=== PATIENT | male | born 1940 | race Caucasian/White ===

== ENCOUNTER → 2017-06-25 11:13 | Outpatient (CLI) | payer MEDICARE, SELFPAY ==
[2017-06-25 11:40] LABS: Absolute Lymphocyte Count 0.95 X10^3/ul (0.83-4.51); Absolute Neutrophil Count 2.7 X10^3/uL (2.0-7.7); Basophil# 0.05 X10^3/uL; Basophil% 1.1 % (0-1); Eosinophil# 0.24 X10^3/uL; Eosinophils% 5.3 % (0-5); Hematocrit 40.5 % (40-54); Hemoglobin 13.2 g/dl (13.0-16.5); Lymphocyte # 0.95 X10^3/ul (4.0); Lymphocyte % 20.9 % (19-41); Mean Corp Hgb Conc 32.6 g/gl (32-36); Mean Corpuscular Hgb 28.7 pg (27.0-32.0); Mean Platelet Vol. 9.3 fl (6.2-12.0); Monocyte# 0.62 X10^3/uL; Monocyte% 13.7 % (0-10); Neutrophil # 2.67 X10^3/uL (2.7-7.7); Neutrophil % 58.8 % (47-70); Platelet Count 211 K/mm3 (150-450); RBC Distribution Width CV 14.1 % (11.6-14.6); RBC Distribution Width SD 45.3 fl (35.1-43.9); White Blood Count 4.5 K/mm3 (4.4-11.0)
[2017-06-25 11:41] LABS: POSITIVE COUNT NO; POSITIVE DIFFERENTIAL NO; POSITIVE MORPHOLOGY NO
== END ==
PROVIDERS: Family Provider Family Medicine; PCP Family Medicine
DX: D64.9 Anemia, unspecified (principal)
CPT/HCPCS: 36415; 85025

== ENCOUNTER → 2018-01-01 09:24 | Outpatient (CLI) | payer MEDICARE, SELFPAY ==
[2018-01-01 12:28] LABS: PSA,Total- Diagnostic < 0.01 ng/mL (0.0-4.0)
== END ==
PROVIDERS: Family Provider Family Medicine; PCP Family Medicine; Visit Provider Urology
DX: C61 Malignant neoplasm of prostate (principal)
CPT/HCPCS: 36415; 84153

== ENCOUNTER → 2018-03-04 10:39 | Outpatient (CLI) | payer MEDICARE, SELFPAY ==
[2017-08-29 08:55] VITALS: BMI 26.4
--- NOTE | 2018-03-04 | CYSPIN_PTH ---
PATIENT: MARICEL DANIEL LOC: [facility] U#:[id number] AGE/SX: 84/M ROOM: RE03/04/[address]: Dr. Garett Castaneda MD : 1940 BED: DIS: SPEC #: [id number] RECD: 03/04/18 14:43 STATUS: HILARY MONALISA #: [id number] CRISTIANA: 03/04/18 00:[address]: Garett Castaneda DEPT: CYTOLOGY RECD BY: Melvin Severino Tissues: Urine Procedures: Pap Stain (control) Special Stain Group II Cytospin Fluid HEADER OPERATION: Not noted PRE-OP DIAGNOSIS: Hematuria TISSUE SUBMITTED: Urine for cytology DIAGNOSIS CYTOLOGY Urine for cytology (cytospin): Negative for malignant cells. AM:iram 03/05/18 COMMENT The specimen primarily contains blood and scattered degenerating epithelioid cells. Clinical correlation is suggested. CYTOLOGY STUDY Slides are reviewed. CYTOLOGY GROSS Received is 5 ml of brown cloudy fluid labeled with the patient's name and and designated per the requisition as urine. Submitted for cytology preparation. 03/04/18 TC:5 CPT: 06511
[2018-03-04 12:47] LABS: Absolute Lymphocyte Count 0.77 X10^3/ul (0.83-4.51); Absolute Neutrophil Count 3.8 X10^3/uL (2.0-7.7); Basophil# 0.04 X10^3/uL; Basophil% 0.7 % (0-1); Eosinophil# 0.15 X10^3/uL; Eosinophils% 2.8 % (0-5); Hematocrit 41.8 % (40-54); Hemoglobin 13.6 g/dl (13.0-16.5); Lymphocyte # 0.77 X10^3/ul (4.0); Lymphocyte % 14.1 % (19-41); Mean Corp Hgb Conc 32.5 g/gl (32-36); Mean Corpuscular Hgb 29.5 pg (27.0-32.0); Mean Corpuscular Volume 90.7 fL (80-94); Mean Platelet Vol. 10.1 fl (6.2-12.0); Monocyte# 0.67 X10^3/uL; Monocyte% 12.3 % (0-10); Neutrophil # 3.81 X10^3/uL (2.7-7.7); Neutrophil % 69.9 % (47-70); Platelet Count 220 K/mm3 (150-450); RBC Distribution Width SD 46.1 fl (35.1-43.9); Red Blood Count 4.61 M/mm3 (4.6-6.2); White Blood Count 5.5 K/mm3 (4.4-11.0)
[2018-03-04 12:57] LABS: POSITIVE COUNT NO; POSITIVE DIFFERENTIAL NO; POSITIVE MORPHOLOGY NO
[2018-03-04 13:08] LABS: ALB/GLOB Ratio 1.3 RATIO (0.9-2.4); AST(SGOT) 15 U/L (15-37); Alanine Aminotransfer ALT/SGPT 17 U/L (16-61); Albumin, Serum 3.6 g/dL (3.2-5.0); Alkaline Phosphatase 90 U/L (45-117); Anion Gap 8 (5-15); BUN 11 mg/dL (7-18); BUN/Creat Ratio 15.8 RATIO (10-20); Calcium,Total 8.8 mg/dL (8.5-10.1); Chloride 109 mmol/L (98-107); EST Glomerular Filtration Rate 116 mL/min (>60); Est Glom Filt Rate - Afr Amer 140 mL/min (>60); Globulin 2.8 g/dL (2.2-4.2); Glucose 102 mg/dL (74-106); Potassium 4.2 mmol/L (3.5-5.1); Protein, Total 6.4 g/dL (6.4-8.2); Sodium Level 142 mmol/L (136-145)
[2018-03-04 13:29] LABS: Cytology, Body Fluid / CSF SEE PATHOLOGY REPORT; Mucous, Urine 0 SEEN /hpf (<or=2+); Squamous Epithelial Cells - UA 0 SEEN /hpf (0-5)
[2018-03-04 13:41] LABS: Color, Urine Amber (Yellow); Glucose, Dipstick Normal (Normal); Ketone-Dipstick 5 mg/dl (Negative); Leukocyte Esterase-Dipstick 100 /ul (Negative); Nitrite-Dipstick Positive (Negative); Occult Blood-Urine 250 /ul (Negative); Protein-Dipstick 100 mg/dl (Negative); Urine Bilirubin Dipstick Negative (Negative); Urine Clarity Sl. Cloudy (Clear); Urine Urobilinogen 1 mg/dl (Normal)
[2018-03-04 13:48] LABS: Bacteria 1+ /hpf (None Seen); Red Blood Cells-Urine 25-50 SEEN /hpf (0-5); White Blood Cells 10-25 SEEN /hpf (0-5)
[2018-03-04 14:09] LABS: Microalbumin:Creatinine Ratio 51.5 mg/g CRE (<30 mg/g CRE)
== END ==
PROVIDERS: Family Provider Family Medicine; PCP Family Medicine; Referring Provider Family Medicine; Visit Provider Family Medicine
DX: R31.0 Gross hematuria (principal)
CPT/HCPCS: 36415; 80053; 81001; 82043; 82570; 85025; 87086; 87088; 88108; 88313

== ENCOUNTER → 2018-03-08 13:48 | Outpatient (CLI) | payer MEDICARE, SELFPAY ==
--- NOTE | 2018-03-08 13:53 | US_ITS ---
STUDY: RENAL ULTRASOUND - COMPLETE REASON FOR EXAM: Male, 77 years old. Gross hematuria and flank pain TECHNIQUE: Ultrasound evaluation of the kidneys was performed with real-time and static durant-scale imaging. COMPARISON: CT abdomen and pelvis 10/25/2013. FINDINGS: RIGHT KIDNEY: Normal location of the right kidney, which is normal in size. The right kidney measures 11 x 6.5 x 5 cm. There is a normal cortex of the right kidney. The renal cortex measures 1 cm. There is a cortical upper pole 1.4 x 1.3 x 1.2 cm, inferior pole 1.4 x 1.4 x 1.7 cm, and exophytic upper pole 0.5 cm cyst right renal mass or cyst. There are no right renal calculi. There is no right hydronephrosis. DISTAL RIGHT URETER: There is non-visualization of the distal right ureter. There is no demonstrated right ureterovesical junction calculus. There is no demonstrated right ureteral jet. LEFT KIDNEY: Normal location of the left kidney, which is normal in size. The left kidney measures 12.5 x 6 x 5 cm. There is a normal cortex of the left kidney. The renal cortex measures 1.4 cm. There is a mid renal 1.4 x 1.2 x 1.2 and a 1.1 x 1.0 x 1.3 cm cyst. There are no left renal calculi. There is no left hydronephrosis. DISTAL LEFT URETER: There is non-visualization of the distal left ureter. There is no demonstrated left ureterovesical junction calculus. There is no demonstrated left ureteral jet. Multiple calcified granulomata. BLADDER: The distended urinary bladder has a volume of 5.5 ml. US/Kidney and Bladder IMPRESSION: Bilateral renal cysts without hydronephrosis. Insufficient distention of the urinary bladder. Electronically Signed: Liz Griffith MD at 7:03 EST , Service support ,
== END ==
PROVIDERS: Family Provider Family Medicine; PCP Family Medicine; Referring Provider Family Medicine; Visit Provider Family Medicine
DX: R31.0 Gross hematuria (principal)
CPT/HCPCS: 76770

== ENCOUNTER → 2018-05-01 14:45 | Outpatient (CLI) | payer MEDICARE, SELFPAY ==
[2018-04-02 13:29] VITALS: BMI 25.6
--- NOTE | 2018-05-01 14:49 | CT_ITS ---
STUDY: CT ABDOMEN AND PELVIS WITH AND WITHOUT CONTRAST REASON FOR EXAM: Male, 77 years old. Gross hematuria RADIATION DOSAGE (If Supplied By Facility): CTDIvol = ( 27.64 ) mGy, DLP = ( 2843.62 ) mGycm TECHNIQUE: Transaxial images were obtained from the dome of the diaphragm to the symphysis pubis without oral contrast. 100 ml of Isovue 300 contrast was administered. Sagittal and coronal images were reconstructed. Individualized dose optimization techniques were used for this CT. COMPARISON: January 01, 2014 FINDINGS: The lung bases are clear. Occasional small cystic areas in the liver. No dilated intrahepatic biliary radicles. The gallbladder is normal with no calcifications within it. There is no pericholecystic fluid collection or streakiness The spleen is normal. The pancreas is normal. Both adrenals are normal. Small benign cysts bilaterally in the kidneys The stomach is normal. There is no bowel distention, acute appendicitis or diverticulitis. No constricting lesions are seen in large bowel. The abdominal wall is intact with no hernias. There is no ascites or any free intraperitoneal air. No indication of epiploic appendagitis The vascular structures in the retroperitoneum are normal. There is no retrocrural, retroperitoneal or mesenteric adenopathy. Severe osteoarthritis of the hips especially the left with a 3.4 cm left sided iliopsoas bursal fluid collection. 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 Gross hematuria The urinary bladder is normal.--Metallic seeds within the prostate. There is no inguinal or pelvic adenopathy. There is no inguinal hernia. . CT/CT Abd/Pelvis W/WO Contrast IMPRESSION: No acute appendicitis or diverticulitis. Benign renal cysts bilaterally. No calyceal calculi. 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 A large 3.7 cm left iliopsoas bursal fluid collection (bursitis). The fluid collection has increased from 1.8 cm in the last study of January 01, 2014 Electronically Signed: Otto Sandoval MD at 4:02 EST Tel , Service support ,
[2018-05-01 15:00] LABS: CREATININE FINGERSTICK 0.8 mg/dL (0.70-1.30); EGFR FINGERSTICK > 60.0000 mL/min (>60)
--- OUTSIDE RECORDS SUMMARY | 2018-07-06 13:47 | XMS RPT_ITS ---
:1940 Author Organization OHIP Care Team Providers Name Role Phone Marcos Ruffin Attending Unavailable Castaneda, Lindsey Referring Unavailable Deny Mcnamara Attending Unavailable Deny Mcnamara Referring Unavailable Castaneda, Lindsey Primary Care Unavailable CLAYTON JACKSON Referring Unavailable Castaneda, Lindsey Primary Care Unavailable Aftab Ortega Consulting Unavailable CLAYTON JACKSON Attending Unavailable Tg Jean Attending Unavailable Natalie Perry Attending Unavailable Ángel Garza Attending Unavailable Castaneda, Lindsey Referring Unavailable Castaneda, Lindsey Primary Care Unavailable Aftab Ortega Attending Unavailable Aftab Ortega Referring Unavailable Castaneda, Lindsey Primary Care Unavailable Castaneda Lindsey Attending Unavailable Castaneda, Lindsey Primary Care Unavailable Castaneda, Lindsey Referring Unavailable Castaneda, Lindsey Attending Unavailable Castaneda, Lindsey Referring Unavailable Lindsey Castaneda Primary Care Unavailable DENY MCNAMARA Attending Unavailable LINDSEY CASTANEDA Referring Unavailable Sintia MCNAMARA DENY Shepard Attending Unavailable LINDSEY CASTANEDA Referring Unavailable LINDSEY CASTANEDA A Primary Care Unavailable PROBLEMS PROBLEMS DATE TYPE CONDITION / CODE ATTENDING STATUS SOURCE 04/19/2018 Active Gross hematuria / NAIMAALEXDENY Active [place] R31.0(ICD-10) [facility] Other [place] Repository 04/19/2018 Active Malignant neoplasm NAIMA DENY Active [place] of prostate / [facility] Other C61(ICD-10) [place] Repository 04/19/2018 Active Urgency of NAIMA DENY Active [place] urination / [facility] Other R39.15(ICD-10) [place] Repository 04/19/2018 Admitting Unknown / Sintia MCNAMARA Active [facility] diagnosis UNK(Unknown) DENY [facility] Repository 03/04/2018 Unknown R31.0 - Gross CastanedaLindsey Active [place] hematuria / [facility] R31.0(ICD-10) Hospital Repository 01/01/2018 Unknown C61 - Malignant Jordan, Aftab Active [place] neoplasm of [facility] prostate / Hospital C61(ICD-10) Repository 08/29/2017 Unknown I48.91 - Roof, Ángel Ca Active [place] Unspecified atrial Community fibrillation / Hospital I48.91(ICD-10) Repository 06/25/2017 Unknown D64.9 - Anemia, CLAYTON JACKSON Active [place] unspecified / Community D64.9(ICD-10) Hospital Repository PROCEDURES PROCEDURES No Procedure Records FoundRESULTS RESULTS CREATININE FINGERSTICK Collected: 05/01/2018 Status: F Source: [place] 2:[address] [facility] REPOSITORY TYPE CODE TESTS RESULT OUT OF RANGE REFERENCE UNITS LAB L9100.0210 0.70-1.30 mg/dL Normal CREATININE WB 0.8 LAB L9100.0220 >60 mL/min EGFR WB Normal > 60.0000 Performed By: #### L9100.0200 #### [facility] Point of Care [address] [place] [address] CT ABD/PELVIS W/WO Observed: 05/01/2018 Status: F Source: [place] CONTRAST 2:[address] [facility] REPOSITORY [facility] Imaging Services [address] [place] [address] CT Abd/Pelvis W/WO Contrast MR#: [id number] Acct: [id number] Name: RONAL DANIEL Rep #: [id number] : 1940 M 77 From: Otto Sandoval MD PCP: Lindsey Castaneda MD Status: REG CLI Study: CT Abd/Pelvis W/WO Contrast Date of Exam: 05/01/18 Exam# [id number] Ordering Dr: Deny Mcnamara MD STUDY: CT ABDOMEN AND PELVIS WITH AND WITHOUT CONTRAST REASON FOR EXAM: Male, 77 years old. Gross hematuria RADIATION DOSAGE (If Supplied By Facility): CTDIvol = ( 27.64 ) mGy, DLP = ( 2843.62 ) mGycm TECHNIQUE: Transaxial images were obtained from the dome of the diaphragm to the symphysis pubis without oral contrast. 100 ml of Isovue 300 contrast was administered. Sagittal and coronal images were reconstructed. Individualized dose optimization techniques were used for this CT. COMPARISON: January 01, 2014 FINDINGS: The lung bases are clear. Occasional small cystic areas in the liver. No dilated intrahepatic biliary radicles. The gallbladder is normal with no calcifications within it. There is no pericholecystic fluid collection or streakiness The spleen is normal. The pancreas is normal. Both adrenals are normal. Small benign cysts bilaterally in the kidneys The stomach is normal. There is no bowel distention, acute appendicitis or diverticulitis. No constricting lesions are seen in large bowel. The abdominal wall is intact with no hernias. There is no ascites or any free intraperitoneal air. No indication of epiploic appendagitis The vascular structures in the retroperitoneum are normal. There is no retrocrural, retroperitoneal or mesenteric adenopathy. Severe osteoarthritis of the hips especially the left with a 3.4 cm left sided iliopsoas bursal fluid collection. 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 Gross hematuria The urinary bladder is normal.--Metallic seeds within the prostate. There is no inguinal or pelvic adenopathy. There is no inguinal hernia. . CT/CT Abd/Pelvis W/WO Contrast IMPRESSION: No acute appendicitis or diverticulitis. Benign renal cysts bilaterally. No calyceal calculi. 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 A large 3.7 cm left iliopsoas bursal fluid collection (bursitis). The fluid collection has increased from 1.8 cm in the last study of January 01, 2014 Electronically Signed: Otto Sandoval MD at 4:02 EST Tel , Service support , CC: Deny Mcnamara MD; Lindsey Castaneda MD; Aftab Ortega MD Salad Maker: Signed CNPN Observed: 04/24/2018 Status: COMPLETED Source: [facility] 12:00 AM CLINIC OTHER CAMPUS REPOSITORY Telephone (UROLAE) RONAL DANIEL ([id number]) 1940 M [facility] Date Time Provider Department 04/24/18 DENY MCNAMARA During your visit today, we recorded the following information about you: Macie Ramirez 04/24/2018 10:55 AM Addendum Amisha from [facility] called asking to speak with you regarding this patient's insurance. She said that it is OON for their facility. If he wants to keep the appointment, he will have to sign a form stating that he is financially responsible. She also said that she spoke with their precert department and they informed her that he may have OON benefits. If he does, our office is responsible for following the protocol to get it covered. She also mentioned that the order needed faxed, which I went ahead and did. This is FYI. Call back # . Allergies As of Date: 04/24/2018 Noted Allergy Reaction ROFECOXIB 09/22/2010 16 - Unknown TETANUS AND DIPHTHERIA TOXOIDS, A*05/24/2007 Comments: Sweating and blood presure drops Date Reviewed: 04/19/2018 Reviewed by: Deny Mcnamara - Fully Assessed Reason for Visit: CT Scan [Other] Prescriptions as of 04/24/2018 Sig: AMLODIPINE 5 MG TABLET Take 5 mg by mouth. LEFLUNOMIDE 10 MG TABLET LEFLUNOMIDE 10 MG TABS PREDNISONE 5 MG TABLET PREDNISONE 5 MG TABS XARELTO 20 MG TABLET Take 20 mg by mouth daily wit* ACETAMINOPHEN 500 MG TABLET TYLENOL ARTHRITIS PAIN 650 MG* MIRABEGRON ER 50 MG TABLET,EX* Take 1 tablet by mouth once d* CITALOPRAM 10 MG TABLET Take 10 mg by mouth once guero* * HYDROXYCHLOROQUINE 200 MG TAB* Take 1 tablet by mouth twice * * CELEBREX 200 MG CAPSULE Take one(1) capsule daily. Problem List As Of Date 04/24/2018 Noted Resolved JOINT PAIN-SHLDER [M25.519] INVALID FOR* TRAUM ARTHROPATHY-SHLDER [M12.519] INVALID FOR* Generalized pain [R52] INVALID FOR* Other physical therapy [CNK1853] INVALID FOR* Acute gastritis without mention of hemorrhage [*INVALID FOR* Hemorrhage of gastrointestinal tract, unspecifi*INVALID FOR* Diverticulosis of colon (without mention of hem*INVALID FOR* Nonspecific abnormal finding in stool contents *INVALID FOR* Internal hemorrhoids without mention of complic*INVALID FOR* Piriformis syndrome [G57.00] INVALID FOR* Achilles bursitis or tendinitis [M76.60] INVALID FOR* Lumbar spondylosis [M47.816] INVALID FOR* Trochanteric bursitis [M70.60] INVALID FOR* Lumbar radiculopathy [M54.16] INVALID FOR* Lumbar spondylosis [M47.816] INVALID FOR* Lumbar stenosis [M48.061] INVALID FOR* Muscle weakness (generalized) [M62.81] INVALID FOR* Tibialis tendinitis [M76.829] INVALID FOR* Pain in joint, lower leg [M25.569] INVALID FOR* Encounter Status:Closed by MACIE MOREIRA on 04/24/18 GLORIA Observed: 04/19/2018 Status: COMPLETED Source: [place] 11:00 AM CLINIC OTHER CAMPUS REPOSITORY Office Visit (AKURFL) ERMARONAL JULIAN ([id number]) 1940 M [facility] Date Time Provider Department 04/19/18 11:00 AM DENY MCNAMARA During your visit today, we recorded the following information about you: Blood pressure Weight Height 148/92 86.2 kg 1.829 m Deny Mcnamara MD 04/19/2018 12:53 PM Signed NEW PATIENT HISTORY AND PHYSICAL EXAM HPI Ronal Daniel is a 77 year old male who presents with hematuria; 3 - 4 day gross hematuria ; In Feb 2018 ; Was given 1 week abx ; ; resolved ; No recurrence ; H/o IMRT , 40 tx in 2013 ; Dr Car Developed urgency and frequency ; soft stools ; Reports recent PSA approx 2 - 3 m ago ; states was very low ; 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 5 TIMES IN PAST MONTH NEED TO URINATE AGAIN WITHIN 2 HRS OF LAST EMPTY? 5 TIMES IN PAST MONTH YOU HAVE STOPPED AND STARTED URINE FLOW? 0 TIMES IN THE PAST MONTH YOU FOUND IT DIFFICULT TO POSTPONE URINATING? 4 TIMES IN THE PAST MONTH YOU HAVE HAD A WEAK URINARY STREAM? 5 TIMES IN PAST MONTH YOU HAVE HAD TO PUSH OR STRAIN TO URINATE? 0 TIMES IN PAST MONTH YOU GET UP TO URINATE FROM SLEEP UNTIL AWAKE? 4 HOW WOULD YOU FEEL IF YOU HAD TO LIVE WITH YOUR URINARY CONDITION IT IS NOW? 6 - Terrible WHAT IT THE TOTAL AUA SCORE? 23 Renal US : report [place] 03/08/18: B renal cysts , no hydro ; Cytology negative 03/04/18 UA nov nitrite + ; culture negative Pr CA : 10/14/13: R apex Dilliner 7 = 3 + 4 , R base Gl 6 = 3 + 3 Creatinine Date Value Ref Range Status 07/30/2000 0.8 0.7 - 1.4 mg/dL Final No results found for: PSA No results found for: COLOR, CLARITY, UGLUC, UBILI, UKET, SPGR, UHB, UPH, UPROT, UROBILINOGEN, NITRITES, LEUKEST REVIEW OF SYSTEMS Review of Systems Constitutional: Positive for chills. Negative for fatigue, fever and unexpected weight change. HENT: Negative for sore throat and trouble swallowing. Eyes: Positive for visual disturbance. Respiratory: Negative for shortness of breath and wheezing. Cardiovascular: Negative for chest pain and leg swelling. Gastrointestinal: Positive for abdominal pain, blood in stool, constipation and diarrhea. Negative for nausea. Endocrine: Positive for cold intolerance, heat intolerance and polyuria. Genitourinary: Positive for decreased urine volume, dysuria, frequency, hematuria and urgency. Negative for difficulty urinating, enuresis and flank pain. Nocturia ED Dribbling Musculoskeletal: Positive for arthralgias and back pain. Skin: Negative for rash. Neurological: Positive for dizziness. Negative for headaches. Hematological: Does not bruise/bleed easily. Psychiatric/Behavioral: Negative for behavioral problems and confusion. Anxiety MEDICATIONS: amLODIPine (NORVASC) 5 mg tablet, Take 5 mg by mouth. leflunomide (ARAVA) 10 mg tablet, LEFLUNOMIDE 10 MG TABS predniSONE (DELTASONE) 5 mg tablet, PREDNISONE 5 MG TABS XARELTO 20 mg tablet, Take 20 mg by mouth daily with dinner. acetaminophen (TYLENOL) 500 mg tablet, TYLENOL ARTHRITIS PAIN 650 MG CR-TABS citalopram hydrobromide 10 mg tablet, Take 10 mg by mouth once daily. hydroxychloroquine (PLAQUENIL) 200 mg ORAL tablet, Take 1 tablet by mouth twice daily. celecoxib(CELEBREX 200 MG CAP), Take one(1) capsule daily. iv contrast (will be provided with radiology test), CT Urogram WO/W Inject, intravenously, once for 1 dose.No IV access, insert saline lock prior to the beginning of sedation, infusion, injection of imaging exam. Discontinue saline lock post exam. If Pt. has a central line or IVAD, may access for administration according to line specific nursing protocol. Once exam is complete flush line and de-access according to line specific nursing protocol in the CT contrast administration guidelines link. 0.9 % sodium chloride (NACL 0.9%) solution, Inject 172.4 mL intravenously one time only for 1 dose. Administer at rate defined per CT contrast administration specifications. To be provided with radiology test. mirabegron (MYRBETRIQ) 50 mg Tb24, Take 1 tablet by mouth once daily. HISTORIES PAST MEDICAL HISTORY Diagnosis Date - Arthritis - Bladder infection - Diverticulosis of colon (without mention of hemorrhage) - Hemorrhage of gastrointestinal tract, unspecified - Impotence - PMH - PAST MEDICAL HISTORY OF chronic inflammation left shoulder PAST SURGICAL HISTORY Procedure Laterality Date - COLONOSCOP W/ OR W/O [facility] SPEC 09/19/2010 Colonoscopy - EGD W/O OR W/BRUSH/WASH 09/19/2010 EGD - KNEE SCOPE,DIAGNOSTIC Arthroscopy, knee both - REPAIR ACHILLES TENDON 05/22/12 [facility] - REPAIR ING HERNIA,5+Y/O,REDUCIBL Hernia repair, inguinal - REPAIR ROTATOR CUFF,ACUTE Rotator cuff repair X 2 - left - Right shoulder injection aprox 1 year ago. - TOTAL KNEE REPLACEMENT Knee replacement, total left SOCIAL HISTORY Social History Substance Use Topics - Smoking status: Former Smoker - Smokeless tobacco: Never Used Comment: quit at age 19 after smoking for 5 years - Alcohol use Yes Comment: wine- none for 3 months Review of system, history including past medical history, surgical history, family history and social history reviewed and confirmed by me. PHYSICAL EXAMINATION General appearance: Well appearing, alert, in no acute distress and well-hydrated, well nourished Skin: Respiratory: normal resp effort ; ASSESSMENT/PLAN: 1. Gross hematuria - ICD9: 599.71, ICD10: R31.0 (primary diagnosis) - CT UROGRAM WO/W IVCON - IV CONTRAST (RADIOLOGY PROCEDURE) - SODIUM CHLORIDE 0.9 % INTRAVENOUS SOLUTION 2. Malignant neoplasm of prostate (HCC) - ICD9: 185, ICD10: C61 3. Urgency of urination - ICD9: 788.63, ICD10: R39.15 Deny Mcnamara MD Check CT urogram, Trial myrbetriq Call with result ; He will still f/u with urologist in [place] I spent 35 minutes in the visit, with more than 50% of the total [id number] time of the visit in counseling / coordination of care. Referring Provider: LINDSEY CASTANEDA [[id number]] Allergies As of Date: 04/19/2018 Noted Allergy Reaction ROFECOXIB 09/22/2010 16 - Unknown TETANUS AND DIPHTHERIA TOXOIDS, A*05/24/2007 Comments: Sweating and blood presure drops Date Reviewed: 04/19/2018 Reviewed by: Deny Mcnamara - Fully Assessed Reason for Visit: Hematuria [335] Primary Visit Diagnosis:Gross hematuria [R31.0] Other Visit Diagnoses:Malignant neoplasm of prostate (HCC) [C61] Urgency of urination [R39.15] Order(s):UA DIP, URINE (POC) [[id number]] Order #: [id number]. #:[id number] CT UROGRAM WO/W IVCON [[id number]] Order #: [id number] FUTURE iv contrast (will be provided with radiology test)CT Urogram WO/W Inject, intravenously, once for 1 dose.No IV access, insert saline lock prior to the beginning of sedation, infusion, injection of imaging exam. Discontinue saline lock post exam. If Pt. has a central line or IVAD, may access for administration according to line specific nursing protocol. Once exam is complete flush line and de-access according to line specific nursing protocol in the CT contrast administration guidelines link.Disp: 1 EachRfl: 0 0.9 % sodium chloride (NACL 0.9%) solutionInject 172.4 mL intravenously one time only for 1 dose. Administer at rate defined per CT contrast administration specifications. To be provided with radiology test.Disp: 1 EachRfl: 0 mirabegron (MYRBETRIQ) 50 mg [id number] 1 tablet by mouth once daily.Disp: 30 tabletRfl: 11 Prescriptions as of 04/19/2018 Sig: AMLODIPINE 5 MG TABLET Take 5 mg by mouth. LEFLUNOMIDE 10 MG TABLET LEFLUNOMIDE 10 MG TABS PREDNISONE 5 MG TABLET PREDNISONE 5 MG TABS XARELTO 20 MG TABLET Take 20 mg by mouth daily wit* ACETAMINOPHEN 500 MG TABLET TYLENOL ARTHRITIS PAIN 650 MG* CITALOPRAM 10 MG TABLET Take 10 mg by mouth once guero* * HYDROXYCHLOROQUINE 200 MG TAB* Take 1 tablet by mouth twice * * CELEBREX 200 MG CAPSULE Take one(1) capsule daily. IV CONTRAST (RADIOLOGY PROCED* CT Urogram WO/W Inject, intra* SODIUM CHLORIDE 0.9 % INTRAVE* Inject 172.4 mL intravenously* MIRABEGRON ER 50 MG TABLET,EX* Take 1 tablet by mouth once d* Problem List As Of Date 04/19/2018 Noted Resolved JOINT PAIN-SHLDER [M25.519] INVALID FOR* TRAUM ARTHROPATHY-SHLDER [M12.519] INVALID FOR* Generalized pain [R52] INVALID FOR* Other physical therapy [QPH1380] INVALID FOR* Acute gastritis without mention of hemorrhage [*INVALID FOR* Hemorrhage of gastrointestinal tract, unspecifi*INVALID FOR* Diverticulosis of colon (without mention of hem*INVALID FOR* Nonspecific abnormal finding in stool contents *INVALID FOR* Internal hemorrhoids without mention of complic*INVALID FOR* Piriformis syndrome [G57.00] INVALID FOR* Achilles bursitis or tendinitis [M76.60] INVALID FOR* Lumbar spondylosis [M47.816] INVALID FOR* Trochanteric bursitis [M70.60] INVALID FOR* Lumbar radiculopathy [M54.16] INVALID FOR* Lumbar spondylosis [M47.816] INVALID FOR* Lumbar stenosis [M48.061] INVALID FOR* Muscle weakness (generalized) [M62.81] INVALID FOR* Tibialis tendinitis [M76.829] INVALID FOR* Pain in joint, lower leg [M25.569] INVALID FOR* Prescriptions ordered this encounter Disp Refills Start End IV CONTRAST (RADIOLOGY PROCEDURE) 1 Ea* 0 04/19/2018 04/20/2018 Class: In Office Sig: CT Urogram WO/W Inject, intravenously, once for 1 dose.No IV access, insert saline lock prior to the beginning of sedation, infusion, injection of imaging exam. Discontinue saline lock post exam. If Pt. has a central line or IVAD, may access for administration according to line specific nursing protocol. Once exam is complete flush line and de-access according to line specific nursing protocol in the CT contrast administration guidelines link. SODIUM CHLORIDE 0.9 % INTRAVENOUS SO* 1 Ea* 0 04/19/2018 04/19/2018 Class: In Office Route: INTRAVENOUS Sig: Inject 172.4 mL intravenously one time only for 1 dose. Administer at rate defined per CT contrast administration specifications. To be provided with radiology test. MIRABEGRON ER 50 MG TABLET,EXTENDED * 30 t* 11 04/19/2018 Class: Print RX Route: ORAL Sig: Take 1 tablet by mouth once daily. Questionnaire: AUA QUESTIONNAIRE TIMES IN THE PAST MONTH YOU HAD A FEELING OF NOT EMPTYING BLADDER? -> 5 TIMES IN PAST MONTH NEED TO URINATE AGAIN WITHIN 2 HRS OF LAST EMPTY? -> 5 TIMES IN PAST MONTH YOU HAVE STOPPED AND STARTED URINE FLOW? -> 0 TIMES IN THE PAST MONTH YOU FOUND IT DIFFICULT TO POSTPONE URINATING? -> 4 TIMES IN THE PAST MONTH YOU HAVE HAD A WEAK URINARY STREAM? -> 5 TIMES IN PAST MONTH YOU HAVE HAD TO PUSH OR STRAIN TO URINATE? -> 0 TIMES IN PAST MONTH YOU GET UP TO URINATE FROM SLEEP UNTIL AWAKE? -> 4 HOW WOULD YOU FEEL IF YOU HAD TO LIVE WITH YOUR URINARY CONDITION IT IS NOW? * WHAT IT THE TOTAL AUA SCORE? -> 23 Letter Text Encounter Status:Closed by DENY MCNAMARA MD on 04/19/18 PROGRESS Observed: 04/19/2018 Status: COMPLETED [place]: [place] 10:26 AM [facility] OTHER CAMPUS REPOSITORY O ID: [id number] Author: Deny Mcnamara Service: (none) Author Type: Physician Type: Progress Notes Filed: 04/19/2018 12:53 PM Note Text: NEW PATIENT HISTORY AND PHYSICAL EXAM HPI Ronal Daniel is a 77 year old male who presents with hematuria; 3 - 4 day gross hematuria ; In Feb 2018 ; Was given 1 week abx ; ; resolved ; No recurrence ; H/o IMRT , 40 tx in 2013 ; Dr Car Developed urgency and frequency ; soft stools ; Reports recent PSA approx 2 - 3 m ago ; states was very low ; 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 5 TIMES IN PAST MONTH NEED TO URINATE AGAIN WITHIN 2 HRS OF LAST EMPTY? 5 TIMES IN PAST MONTH YOU HAVE STOPPED AND STARTED URINE FLOW? 0 TIMES IN THE PAST MONTH YOU FOUND IT DIFFICULT TO POSTPONE URINATING? 4 TIMES IN THE PAST MONTH YOU HAVE HAD A WEAK URINARY STREAM? 5 TIMES IN PAST MONTH YOU HAVE HAD TO PUSH OR STRAIN TO URINATE? 0 TIMES IN PAST MONTH YOU GET UP TO URINATE FROM SLEEP UNTIL AWAKE? 4 HOW WOULD YOU FEEL IF YOU HAD TO LIVE WITH YOUR URINARY CONDITION IT IS NOW? 6 - Terrible WHAT IT THE TOTAL AUA SCORE? 23 Renal US : report [place] 03/08/18: B renal cysts , no hydro ; Cytology negative 03/04/18 UA nov nitrite + ; culture negative Pr CA : 10/14/13: R apex Dilliner 7 = 3 + 4 , R base Gl 6 = 3 + 3 Creatinine Date Value Ref Range Status 07/30/2000 0.8 0.7 - 1.4 mg/dL Final No results found for: PSA No results found for: COLOR, CLARITY, UGLUC, UBILI, UKET, SPGR, UHB, UPH, UPROT, UROBILINOGEN, NITRITES, LEUKEST REVIEW OF SYSTEMS Review of Systems Constitutional: Positive for chills. Negative for fatigue, fever and unexpected weight change. HENT: Negative for sore throat and trouble swallowing. Eyes: Positive for visual disturbance. Respiratory: Negative for shortness of breath and wheezing. Cardiovascular: Negative for chest pain and leg swelling. Gastrointestinal: Positive for abdominal pain, blood in stool, constipation and diarrhea. Negative for nausea. Endocrine: Positive for cold intolerance, heat intolerance and polyuria. Genitourinary: Positive for decreased urine volume, dysuria, frequency, hematuria and urgency. Negative for difficulty urinating, enuresis and flank pain. Nocturia ED Dribbling Musculoskeletal: Positive for arthralgias and back pain. Skin: Negative for rash. Neurological: Positive for dizziness. Negative for headaches. Hematological: Does not bruise/bleed easily. Psychiatric/Behavioral: Negative for behavioral problems and confusion. Anxiety MEDICATIONS: amLODIPine (NORVASC) 5 mg tablet, Take 5 mg by mouth. leflunomide (ARAVA) 10 mg tablet, LEFLUNOMIDE 10 MG TABS predniSONE (DELTASONE) 5 mg tablet, PREDNISONE 5 MG TABS XARELTO 20 mg tablet, Take 20 mg by mouth daily with dinner. acetaminophen (TYLENOL) 500 mg tablet, TYLENOL ARTHRITIS PAIN 650 MG CR-TABS citalopram hydrobromide 10 mg tablet, Take 10 mg by mouth once daily. hydroxychloroquine (PLAQUENIL) 200 mg ORAL tablet, Take 1 tablet by mouth twice daily. celecoxib(CELEBREX 200 MG CAP), Take one(1) capsule daily. iv contrast (will be provided with radiology test), CT Urogram WO/W Inject, intravenously, once for 1 dose.No IV access, insert saline lock prior to the beginning of sedation, infusion, injection of imaging exam. Discontinue saline lock post exam. If Pt. has a central line or IVAD, may access for administration according to line specific nursing protocol. Once exam is complete flush line and de-access according to line specific nursing protocol in the CT contrast administration guidelines link. 0.9 % sodium chloride (NACL 0.9%) solution, Inject 172.4 mL intravenously one time only for 1 dose. Administer at rate defined per CT contrast administration specifications. To be provided with radiology test. mirabegron (MYRBETRIQ) 50 mg Tb24, Take 1 tablet by mouth once daily. HISTORIES PAST MEDICAL HISTORY Diagnosis Date - Arthritis - Bladder infection - Diverticulosis of colon (without mention of hemorrhage) - Hemorrhage of gastrointestinal tract, unspecified - Impotence - PMH - PAST MEDICAL HISTORY OF chronic inflammation left shoulder PAST SURGICAL HISTORY Procedure Laterality Date - [facility] - EGD W/O OR W/BRUSH/WASH 09/19/2010 EGD - KNEE SCOPE,DIAGNOSTIC Arthroscopy, knee both - REPAIR ACHILLES TENDON 05/22/12 [facility] - REPAIR ING HERNIA,5+Y/O,REDUCIBL Hernia repair, inguinal - REPAIR ROTATOR CUFF,ACUTE Rotator cuff repair X 2 - left - Right shoulder injection aprox 1 year ago. - TOTAL KNEE REPLACEMENT Knee replacement, total left SOCIAL HISTORY Social History Substance Use Topics - Smoking status: Former Smoker - Smokeless tobacco: Never Used Comment: quit at age 19 after smoking for 5 years - Alcohol use Yes Comment: wine- none for 3 months Review of system, history including past medical history, surgical history, family history and social history reviewed and confirmed by me. PHYSICAL EXAMINATION General appearance: Well appearing, alert, in no acute distress and well-hydrated, well nourished Skin: Respiratory: normal resp effort ; ASSESSMENT/PLAN: 1. Gross hematuria - ICD9: 599.71, ICD10: R31.0 (primary diagnosis) - CT UROGRAM WO/W IVCON - IV CONTRAST (RADIOLOGY PROCEDURE) - SODIUM CHLORIDE 0.9 % INTRAVENOUS SOLUTION 2. Malignant neoplasm of prostate (HCC) - ICD9: 185, ICD10: C61 3. Urgency of urination - ICD9: 788.63, ICD10: R39.15 Deny Mcnamara MD Check CT urogram, Trial myrbetriq Call with result ; He will still f/u with urologist in [place] I spent 35 minutes in the visit, with more than 50% of the total [id number] time of the visit in counseling / coordination of care. CARDIOLOGY VISIT Observed: 04/02/2018 Status: F Source: [place] REPORT 2:[address] [facility] REPOSITORY [facility] [address] [place] [address]. [address] [place] [address] OFFICE VISIT Date of Service: 04/02/18 MR#: [id number] Acct: [id number] Name: RONAL DANIEL Rep #: [id number] : 1940 Provider: Marcos Ruffin MD Age/Sex: 77/M Location: [facility] [place] Status: Signed [facility] Chief Complaint: Follow-up visit Details: RONAL DANIEL, is a 77 M who presents to the office today for a follow-up visit. He is a gentleman with a history of mild cardiomyopathy chronic persistent atrial fibrillation who returns for routine follow-up visit he denies any chest pain, shortness of breath, paroxysmal nocturnal dyspnea or pedal edema he has had no neck arm or jaw discomfort suggest angina no dizziness or diaphoresis no near syncope or syncope. He has been compliant with all his medications. His physical exam here today demonstrates clear lung vital irregular regular heart rate and no pedal edema. Intake Vital Signs04/02/18 Height 6 ft 1 in 04/02/18 Weight: 194 lb 04/02/18 Body Mass Index (BMI) 25.6 04/02/18 Blood Pressure 128/74 H H 04/02/18 Blood Pressure Location Lt brachial Intake Visit Reasons: 6 M FU Head Of Art Required: No Accompanied by: none Is patient in pain?: No Allergies rofecoxib [From Vioxx] Adverse Reaction (Severe, Verified 04/02/18 13:31) Mouth sores tetanus immune globulin Adverse Reaction (Severe, Verified 04/02/18 13:31) Hypotension, diaphresis Medications Acetaminophen [Tylenol Arthritis] 650 mg PO PRN PRN 05/24/16 [History Confirmed 04/02/18] Leflunomide [Arava] 20 mg PO DAILY 05/24/16 [History Confirmed 04/02/18] Rivaroxaban [Xarelto] 20 mg PO DAILY 05/24/16 [History Confirmed 04/02/18] [facility] Medical History Cardiomyopathy in other diseases classified elsewhere (Chronic) Hyperlipidemia (Chronic) Nonrheumatic aortic valve insufficiency (Chronic) Healed ulcer of left foot on examination (Acute) Peripheral vascular disease (Chronic) Skin ulcer of left foot with fat layer exposed (Chronic) Foot ulcer, left (Acute) Raynauds syndrome (Chronic) Atrial fibrillation (Chronic) Embolic disease of toe (Suspected) Malnutrition (Chronic) Rheumatoid arthritis (Chronic) Surgical History History of knee replacement (Resolved) Hx of hernia repair (Resolved) H/O repair of rotator cuff (Resolved) Family History Sister Hypertension Father Cancer Mother No problems noted. Social History Smoking Status: Never smoker alcohol intake: never substance use type: does not use caffeine: Yes Type: coffee Number of servings: 3 what type of physical activity do you participate in: none ROS Const Const: Negative for fatigue, weakness, night sweats, excessive sweating, frequent falls, headache(s) or daytime sleepiness Eyes Eyes: Negative for loss of peripheral vision, transient loss of vision, blind spots, double vision or blurry vision ENT ENT: Negative for headache(s), dizziness, balance problems, Nosebleed/epistaxis, tongue swelling or lip swelling Cardio Chest Pain: No Palpitations: No Edema: None Muscle aches with walking: None Resp Respiratory: Negative for SOB at rest, SOB orthopnea\SOB lying down, Cough, paroxysmal nocturnal dyspnea or SOB with activity GI GI: Negative nausea, vomiting, heartburn, black,tarry stools or bright, red blood in stools : Negative for hematuria Musc Musc: Negative for balance problems, muscle aches/ myalgia, muscle weakness or joint pain Skin Skin: Negative non-healing lesions, unusual bruising or rash Neuro Neuro: Negative for weakness, frequent falls, headache(s), double vision, dizziness, lightheadedness, orthostatic symptoms, blurry vision or lack of coordination Ramses Hematologic/Lymphatic: Negative for easy bruising or easy bleeding Endo Endo: Negative for fatigue, excessive sweating, cold intolerance, heat intolerance, increased thirst/drinking or hair loss Psych Psych: Negative for anxiety or depression Allergy Allergy/Immunology: Negative for throat swelling, Negative for tongue swelling, Negative for hives, Negative for rash, Negative for lip swelling Cardiology Exam Const Appearance: cooperative, healthy appearing, well developed, well groomed and no acute distress Nutritional Appearance: well nourished and average body habitus Orientation: alert, awake and oriented x3 Head Head: normal to inspection, normocephalic and atraumatic Ears: hearing grossly normal bilaterally and external ears normal Nose: external nose normal, nasal mucous membranes and turbinates normal, nares normal, septum normal, no nasal discharge Face and Sinus: face symmetric Mouth: oral mucosae normal, tongue normal, oropharynx normal and moist mucous membranes Teeth and gingiva: dentition normal Throat: posterior oropharynx normal, tonsils normal and uvula midline Eyes General: appearance normal, both eyes and all related structures Eyelids: eyelids normal Conjunctivae: conjunctivae normal Pupils: PERRL, normal by confrontation and accommodation normal EOM: EOM intact bilaterally Neck Neck: normal visual inspection, trachea midline and no JVD JVD: +5 Carotids: normal carotid upstroke and bounding pulses Chest Chest inspection: normal inspection of the chest, symmetric chest movement and normal respiratory effort Auscultation: Bilateral: Clear to Auscultation Cardio Palpation: normal PMI Rhythm: irregular rhythm Heart sounds: S1 normal and S2 normal GI GI: normal to inspection, soft, no hepatosplenomegaly and bowel sounds present Neuro General: alert, awake, oriented x3, no focal sensory deficit, gait normal and moves all extremities Skin Skin: no rashes or lesions noted Extremities Pulses: Normal: Right Femoral Pulse, Left Femoral Pulse, Right Dorsalis Pedis Pulse, Left Dorsalis Pedis Pulse, Right Posterior Tibial Pulse, Left Posterior Tibial Pulse, Right Radial Pulse, Left Radial Pulse Lower Extremity Edema: None: Bilateral Musculoskel Musculoskeletal: No joint tenderness Psych Psychological: normal affect Assessment AND Plan 1. Essential hypertension I10 Plan He does have a history of hypertension and his blood pressure appears to be very well controlled on the current medical therapy my recommendation is to continue the same without making any changes. His last echocardiogram demonstrated an ejection fraction of 45% with mild 1+ mitral regurgitation, tricuspid regurgitation, and aortic regurgitation. 2. Chronic atrial fibrillation I48.2 Plan He does have chronic persistent atrial for ablation with a controlled ventricular response rate. The plan will be for us to continue the same without making any changes. 3. Cardiomyopathy in other diseases classified elsewhere I43 Plan He does have mild cardiomyopathy with no evidence of heart failure. He is on the rivaroxaban at this particular time with no other medications. He has mild mitral tricuspid and aortic regurgitation but this does not appear to have caused any heart failure symptoms.Thank you for allowing me to participate in the care of your patient. Please don't hesitate to call if any issues arise Plan Detail Follow Up 6 Months (r) Coding Level of Care Code Off vis,est,level 3 Diagnoses Essential hypertension I10 Hypertension type: essential hypertension Chronic atrial fibrillation I48.2 Atrial fibrillation type: chronic Cardiomyopathy in other diseases classified elsewhere I43 Coding Level of Care Code Off vis,est,level 3 Diagnoses Essential hypertension I10 Hypertension type: essential hypertension Chronic atrial fibrillation I48.2 Atrial fibrillation type: chronic Cardiomyopathy in other diseases classified elsewhere I43 04/02/18 1402 <Electronically signed by Marcos Ruffin MD> Date Marcos Ruffin MD [facility] Signature: Date (if applicable) CC: Lindsey Castaneda MD KIDNEY AND BLADDER Observed: 03/08/2018 Status: F Source: [place] 1:[address] [facility] REPOSITORY [facility] Imaging Services [address] [place] [address] Kidney and Bladder MR#: [id number] Acct: [id number] Name: RONAL DANIEL Rep #: [id number] : 1940 M 77 From: Liz Griffith MD PCP: Lindsey Castaneda MD Status: REG CLI Study: Kidney and Bladder Date of Exam: 03/08/18 Exam# [id number] Ordering Dr: Lindsey Castaneda MD STUDY: RENAL ULTRASOUND - COMPLETE REASON FOR EXAM: Male, 77 years old. Gross hematuria and flank pain TECHNIQUE: Ultrasound evaluation of the kidneys was performed with real-time and static durant-scale imaging. COMPARISON: CT abdomen and pelvis 10/25/2013. FINDINGS: RIGHT KIDNEY: Normal location of the right kidney, which is normal in size. The right kidney measures 11 x 6.5 x 5 cm. There is a normal cortex of the right kidney. The renal cortex measures 1 cm. There is a cortical upper pole 1.4 x 1.3 x 1.2 cm, inferior pole 1.4 x 1.4 x 1.7 cm, and exophytic upper pole 0.5 cm cyst right renal mass or cyst. There are no right renal calculi. There is no right hydronephrosis. DISTAL RIGHT URETER: There is non-visualization of the distal right ureter. There is no demonstrated right ureterovesical junction calculus. There is no demonstrated right ureteral jet. LEFT KIDNEY: Normal location of the left kidney, which is normal in size. The left kidney measures 12.5 x 6 x 5 cm. There is a normal cortex of the left kidney. The renal cortex measures 1.4 cm. There is a mid renal 1.4 x 1.2 x 1.2 and a 1.1 x 1.0 x 1.3 cm cyst. There are no left renal calculi. There is no left hydronephrosis. DISTAL LEFT URETER: There is non-visualization of the distal left ureter. There is no demonstrated left ureterovesical junction calculus. There is no demonstrated left ureteral jet. Multiple calcified granulomata. BLADDER: The distended urinary bladder has a volume of 5.5 ml. US/Kidney and Bladder IMPRESSION: Bilateral renal cysts without hydronephrosis. Insufficient distention of the urinary bladder. Electronically Signed: Liz Griffith MD at 7:03 EST , Service support , CC: Lindsey Castaneda MD Salad Maker: Signed URINALYSIS, COMPLETE Collected: 03/04/2018 Status: F Source: [place] 1:[address] [facility] REPOSITORY Order Comment: COLOR OF URINE MAY AFFECT DIPSTICK RESULTS. How was Urine Obtained? CLEAN CATCH TYPE CODE TESTS RESULT OUT OF RANGE REFERENCE UNITS LAB L400.3000 Yellow COLOR Normal Dawn LAB L400.3050 Clear Normal CLARITY Sl. Cloudy LAB L400.3200 Normal mg/dl Normal GLUCOSE, UR Normal LAB L400.3300 Negative mg/dL Normal BILIRUBIN URINE Negative LAB L400.3400 Negative mg/dl High 5 KETONE UR LAB L400.3465 1.002-1.030 Normal SP.GR. DIPSTX 1.020 LAB L400.3550 5.0 - 8.0 pH UR Normal 5.0 LAB L400.3600 Negative mg/dl High PROT DIPSTX 100 LAB L400.3700 Normal mg/dl High 1 UROBILI LAB L400.3750 Negative High NITRITE UR Positive LAB L400.3780 Negative /ul High OCCULT BLOOD-UR 250 LAB L400.3800 Negative /ul High LEUK ESTERASE 100 LAB L400.4050 0-5 /hpf WBC Normal 10-25 SEEN LAB L400.4100 0-5 /hpf Normal RBC-UA 25-50 SEEN LAB L400.4150 0-5 /hpf SQUAM 0 Normal EPI SEEN LAB L400.4300 None Seen /hpf 1+ Normal BACTERIA LAB L400.4350 <or=2+ /hpf 0 Normal MUCUS, URINE SEEN Performed By: #### L400.0001 #### [facility] [address] [place], [address] MICROALB:CREAT Collected: 03/04/2018 Status: F Source: [place] RATIO,RANDOM UR 1:[address] [facility] REPOSITORY TYPE CODE TESTS RESULT OUT OF RANGE REFERENCE UNITS LAB L501.1200 NO RANGE EST. mg/dL Normal UR CREAT 237.00 LAB L502.0500 NO RANGE EST. mg/L Normal 122.0 MICROALBUMIN ,UR LAB L502.0600 <30 mg/g CRE mg/g CRE High 51.5 MALB:CREAT Performed By: #### L502.0250 #### [facility] [address] [place], [address] Observed: 03/04/2018 Status: F Source: [place] CULTURE, URINE 1:[address] [facility] REPOSITORY Urine Culture ORGANISM 1: Mixed Gram Pos AND Gram Neg Org Blackburn Count <1000 MIX CULTURE Mixed contaminants. Submit a new specimen if indicated. Performed By: #### M100.0650 #### [facility] [address] [place], [place], [address] CYTOLOGY, BODY FLUID / Collected: 03/04/2018 Status: F Source: [place] CSF 1:[address] [facility] REPOSITORY Order Comment: Specimen Source: URINE TYPE CODE TESTS RESULT OUT OF RANGE REFERENCE UNITS LAB L350.1000 SEE Normal PATHOLOGY CYTOLOGY,BF REPORT /CSF Result Comment: Specimen submitted to Anatomical Pathology Department for testing. Performed By: #### L350.1000 #### [facility] [address] [place], [address] CBC W/DIFF, AUTOMATED Collected: 03/04/2018 Status: F Source: [place] 10:[address] [facility] REPOSITORY TYPE CODE TESTS RESULT OUT OF RANGE REFERENCE UNITS LAB L100.1000 4.4-11.0 K/mm3 Normal WBC 5.5 LAB L100.1200 4.6-6.2 M/mm3 Normal RBC 4.61 LAB L100.1300 13.0-16.5 g/dl Normal HGB 13.6 LAB L100.1400 40-54 % Normal HCT 41.8 LAB L100.1500 80-94 fL Normal MCV 90.7 LAB L100.1600 27.0-32.0 pg Normal MCH 29.5 LAB L100.1700 32-36 g/gl Normal MCHC 32.5 LAB L100.1810 11.6-14.6 % Normal RDW CV 14.0 LAB L100.1820 35.1-43.9 fl High RDW SD 46.1 LAB L100.1900 150-450 K/mm3 Normal PLT 220 LAB L100.2000 6.2-12.0 fl Normal MPV 10.1 LAB L100.2100 47-70 % Normal NEUT% 69.9 LAB L100.2200 19-41 % Low LY% 14.1 LAB L100.2300 0-10 % High MONO% 12.3 LAB L100.2400 0-5 % Normal EO% 2.8 LAB L100.2500 0-1 % Normal BASO% 0.7 LAB L100.2550 0.0-0.9 % Normal IM GRAN % 0.200 Result Comment: IG% - Immature Granulocytes (promyelocytes, myelocytes and metamyelocytes) > 1% indicates that a LEFT SHIFT is Present. LAB L100.2620 2.0-7.7 X10 3/uL Normal Absolute Neut 3.8 LAB L100.2720 0.83-4.51 X10 3/ul Low Absolute Lymph 0.77 Performed By: #### L100.0100 #### [facility] [place], [address] COMPREHENSIVE METABOLIC Collected: 03/04/2018 Status: F Source: [place] CAPONE 10:[address] [facility] REPOSITORY TYPE CODE TESTS RESULT OUT OF RANGE REFERENCE UNITS LAB L501.0100 74-106 mg/dL Normal GLU 102 Result Comment: Fasting Glucose result from 100 to 125 mg/dL suggests IMPAIRED HOMEOSTASIS per A.D.A. criteria. Please note revised GLUCOSE reference range effective 2017. LAB L501.1000 7-18 mg/dL Normal BUN 11 LAB L501.1100 0.70-1.30 mg/dL Normal CREAT,SERUM 0.70 Result Comment: The validity of the calculated GFR AND GFRAA in patients over 70 years has not been determined. Clinical correlation is essential. LAB L501.1110 >60 mL/min Normal EST GFR 116 Result Comment: Non- GFR Calc LAB L501.1115 >60 mL/min Normal EST GFR - AA 140 Result Comment: GFR Calc LAB L501.1300 10-20 RATIO Normal BUN/CRE 15.8 LAB L501.1500 6.4-8.2 g/dL T Normal PROT 6.4 LAB L501.1800 3.2-5.0 g/dL Normal ALB 3.6 LAB L501.1950 2.2-4.2 g/dL Normal GLOB 2.8 LAB L501.2000 0.9-2.4 RATIO Normal A/G 1.3 LAB L501.2200 8.5-10.1 mg/dL CA Normal 8.8 LAB L501.4100 15-37 U/L Normal AST 15 LAB L501.4305 45-117 U/L Normal ALK P 90 LAB L501.4405 16-61 U/L Normal ALT 17 LAB L501.4600 0.20-1.00 mg/dL T Normal BILI 0.80 LAB L501.5300 136-145 mmol/L NA Normal 142 LAB L501.5600 3.5-5.1 mmol/L K Normal 4.2 LAB L501.5900 98-107 mmol/L High CL 109 LAB L501.6100 21.0-32.0 mmol/L Normal CO2 25.0 LAB L501.6200 5-15 Normal GAP 8 Performed By: #### L500.4050 #### [facility] [address] [place], [place], [address] CYTOSPIN ON FLUID Observed: 03/04/2018 Status: F Source: [place] 12:[address] [facility] REPOSITORY Patient: RONAL DANIEL : 1940 (77/M) Acct Num: [id number] Phys: Leonel COBIAN,Lindsey Unit Num: [id number] Loc: [facility] Specimen: [id number] Received: 03/04/18 - 1443 Spec Type: CYSPIN FL TISSUES 1 TISSUES: Urine COMMENT The specimen primarily contains blood and scattered degenerating epithelioid cells. Clinical correlation is suggested. CYTOLOGY GROSS Received is 5 ml of brown cloudy fluid labeled with the patient's name and and designated per the requisition as urine. Submitted for cytology preparation. / 03/04/18 TC:5 CPT: 02294 CYTOLOGY STUDY Slides are reviewed. DIAGNOSIS CYTOLOGY Urine for cytology (cytospin): Negative for malignant cells. AM:iram 03/05/18 HEADER OPERATION: Not noted PRE-OP DIAGNOSIS: Hematuria TISSUE SUBMITTED: Urine for cytology Signed Mehdi Fernando 03/05/18 <signature on file> Performed By: #### PCYSPIN #### [facility] [address] [place], [address] PSA,TOTAL- DIAGNOSTIC Collected: 01/01/2018 Status: F Source: [place] 9:[address] [facility] REPOSITORY TYPE CODE TESTS RESULT OUT OF RANGE REFERENCE UNITS LAB L501.9940 0.0-4.0 ng/mL PSA, Normal DIAGNOSTIC < 0.01 Result Comment: This test was performed using the TPSA assay method for the [employer] chemistry system. Values obtained with different assay methods cannot be used interchangably. When changing PSA assays in the course of monitoring a patient, additional sequential testing should be carried out to confirm baseline values. Performed By: #### L501.9940 #### [facility] [address] [place], [address] CARDIOLOGY VISIT Observed: 08/30/2017 Status: F Source: [place] REPORT 8:[address] [facility] REPOSITORY [facility] [address] [place] [address] OFFICE VISIT Date of Service: 08/29/17 MR#: [id number] Acct: [id number] Name: RONAL DANIEL Rep #: [id number] : 1940 Provider: DARNELL Garza Age/Sex: 77/M Location: [facility] Status: Signed HPI HPI Details: RONAL DANIEL, is a 77 M who presents to the office today for a cardiovascular outpatient follow-up. He has history of mild cardiomyopathy and persistent atrial fibrillation. Pt. denies chest, arm, jaw, or neck discomfort. His exercise tolerance is stable but minimal. Pt. denies symptoms of palpitations, lightheadedness, near syncope, or syncopal episodes. Pt. denies edema or claudication issues. Pt. denies orthopnea, PND, fever, chills, blood in urine, blood in stool, or myalgia. He states random episodes of SOB that is quickly relieved with deep breaths and is not limiting. He states random episode of dizziness that occurs in the morning and resolves on its own. He states his energy level fluctuates. Intake Vital Signs08/29/17 Height 6 ft 1 in 08/29/17 Weight: 200 lb 08/29/17 Body Mass Index (BMI) 26.4 08/29/17 Blood Pressure 142/80 Intake Visit Reasons: 6 M FU Head Of Art Required: No Accompanied by: none Is patient in pain?: No Allergies rofecoxib [From Vioxx] Adverse Reaction (Severe, Verified 08/29/17 08:56) Mouth sores tetanus immune globulin Adverse Reaction (Severe, Verified 08/29/17 08:56) Hypotension, diaphresis Medications Acetaminophen [Tylenol Arthritis] 650 mg PO PRN PRN 05/24/16 [History Confirmed 08/29/17] Leflunomide [Arava] 20 mg PO DAILY 05/24/16 [History Confirmed 08/29/17] Rivaroxaban [Xarelto] 20 mg PO DAILY 05/24/16 [History Confirmed 08/29/17] Ejection fraction %: 40 to 44 PFSH Medical History Cardiomyopathy in other diseases classified elsewhere (Chronic) Hyperlipidemia (Chronic) Nonrheumatic aortic valve insufficiency (Chronic) Healed ulcer of left foot on examination (Acute) Peripheral vascular disease (Chronic) Skin ulcer of left foot with fat layer exposed (Chronic) Foot ulcer, left (Acute) Raynauds syndrome (Chronic) Atrial fibrillation (Chronic) Embolic disease of toe (Suspected) Malnutrition (Chronic) Rheumatoid arthritis (Chronic) Surgical History History of knee replacement (Resolved) Hx of hernia repair (Resolved) H/O repair of rotator cuff (Resolved) Family History Sister Hypertension Father Cancer Mother No problems noted. Social History Smoking Status: Never smoker alcohol intake: never substance use type: does not use caffeine: Yes Type: coffee Number of servings: 3 what type of physical activity do you participate in: none ROS Const Const: Negative for weakness, body ache, fever(s), chills or fatigue ENT ENT: Positive for dizziness Cardio Chest Pain: No Palpitations: No Edema: None Muscle aches with walking: None Resp Respiratory: Positive for SOB with activity; negative for SOB at rest, SOB orthopnea\SOB lying down or paroxysmal nocturnal dyspnea GI GI: Negative nausea, black,tarry stools, bright, red blood in stools or vomiting blood/hematemesis : Negative for hematuria or frequent nighttime urination/ nocturia Musc Musc: Negative for muscle aches/ myalgia Skin Skin: Negative non-healing lesions or rash Neuro Neuro: Positive for dizziness; negative for lightheadedness, near syncope, syncope, orthostatic symptoms or weakness Endo Endo: Negative for fatigue Allergy Allergy/Immunology: Negative for rash Cardiology Exam Const Appearance: cooperative, healthy appearing, comfortable and no acute distress Orientation: alert, awake and oriented x3 Head Head: normal to inspection Ears: hearing grossly normal bilaterally Nose: external nose normal Face and Sinus: face symmetric Mouth: oral mucosae normal Eyes General: appearance normal, both eyes and all related structures Eyelids: eyelids normal Neck Neck: no JVD and normal visual inspection Carotids: normal carotid upstroke Chest Chest inspection: normal inspection of the chest and normal respiratory effort; negative cough Auscultation: Bilateral: Clear to Auscultation Cardio Rate: regular rate Rhythm: irregular rhythm Heart sounds: S1 normal and S2 normal; negative rub or gallop GI GI: normal to inspection Neuro General: alert, awake, oriented x3 and CN's II-XI intact bilaterally Skin Skin: no rashes or lesions noted Extremities Pulses: Normal: Right Posterior Tibial Pulse, Left Posterior Tibial Pulse, Right Radial Pulse, Left Radial Pulse Lower Extremity Edema: None: Bilateral Psych Psychological: normal affect Supplemental Info Echocardiogram from March 2017 showed an estimated ejection fraction 45%, mild global left ventricular systolic dysfunction, mild mitral valve insufficiency, mild tricuspid valve insufficiency, mild to moderate aortic valve insufficiency, mild pulmonic valve insufficiency, RSVP of 26 mmHg, and mild to moderately dilated aortic root of 4.8 cm. Heart catheterization from August 2010 showed ejection fraction of 40 45%, left main coronary artery with no obstructing lesions, LAD with no obstructing lesions, LCx with no obstructing lesions, and RCA with no obstructing lesions. Cardiovascular stress test from August 2010 was a normal exercise myocardial perfusion scan with no evidence of ischemia, previous inferior infarct cannot be excluded, and mild cardiomyopathy was noted. Ankle-brachial index from June 2014 showed no evidence of significant arterial occlusive disease with an REGGIE of 1.28 on the right and 1.19 on the left. Abdominal aorta ultrasound from June 2014 showed no aneurysm or stenosis seen through the aortoiliac segment. Assessment AND Plan 1. Chronic atrial fibrillation I48.2 VANESSA Costa Patient's EKG in office showed atrial fibrillation at a rate of 67 bpm. Patient does describe infrequent, random episodes of dizziness that may be result of his atrial fibrillation. Because this is occurs rarely, we will continue to monitor. He is not on any rate limiting medications. He will continue factor Xa inhibitor. 2. Cardiomyopathy in other diseases classified elsewhere I43 VANESSA Costa Patient's most recent echocardiogram from March 2017 showed estimated ejection fraction 45%. Patient denies any shortness of breath with activity, lower extremity edema, or weight gain. He is not on any diuretics, JEISON inhibitor, or beta-george. We will continue to monitor this. 3. Nonrheumatic aortic (valve) insufficiency I35.1 VANESSA Costa Echocardiogram from March 2017 showed mild to moderate aortic valve insufficiency. We will continue to monitor this through history, exam, and repeat echocardiogram. 4. Nonrheumatic mitral valve insufficiency I34.0 VANESSA Costa Echocardiogram from March 2017 showed mild mitral valve insufficiency. We will continue to monitor this. 5. Non-rheumatic tricuspid valve insufficiency I36.1 VANESSA Costa Echocardiogram from March 2017 showed mild tricuspid valve insufficiency and an RVSP of 26 mmHg. We will continue to monitor this. 6. 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 We will continue to monitor this. 7. Essential hypertension I10 Plan - VANESSA Duke Patient's blood pressure is slightly elevated today in office. He states it is better controlled previously and at other doctor offices. He was asked to continue to monitor this. He is not on any blood pressure medications. He was instructed to contact our office if he notices that it increases or remains elevated. Plan Detail Other Orders Orders: Additional Comments - VANESSA Duke Discussed the above patient with Dr. Ruffin, he agrees with the plan of care. Thank you for allowing us to participate in the patients plan of care, if you have any questions please do not hesitate to call. This note was generated using a voice recognition system and there may be incorrect words, spelling or punctuation that were not noted when reviewing the office note prior to saving. 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 Essential hypertension I10 Hypertension type: essential hypertension Coding Level of Care Code Off vis,est,level 3 Diagnoses Chronic atrial fibrillation I48.2 Atrial fibrillation type: chronic Cardiomyopathy in other diseases classified elsewhere I43 Nonrheumatic aortic (valve) 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 REPOSITORY [facility] [address] [place] [address] 12 Lead EKG performed by [facility] 08/29/17 0850 MR#: [id number] Acct: [id number] Name: RONAL DANIEL Rep #: [id number] : 1940 77 From: Ángel Garza SECTION LABORER-C Attending Dr: Ángel Garza NP Status: DEP AMB Ordering Dr: Ángel Garza SECTION LABORERMusaC Date: 08/29/17 Location: [facility] Sex: M C Admitted: BMS/12 Lead EKG performed by [facility] ECG Report Interpretation Atrial fibrillation - frequent multiform ectopic ventricular beats # VECs = 2, # types 2Low voltage in limb leads. ABNORMAL Electronically signed on 08/29/2017 at 16:56 by Marcos Ruffin 08/29/17 1658 Date Ángel Garza SECTION LABORER-C CC: Lindsey Castaneda MD Date Dictated: 08/29/17 0850 Date Transcribed: 08/29/1750 Salad Maker: EDWIN Signed CBC W/DIFF, AUTOMATED Collected: 06/25/2017 Status: F Source: [place] 11:[address] [facility] REPOSITORY TYPE CODE TESTS RESULT OUT OF RANGE REFERENCE UNITS LAB L100.1000 4.4-11.0 K/mm3 Normal WBC 4.5 LAB L100.1200 4.6-6.2 M/mm3 Normal RBC 4.60 LAB L100.1300 13.0-16.5 g/dl Normal HGB 13.2 LAB L100.1400 40-54 % Normal HCT 40.5 LAB L100.1500 80-94 fL Normal MCV 88.0 LAB L100.1600 27.0-32.0 pg Normal MCH 28.7 LAB L100.1700 32-36 g/gl Normal MCHC 32.6 LAB L100.1810 11.6-14.6 % Normal RDW CV 14.1 LAB L100.1820 35.1-43.9 fl High RDW SD 45.3 LAB L100.1900 150-450 K/mm3 Normal PLT 211 LAB L100.2000 6.2-12.0 fl Normal MPV 9.3 LAB L100.2100 47-70 % Normal NEUT% 58.8 LAB L100.2200 19-41 % Normal LY% 20.9 LAB L100.2300 0-10 % High MONO% 13.7 LAB L100.2400 0-5 % High EO% 5.3 LAB L100.2500 0-1 % High BASO% 1.1 LAB L100.2550 0.0-0.9 % Normal IM GRAN % 0.200 Result Comment: IG% - Immature Granulocytes (promyelocytes, myelocytes and metamyelocytes) > 1% indicates that a LEFT SHIFT is Present. LAB L100.2620 2.0-7.7 X10 3/uL Normal Absolute Neut 2.7 LAB L100.2720 0.83-4.51 X10 3/ul Normal Absolute Lymph 0.95 Performed By: #### L100.0100 #### [facility] [address] [place] [address]. [place], [place], [id number] ALLERGIES ALLERGIES DATE TYPE / CODE NAME / CODE REACTION SEVERITY SOURCE 04/02/2018 Drug tetanus immune Hypotension, [place] Allergy/416 globulin/[id number] diaphresis Community 676230([facility] 04/02/2018 Drug rofecoxib/[id number] mouth sores SV [place] Allergy/416 787(RXNORM) Community 757005([facility] ED CT) Repository 05/24/2016 Drug No Known Unknown [place] Allergy/416 Allergies/U765555 Community 750214([facility] 388[facility] Repository 09/22/2010 DRUG ROFECOXIB UNKNOWN High [facility] INGREDI/419 Other [place] 628083(SNOM Repository ED CT) 05/24/2007 DRUG TETANUS AND [facility] INGREDI/419 DIPHTHERIA Other [place] 075036(SNOM TOXOIDS, Repository ED CT) ADSORBED, ADULT NG/[id number] ROFECOXIB [facility] 6(SNOMED [facility]) Repository NG/80837427 TETANUS AND [facility] 6(SNOMED DIPHTHERIA [facility]) TOXOIDS, Repository ADSORBED, ADULT ENCOUNTERS ENCOUNTERS ADMIT/DISCHARGE ACCOUNT NUMBER ADMITTING ENCOUNTER LOCATION SOURCE CLASS 05/01/2018 [id number] Ambulatory [facility] ding:CT Repository 04/19/2018/04/19/19 [id number] Ambulatory [address] Repository 04/19/2018/04/19/19 [id number] Ambulatory [address] MEDICAL Repository CENTERBuildi ng:AKUF 04/02/2018/04/02/20 [id number] Ambulatory BMSBuilding: [place] 18 BMS.[facility] Repository 03/08/2018 [id number] Ambulatory [facility] ding:US Repository 03/04/2018 [id number] Ambulatory [facility] ding:MFPLAB Repository 01/01/2018 [id number] [facility] ding:LAB Repository 08/29/2017/08/30/19 [id number] Ambulatory BMSBuilding: [place] 18 [facility] Repository 08/22/2017 [id number] Ambulatory [facility] Repository 08/16/2017 [id number] Ambulatory BMSBuilding: [place] BMS.[facility] Repository 06/25/2017 [id number] Ambulatory [facility] ding:LAB Repository PAYERS PAYERS ENCOUNTER GUARANTOR PAYER SUBSCRIBER SOURCE 05/01/2018 RONAL Phan Primary Insurance:[facility] RONAL [id number] [facility] Alex RODRIGUEZ: [facility] Number: [id number], [place] [id number] Repository [address]Sps: ([phone]) Date:5705-52-65LL [phone] () [address], [place] [address]JK: 05/01/2018 Secondary NOT GIVENUNK [place] Insurance:SELF PAY [facility] Number: Effective Repository Date:2018-04-23 04/19/2018 RONAL Phan Primary RONAL Phan [facility] BUTTERBAUGHDOB: Insurance:[facility]: Health System HEALTHCARE MEDICARE [id number] [facility] ADARSH [facility] Number: [place], [place] [id number] [address]Gjk: ([phone]) Date: [address] () 04/02/2018 RONAL Emilie Primary Insurance:[facility] RONAL Phan [place] [id number] [facility] SOLUTIONSPolicy BUTTERBAUGHDOB: Community ADARSH Number: [id number], [place] [id number] Repository [address]Kxd: ([phone]) Date:8888-17-83FB [phone] () [address] [place] [address]XZ: 04/02/2018 Secondary NOT GIVENUNK [place] Insurance:SELF PAY [facility] Number: Effective Repository Date:2018-04-02 03/08/2018 RONAL Emilie Primary Insurance:[facility] RONAL Phan [place] [id number] [facility] SOLUTIONSPolicy BUTTERBAUGHDOB: Community ADARSH Number: [id number], [place] [id number] Repository [address]Lfq: ([phone]) Date:9982-21-54NS [phone] () [address]659DMKDHOUSTON, [place] [address]RH: 03/08/2018 Secondary NOT GIVENUNK [place] Insurance:SELF PAY [facility] Number: Effective Repository Date:2018-03-05 03/04/2018 RONAL Emilie Primary Insurance:[facility] RONAL Phan [place] [id number] [facility] SOLUTIONSPolicy BUTTERBAUGHDOB: Community ADARSH Number: [id number], [place] [id number] Repository [address]Wip: ([phone]) Date:6612-60-24SL [phone] (HP) [address] [place] [phone]: 03/04/2018 Secondary NOT GIVENUNK [place] Insurance:SELF PAY Community [facility] Number: Effective Repository Date:2018-03-04 01/01/2018 RONAL Phan Primary Insurance:[facility] RONAL Phan [place] [id number] [facility] SOLUTIONSPolicy BUTTERBAUGHDOB: Community ADARSH Number: [id number], [place] [id number] Repository [address]Imj: ([phone]) Date:1573-70-17EW [phone] (HP) [address] [place] [address]XX: 01/01/2018 Secondary NOT GIVENUNK [place] Insurance:SELF PAY [facility] Number: Effective Repository Date:2018-01-01 08/29/2017 RONAL Phan Primary Insurance:[facility] RONAL Phan [place] [id number] [facility] SOLUTIONSPolicy BUTTERBAUGHDOB: Community ADARSH Number: [id number] [id number] Repository [place] [address]Dxy: Date:7457-22-23KB [address] [place] [address] () [place] [address]AD: 08/29/2017 Secondary NOT GIVENUNK [place] Insurance:SELF PAY [facility] Number: Effective Repository Date:2017-08-29 08/22/2017 Ronal Phan Primary Insurance:[facility] Ronal Phan [place] [id number] [facility] SOLUTIONSPolicy ButterbaughDOB: Community Adarsh Number: [id number], [place] [id number] Repository [address]Xnw: ([phone]) Date:4950-90-25PR [phone] () [address] [place] [address]KT: 08/22/2017 Secondary NOT GIVENUNK [place] Insurance:SELF PAY [facility] Number: Effective Repository Date:2017-08-22 08/16/2017 Ronal Phan Primary Insurance:[facility] Ronal [id number] [facility] Alex RitchieZoraidaB: Community Adarsh Number: [id number], [place] [id number] Repository [address]Wkd: ([phone]) Date:5799-47-66ZT [phone] (HP) [address] [place] [phone]: 08/16/2017 Secondary NOT GIVENUNK [place] Insurance:SELF PAY Community [facility] Number: Effective Repository Date:2017-08-16 06/25/2017 Ronal Emilie Primary Insurance:[facility] Ronal Caceresbaugh1665 [facility] BRIPawanterrell CaceresNichol: Community Adarsh Number: [id number], [place] [id number] Repository [address]Bks: (330) Date:9641-21-43HG [phone] () [address] [place] [phone]: 06/25/2017 Secondary NOT GIVENUNK [place] Insurance:SELF PAY [facility] Number: Effective Repository Date:2017-06-25
== END ==
PROVIDERS: Family Provider Family Medicine; PCP Family Medicine; Referring Provider Urology; Visit Provider Urology
DX: R31.0 Gross hematuria (principal)
CPT/HCPCS: 74178; Q9967

== ENCOUNTER → 2018-07-11 12:17 | Outpatient (CLI) | payer MEDICARE, SELFPAY ==
[2018-04-02 13:29] VITALS: BMI 25.6
[2018-07-11 15:35] LABS: Absolute Lymphocyte Count 1.03 X10^3/ul (0.83-4.51); Absolute Neutrophil Count 4.5 X10^3/uL (2.0-7.7); Basophil# 0.03 X10^3/uL; Basophil% 0.5 % (0-1); Eosinophil# 0.18 X10^3/uL; Eosinophils% 2.8 % (0-5); Hematocrit 41.4 % (40-54); Hemoglobin 12.9 g/dl (13.0-16.5); Lymphocyte # 1.03 X10^3/ul (4.0); Lymphocyte % 16.1 % (19-41); Mean Corp Hgb Conc 31.2 g/gl (32-36); Mean Corpuscular Hgb 28.4 pg (27.0-32.0); Mean Platelet Vol. 9.8 fl (6.2-12.0); Monocyte# 0.62 X10^3/uL; Monocyte% 9.7 % (0-10); Neutrophil # 4.52 X10^3/uL (2.7-7.7); Neutrophil % 70.6 % (47-70); Platelet Count 347 K/mm3 (150-450); RBC Distribution Width CV 14.5 % (11.6-14.6); RBC Distribution Width SD 47.5 fl (35.1-43.9); Red Blood Count 4.55 M/mm3 (4.6-6.2); White Blood Count 6.4 K/mm3 (4.4-11.0)
[2018-07-11 15:38] LABS: POSITIVE COUNT NO; POSITIVE DIFFERENTIAL NO; POSITIVE MORPHOLOGY NO
[2018-07-11 15:57] LABS: Anion Gap 7 (5-15); BUN 13 mg/dL (7-18); BUN/Creat Ratio 17.3 RATIO (10-20); Chloride 108 mmol/L (98-107); Creatinine, Serum 0.75 mg/dL (0.70-1.30); EST Glomerular Filtration Rate 107 mL/min (>60); Est Glom Filt Rate - Afr Amer 129 mL/min (>60); Ferritin 385 ng/mL (26-388); Glucose 80 mg/dL (74-106); Magnesium 2.4 mg/dL (1.6-2.6); Potassium 4.4 mmol/L (3.5-5.1); Sodium Level 141 mmol/L (136-145)
== END ==
PROVIDERS: Family Provider Family Medicine; PCP Family Medicine; Referring Provider Family Medicine; Visit Provider Family Medicine
DX: R31.9 Hematuria, unspecified (principal); R26.89 Other abnormalities of gait and mobility
CPT/HCPCS: 36415; 80048; 82728; 83735; 85025

== ENCOUNTER → 2018-07-23 12:16 | Outpatient (CLI) | payer MEDICARE, SELFPAY ==
[2018-04-02 13:29] VITALS: BMI 25.6
--- NOTE | 2018-07-23 12:19 | CT_ITS ---
STUDY: CT BRAIN WITHOUT CONTRAST REASON FOR EXAM: Male, 78 years old. Imbalance RADIATION DOSAGE (If Supplied By Facility): CTDIvol = ( 60.81 ) mGy, DLP = ( 998.67 ) mGycm TECHNIQUE: Transaxial CT imaging of the brain was performed without administration of intravenous contrast material. Individualized dose optimization techniques were used for this CT. COMPARISON: No relevant priors. FINDINGS: Normal soft tissue structures. Normal calvarium. There is mild to moderate cerebral atrophy with widening of the extra-axial spaces and ventricular dilatation. There are areas of decreased attenuation within the white matter tracts of the supratentorial brain, consistent with microvascular disease changes. Normal basal ganglia and thalami. Normal brainstem. There is mild cerebellar atrophy. There is no intracranial hemorrhage. There are no findings of an acute ischemic infarction. Opacification of the left frontal sinus and right middle turbinate conchae bullosa. Left-sided nasal septum deviation with spur. The bilateral mastoid air cells are clear. Intracranial arteriosclerosis of the carotid and vertebral arteries. CT/Brain/Head without Contrast IMPRESSION: Chronic involutional changes of the brain. Chronic sinus inflammation. There is no acute intracranial pathology. Electronically Signed: Liz Griffith MD at 1:32 EDT , Service support ,
== END ==
PROVIDERS: Family Provider Family Medicine; PCP Family Medicine; Referring Provider Family Medicine; Visit Provider Family Medicine
DX: R26.89 Other abnormalities of gait and mobility (principal)
CPT/HCPCS: 70450

== ENCOUNTER → 2018-08-27 09:35 | Outpatient (CLI) | payer MEDICARE, SELFPAY ==
[2018-04-02 13:29] VITALS: BMI 25.6
[2018-08-27 11:17] LABS: PSA,Total- Diagnostic < 0.01 ng/mL (0.0-4.0)
== END ==
PROVIDERS: Family Provider Family Medicine; PCP Family Medicine; Referring Provider Urology; Visit Provider Urology
DX: C61 Malignant neoplasm of prostate (principal)
CPT/HCPCS: 36415; 84153

== ENCOUNTER → 2019-01-27 13:19 | Outpatient (CLI) | payer MEDICARE, SELFPAY ==
[2018-10-01 13:00] VITALS: BMI 25.4
--- NOTE | 2019-01-27 13:29 | CT_ITS ---
STUDY: CT MAXILLOFACIAL SINUSES REASON FOR EXAM: Male, 78 years old. Sinusitis RADIATION DOSAGE (If Supplied By Facility): CTDIvol = ( 33.45 ) mGy, DLP = ( 495.35 ) mGycm TECHNIQUE: The patient was scanned in a multi detector CT scanner. High resolution axial imaging was performed without the administration of intravenous contrast material. Sagittal and coronal images were reconstructed. Individualized dose optimization techniques were used for this CT. COMPARISON: July 23, 2018 CT head FINDINGS: FRONTAL SINUSES: There is improved aeration of the left frontal sinus when compared to prior study. It is nearly opacified. ETHMOIDAL SINUSES: There is trace ethmoid sinus mucosal thickening. MAXILLARY SINUSES: Normal aeration, without mucosal inflammatory disease. SPHENOIDAL SINUSES: Normal aeration, without mucosal inflammatory disease. There is patency of the bilateral maxillary infundibuli with normal uncinate processes, ethmoid bullae, and hiatus semilunaris. There is a right middle turbinate austin bullosa. Normal bilateral inferior turbinates. There is a left sided nasal septal deviation with a left sided nasal septal spur. There is mild narrowing of the left nasal canal. There is degenerative change in the visualized level of C1-C2. The visualized bilateral orbital contents are normal. There is atherosclerotic calcifications of the bilateral carotid arteries. CT/Sinus/Facial Bone IMPRESSION: Improved slight residual left frontal sinusitis. Minimal ethmoid sinusitis. Electronically Signed: Anahi Rosa MD at 14:04 EDT Tel , Service support ,
== END ==
PROVIDERS: Family Provider Family Medicine; PCP Family Medicine; Referring Provider Family Medicine; Visit Provider Family Medicine
DX: J32.9 Chronic sinusitis, unspecified (principal)
CPT/HCPCS: 70486

== ENCOUNTER → 2019-02-05 08:45 | Outpatient (CLI) | payer MEDICARE, SELFPAY ==
[2018-10-01 13:00] VITALS: BMI 25.4
[2019-02-05 10:14] LABS: Erythrocyte Sedimentation Rate 7 mm/hr (0-20)
[2019-02-05 10:22] LABS: CRP 3.67 mg/L (0.0-3.0)
[2019-02-06 16:08] LABS: Cytoplasmic Ab (C-ANCA) <1:20 titer (Neg:<1:20)
[2019-02-06 17:12] LABS: Perinuclear Ab (P-ANCA) <1:20 titer (Neg:<1:20)
[2019-02-06 17:13] LABS: ANTINUCLEAR ANTIBODIES DIRECT Negative (Negative)
== END ==
PROVIDERS: Family Provider Family Medicine; PCP Family Medicine; Referring Provider Family Medicine; Visit Provider Family Medicine
DX: J31.0 Chronic rhinitis (principal)
CPT/HCPCS: 36415; 85652; 86038; 86140; 86256

== ENCOUNTER → 2019-03-03 08:28 | Outpatient (CLI) | payer MEDICARE, SELFPAY ==
[2018-10-01 13:00] VITALS: BMI 25.4
[2019-03-03 09:24] LABS: PSA,Total- Diagnostic < 0.01 ng/mL (0.0-4.0)
== END ==
PROVIDERS: Family Provider Family Medicine; PCP Family Medicine; Referring Provider Urology; Visit Provider Urology
DX: C61 Malignant neoplasm of prostate (principal)
CPT/HCPCS: 36415; 84153

== ENCOUNTER 2019-03-17 13:44 | Inpatient (IN) | payer MEDICARE, SELFPAY ==
[2018-10-01 13:00] VITALS: BMI 25.4
[2019-03-17] VITALS (18 sets, daily range): BP systolic 114–141; BP diastolic 47–96; PULSE 69–129; RESP 15–26; TEMP 35.8–37; O2SAT 93–100; BMI 25.9; BMI 26.5; BMI 26.6
--- NOTE | 2019-03-17 14:14 | RAD_ITS ---
STUDY: X-RAY CHEST REASON FOR EXAM: Male, 78 years old. Weakness. TECHNIQUE: Single AP portable view of the chest. COMPARISON: None. FINDINGS: EKG electrodes are seen. The lungs are clear and expanded. There is no demonstrated pleural abnormality. There is mild cardiac enlargement. Normal mediastinum and pavithra. Normal visualized pulmonary arteries. There is atherosclerotic calcification of the aortic arch with tortuosity. Normal visualized thoracic spine. There is degenerative osteoarthritis of the bilateral shoulders. There is no demonstrated abnormality of the visualized soft tissue structures of the upper abdomen. RAD/Chest 1 View (Portable) IMPRESSION: Cardiomegaly. Electronically Signed: Lance Frazier, at 14:54 EST , Service support ,
--- NOTE | 2019-03-17 14:15 | EKG12_ITS ---
Test Reason : AM EKG Blood Pressure : / mmHG Vent. Rate : 087 BPM Atrial Rate : 208 BPM P-R Int : 000 ms QRS Dur : 096 ms QT Int : 402 ms P-R-T Axes : 000 026 162 degrees QTc Int : 483 ms Atrial fibrillation with premature ventricular or aberrantly conducted complexes Low voltage QRS ST & T wave abnormality, consider lateral ischemia Prolonged QT Abnormal ECG When compared with ECG of 17-MAR-2019 14:29, MANUAL COMPARISON REQUIRED, DATA IS UNCONFIRMED Confirmed by LUCY SILVA ([id number]), publishing editor KITTY FRIED ([id number]) on 03/23/2019 10:55:27 AM Referred By: Federico Holt Confirmed By:LUCY SILVA
--- NOTE | 2019-03-17 14:15 | CT_ITS ---
STUDY: CT ABDOMEN AND PELVIS WITH CONTRAST REASON FOR EXAM: Male, 78 years old. Abdominal pain and weakness. Black stool x1 month RADIATION DOSAGE (If Supplied By Facility): CTDIvol = ( 17.28 ) mGy, DLP = ( 1150.68 ) mGycm TECHNIQUE: Transaxial images were obtained from the dome of the diaphragm to the symphysis pubis with oral contrast. IV/Oral Isovue 370 100 was administered. Sagittal and coronal images were reconstructed. Individualized dose optimization techniques were used for this CT. COMPARISON: 05/01/2018 FINDINGS: The visualized lung bases are unremarkable. The visualized portions of the heart are within normal limits. Stable nonenhancing left liver lobe cyst. Several other smaller cysts. Otherwise, unremarkable liver Normal gallbladder and extrahepatic biliary system. Normal spleen. There is diffuse atrophy of the pancreas. Normal bilateral adrenal glands. Normal right kidney. Normal left kidney. Bilateral nonenhancing renal cysts, stable Normal visualized stomach. Normal small intestine. There are multiple colonic diverticula consistent with diverticulosis. The appendix is visualized and appears normal. There is diffuse atherosclerotic calcification of the abdominal aorta, without a demonstrated aneurysm. Normal inferior vena cava. Normal retroperitoneum. Normal urinary bladder. Numerous prostate seed Normal abdominal wall. There are diffuse degenerative changes of the visualized lumbar spine. CT/Abdomen/Pelvis WITH Contrast IMPRESSION: No acute findings. Chronic senescent changes as above. Multiple prostate seeds. Electronically Signed: Alex Chau DO at 16:50 EST Tel , Service support ,
[2019-03-17 14:38] LABS: Absolute Lymphocyte Count 0.67 X10^3/uL (0.83-4.51); Absolute Neutrophil Count 4.4 X10^3/uL (2.0-7.7); Basophil# 0.02 X10^3/uL; Basophil% 0.3 % (0-1); Eosinophil# 0.05 X10^3/uL; Eosinophils% 0.9 % (0-5); Hematocrit 15.9 % (40-54); Lymphocyte # 0.67 X10^3/ul (4.0); Lymphocyte % 11.6 % (19-41); Mean Corp Hgb Conc 28.3 g/dL (32-36); Mean Corpuscular Hgb 24.3 pg (27.0-32.0); Mean Corpuscular Volume 85.9 fL (80-94); Mean Platelet Vol. 10.5 fl (6.2-12.0); Monocyte# 0.59 X10^3/uL; Monocyte% 10.2 % (0-10); NRBC Flagged by Analyzer 0 % (0-5); Neutrophil # 4.42 X10^3/uL (2.7-7.7); Neutrophil % 76.5 % (47-70); POSITIVE COUNT YES; Platelet Count 205 K/mm3 (150-450); RBC Distribution Width CV 17.1 % (11.6-14.6); RBC Distribution Width SD 53.8 fl (35.1-43.9); Red Blood Count 1.85 M/mm3 (4.6-6.2); White Blood Count 5.8 K/mm3 (4.4-11.0)
[2019-03-17 14:41] LABS: International Normalized Ratio 1.3; Prothrombin Time (Protime)PT. 16.1 SECONDS (11.7-14.9)
--- NOTE | 2019-03-17 14:41 | ED.RN ---
hgb 4.[address] lab[address] dr mc aware
[2019-03-17 14:42] LABS: Hemoglobin 4.5 g/dL (13.0-16.5); Partial Thromboplast Time 28.1 Seconds (24.1-36.2)
[2019-03-17 14:52] LABS: ALB/GLOB Ratio 1.2 RATIO (0.9-2.4); AST(SGOT) 14 U/L (15-37); Alanine Aminotransfer ALT/SGPT 10 U/L (16-61); Albumin, Serum 3.2 g/dL (3.2-5.0); Alkaline Phosphatase 64 U/L (45-117); Anion Gap 9 (5-15); BUN 19 mg/dL (7-18); BUN/Creat Ratio 22.5 RATIO (10-20); Calcium,Total 8.3 mg/dL (8.5-10.1); Chloride 113 mmol/L (98-107); Creatinine, Serum 0.84 mg/dL (0.70-1.30); EST Glomerular Filtration Rate 93 mL/min (>60); Est Glom Filt Rate - Afr Amer 112 mL/min (>60); Estimated Creatinine Clearance 79.27 ml/min; Globulin 2.6 g/dL (2.2-4.2); Glucose 137 mg/dL (74-106); Lipase 420 U/L (73-393); Protein, Total 5.8 g/dL (6.4-8.2); Sodium Level 142 mmol/L (136-145)
[2019-03-17 15:05] LABS: Lactic Acid 2.8 mmol/L (0.4-2.0)
--- NOTE | 2019-03-17 15:08 | ED.DCSUM_ITS ---
- ER Visit Summary Date of Service: 03/17/19 Chief Complaint: Abdominal pain History of Present Illness: The patient is a 78 M presenting with abdominal pain for the past week. He has had intermittent pain that he states doubles him over. He has had dizziness with no syncope. He has had black stool which he states has been ongoing for several months. He denies diarrhea. He has shortness of breath with exertion. He denies chest pain. Denies fever or chills. He is on Xarelto. Physical Examination: Vitals are stable. Patient is afebrile. Alert no acute distress. HEENT exam pale conjunctiva Neck is supple. Lungs are clear and equal bilaterally. Heart is irregularly irregular Abdomen is soft left lower quadrant tenderness with no guarding or rebound Extremities are unremarkable. Skin is warm and dry. Pallor No focal neurologic deficit. Remainder of exam is unremarkable. Emergency Department Course and Treatment: EKG is A. fib rate of 102 with no acute ischemic changes. Chest x-ray shows cardiomegaly. CBC shows hemoglobin 4.5. Chemistries show BUN 19, glucose 137. INR 1.3. Lactic acid 2.8. Stool is guaiac positive. He was typed and crossed for 2 units packed red blood cells in the ED. CT abdomen pelvis shows no acute findings. Chronic senescent changes. Multiple prostate seeds. He was given Protonix IV. Discussed with Dr. Howard and hospitalist for admission. Disposition: Admission Impression: GI bleed, anemia This note was generated with [employer] dictation software. It may contain incorrect words, spelling, and punctuation that were not noted in review of the chart prior to signing ED Disposition - Plan for ED Patient: Referrals: Garett Castaneda MD [Primary Care Provider] -
[2019-03-17 16:56] LABS: Bacteria 0 SEEN /hpf (None Seen); Mucous, Urine 0 SEEN /hpf (<or=2+); Red Blood Cells-Urine 0 SEEN /hpf (0-5); Squamous Epithelial Cells - UA 0 SEEN /hpf (0-5); White Blood Cells 0 SEEN /hpf (0-5)
[2019-03-17 16:58] LABS: Color, Urine Yellow (Yellow); Glucose, Dipstick Normal (Normal); Ketone-Dipstick Negative (Negative); Leukocyte Esterase-Dipstick Negative /ul (Negative); Nitrite-Dipstick Negative (Negative); Occult Blood-Urine Negative /ul (Negative); Protein-Dipstick 15 mg/dl (Negative); Urine Bilirubin Dipstick Negative (Negative); Urine Clarity Clear (Clear); Urine Urobilinogen Normal (Normal)
--- NOTE | 2019-03-17 17:52 | CON.PCM_ITS ---
Reason for Consult Date of Consultation: 03/17/19 History of Present Illness: The patient is a 78 year old M states that he has had black stools for about 6 months. Patient has been on Xarelto for A. fib. He has not taken it for the past 2 days. About a week ago patient started to have epigastric pain that would go into his lower abdomen but once he would lay down it would resolve patient rated the pain at a 10+/10 he would also get some chills with this. Patient has had decreased appetite for about the past week. Labs in the ER did show a hemoglobin of 4.5. Patient states he had a colonoscopy and EGD 8 to [address] Mares states that he did not find anything. Patient denies taking NSAIDs or having burning up his esophagus but his does state he has had some epigastric pain prior to the week ago which was not as bad. Patient is getting Protonix IV bolus as well as transferred 4 units of packed red blood cells. 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9 Raynauds syndrome (Chronic) I73.00 Atrial fibrillation (Chronic) I48.91 Rheumatoid arthritis (Chronic) M06.9 Allergies rofecoxib [From Vioxx] Adverse Reaction (Severe, Verified 03/17/19 13:46) Mouth sores tetanus immune globulin Adverse Reaction (Severe, Verified 03/17/19 13:46) Hypotension, diaphresis Home Medications: Ambulatory Orders Medication Instructions Recorded Leflunomide [Arava] 20 mg PO DAILY 05/24/16 Rivaroxaban [Xarelto] 20 mg PO DAILY 05/24/16 Acetaminophen [Tylenol Arthritis] 650 mg PO DAILY PRN PRN 03/17/19 Amlodipine Besylate 5 mg PO DAILY 03/17/19 Prednisone 5 - 10 mg PO DAILY PRN PRN 03/17/19 Surgical History: Surgical History (Last Updated 03/17/19 @ 17:47 by Federico Holt MD) H/O repair of rotator cuff Z98.890 History of knee replacement (Inactive) Z96.659 Hx of hernia repair (Inactive) Z98.890, Z87.19 Surgical History: - - rheumatoid arthritis, atrial fibrillation Smoking Status: Never smoker - Physical Exam Vitals/I&O's: Vital Signs Temp Pulse Resp BP Pulse Ox 96.4 F L 98 18 119/59 L 100 03/17/19 13:48 03/17/19 17:00 03/17/19 17:00 03/17/19 17:00 03/17/19 17:00 Oxygen Flow Rate (L/min) 2 Oxygen Delivery Method Nasal Cannula Weight: 197 lb 1.492 oz Body Mass Index (BMI) 25.9 Intake and Output for Last 24 Hours 03/15/19 03/16/19 03/17/19 23:59 23:59 23:59 Intake Total 500 / 500 Balance 500 / 500 General: Alert, Oriented x3, Cooperative, - - Pale HEENT: Atraumatic Lungs: Normal air movement Abdomen: Soft, Non-Distended, Tender - No tenderness in the left lower quadrant, no rebound or guarding Extremities: No clubbing, No cyanosis, No edema Neurological: Cranial nerves II-XII grossly intact Psych/Mental Status: Normal Affect Microbiology Past 72 Hours 03/17/19 14:20 Stool Stool Occult Blood (SABINO) - Final Occult Blood Positive Laboratory Results 03/17/19 13:58: WBC 5.8, RBC 1.85 L, Hgb 4.5 L*, Hct 15.9 L, MCV 85.9, MCH 24.3 L, MCHC 28.3 L, RDW Std Deviation 53.8 H, RDW Coeff of [place] 17.1 H, Plt Count 205, MPV 10.5, Immature Gran % (Auto) 0.500, Neut % (Auto) 76.5 H, Lymph % (Auto) 11.6 L, [place] % (Auto) 10.2 H, Eos % (Auto) 0.9, Baso % (Auto) 0.3, Absolute Neuts (auto) 4.4, Absolute Lymphs (auto) 0.67 L, Nucleated RBC % 0, Diff Path Review August03/17/19 13:58: PT 16.1 H, INR 1.3, APTT 28.1 03/17/19 13:58: Sodium 142, Potassium 4.0, Chloride 113 H, Carbon Dioxide 20.0 L , Anion Gap 9, BUN 19 H, Creatinine 0.84, Estim Creat Clear Calc 79.27, Est GFR (MDRD) Af Amer 112, Est GFR (MDRD) Non-Af 93, BUN/Creatinine Ratio 22.5 H, Glucose 137 H, Calcium 8.3 L, Total Bilirubin 0.60, AST 14 L, ALT 10 L, Alkaline Phosphatase 64, Troponin I 0.022, Total Protein 5.8 L, Albumin 3.2, Globulin 2.6, Albumin/Globulin Ratio 1.2, Lipase 420 H 03/17/19 13:58: Blood Type A POSITIVE, Antibody Screen NEGATIVE, Crossmatch See Detail 03/17/19 14:33: Lactic Acid 2.8 H 03/17/19 16:50: Urine Color Yellow, Urine Clarity Clear, Urine pH 5.0, Ur Specific [place] 1.010, Urine Protein 15 H, Urine Glucose (UA) Normal, Urine Ketones Negative, Urine Occult Blood Negative, Urine Nitrite Negative, Urine Bilirubin Negative, Urine Urobilinogen Normal, Ur Leukocyte Esterase Negative, Urine RBC 0 SEEN, Urine WBC 0 SEEN, Ur Squamous Epith Cells 0 SEEN, Urine Bacteria 0 SEEN, Urine Mucus 0 SEEN Assessment/Plan 78 y/o M with anemia, melena, epigastric pain Pt will be getting 4 units PRBC, protonix IV bolus, he has held the xarelto for last 2 days will continue to hold. I have discussed the above with the patient. I have offered the patient EGD for evaluation--we will plan for an EGD about 130 tomorrow unless patient's signs change then will do sooner.. if no obvious cause found will plan for colonoscopy the following day I have explained the risks/benefits of the procedure and described the procedure. I have discussed the risks with the patient, including but not limited to: infection, bleeding, perforation of the GI tract requiring emergency surgery, inability to complete the procedure, injury to any internal organs, complications of anesthesia, etc. - the patient understands and agrees to proceed. I have answered all the patient's questions to the patient's satisfaction and the patient has no further questions. Sobeida Howard M.D. Pager: [phone] [facility] [address] [place] [address] [address] [place] [address] Office: [phone]
--- NOTE | 2019-03-17 18:08 | HP.PCM_ITS ---
Problem List (1) Hypertension Status: Chronic Qualifiers: Hypertension type: essential hypertension Qualified Code(s): I10 - Essential (primary) hypertension (2) Hyperlipidemia Status: Chronic (3) Peripheral vascular disease Status: Chronic (4) Atrial fibrillation Status: Chronic Qualifiers: Atrial fibrillation type: chronic (5) Rheumatoid arthritis Status: Chronic History of Present Illness Date of Admission: 03/17/19 Chief Complaint: Abdominal pain. The patient is a 78 year old M patient with past medical history as mentioned above presented to the emergency room because of abdominal pain. Her symptoms started around 1 week ago with abdominal pain, epigastric/mid abdominal in location, sharp pain, intermittent, 10 out of 10 severity, extends down to the lower abdominal region, associated with nausea without vomiting and without aggravating or relieving factors. He did reported significant amount of very dark black stool which has been going on for several weeks. Also, patient co mplained of being very weak, tired and significant dizziness upon standing or walking. He reported mild shortness of breath which was exertional as well for the last 3 to 4 days. Patient's mentioned that he has been having this abdominal pain for the last couple of months but he was trying to ignore it. In the last couple of weeks, the pain got worse and even more worse over the last week. Patient mentioned that he has been taking Tylenol for joint pain but denied taking Advil or Aleve on long-term basis. He does take prednisone as needed for couple of days for rheumatoid arthritis according to the patient and on average, he takes prednisone each 10 days and last time he took prednisone was a week ago. He denied hematochezia, hemoptysis, hematemesis or epistaxis. He does take Xarelto for history of chronic atrial fibrillation. In the emergency department, he was slightly tachycardic, heart rate has been around 90s, other vital signs were stable. Routine blood work was remarkable for hemoglobin of 4.5 g/dL, otherwise normal. Lactic acid was 2.8. LFT was unremarkable. Lipase was slightly elevated at 420. EKG revealed atrial fibrillation, PVCs, no acute ischemic changes. Chest x-ray showed mild cardiomegaly, no acute findings. CT scan abdomen and pelvis with contrast revealed no acute findings, revealed diffuse atrophy of the pancreas. Patient is being admitted for acute microcytic symptomatically anemia due to GI bleed probably upper GI bleed. 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9 Raynauds syndrome (Chronic) I73.00 Atrial fibrillation (Chronic) I48.91 Rheumatoid arthritis (Chronic) M06.9 Allergies rofecoxib [From Vioxx] Adverse Reaction (Severe, Verified 03/17/19 13:46) Mouth sores tetanus immune globulin Adverse Reaction (Severe, Verified 03/17/19 13:46) Hypotension, diaphresis Home Medications: Ambulatory Orders Medication Instructions Recorded Leflunomide [Arava] 20 mg PO DAILY 05/24/16 Rivaroxaban [Xarelto] 20 mg PO DAILY 05/24/16 Acetaminophen [Tylenol Arthritis] 650 mg PO DAILY PRN PRN 03/17/19 Amlodipine Besylate 5 mg PO DAILY 03/17/19 Prednisone 5 - 10 mg PO DAILY PRN PRN 03/17/19 Surgical History: Surgical History (Last Updated 03/17/19 @ 17:47 by Federico Holt MD) H/O repair of rotator cuff Z98.890 History of knee replacement (Inactive) Z96.659 Hx of hernia repair (Inactive) Z98.890, Z87.19 Surgical History: herniorrhaphy, total knee arthroplasty, - Psychiatric History: No pertinent psych hx Lives: Spouse/ Significant Other Smoking Status: Never smoker Alcohol: None Drugs: None - *Family History Maternal Family History: Family History (Last Reviewed 04/02/18 @ 13:56 by Marcos Ruffin MD) Sister Hypertension Father Cancer Mother No problems noted. History Items: No pertinent history Paternal Family History: Family History (Last Reviewed 04/02/18 @ 13:56 by Marcos Ruffin MD) Sister Hypertension Father Cancer Mother No problems noted. History Items: No pertinent history Review of Systems Constitutional: Reports: Anorexia, Weakness, Fatigue. Denies: Chills, Fever Eyes: Denies: Blurred vision, Double vision, Drainage, Redness HEENT: Denies: Difficulty Hearing, Ear Pain, Eye Pain, Nasal Congestion, Sore Throat Cardiovascular: Reports: Light Headedness. Denies: Chest Pain, Chest Pressure, Chest Tightness, Edema, Palpitations, Paroxysmal Noc. Dyspnea, Syncope Respiratory: Reports: Shortness of Breath. Denies: Cough, Pleuritic Pain, Sputum production, Wheezing Gastrointestinal: Reports: Abdominal Pain, Melena. Denies: Constipation, Diarrhea, Nausea, Vomiting Genitourinary: Denies: Dysuria, Frequency, Hematuria Musculoskeletal: Denies: Arm Pain, Back Pain, Foot Pain Skin: Denies: Dryness, Rash Neurological: Denies: Balance problems, Double vision, Change in Speech, Slurred speech, Confusion, Focal weakness, Headaches, Incoordination, Numbness Psychiatric: Denies: Anxiety, Depression Endocrine: Denies: Change in Body Habitus, Polydipsia, Polyuria VTE Information - Inpt Only VTE Present on Admission: No VTE Mechan Device Prophylaxis: SCD's VTE Pharm Prophylaxis ordered?: No - Physical Exam Vitals/I&O's: Vital Signs Temp Pulse Resp BP Pulse Ox 98.6 F 94 15 122/92 H 100 03/17/19 18:00 03/17/19 18:00 03/17/19 18:00 03/17/19 18:00 03/17/19 18:00 Oxygen Flow Rate (L/min) 2 Oxygen Delivery Method Nasal Cannula Weight: 197 lb 1.492 oz Body Mass Index (BMI) 25.9 Intake and Output for Last 24 Hours 03/15/19 03/16/19 03/17/19 23:59 23:59 23:59 Intake Total 535 / 535 Balance 535 / 535 General: Alert, Oriented x3, Cooperative, No apparent distress, - - pale. HEENT: Atraumatic, PERRLA, EOMI, Normocephalic Oral: Moist Mucosa, No Gingival or Mucosal Lesions/ Ulcerations Neck: Supple, No JVD, Negative Carotid Bruits, Trachea Midline, Thyroid Normal Size and Texture Lungs: Clear to auscultation, Normal air movement, No rhonchi, No wheeze, No rales, Diminished Cardiovascular: Normal S1, Normal S2, No murmurs, PMI Normal, Irregular Rate Abdomen: Bowel Sounds Present, Soft, Non Tender, Non-Distended, No Hepato- splenomegaly Extremities: No clubbing, No cyanosis, No edema Skin: No rashes, No breakdown Lymphatic: No Cervical, Supraclavicular, or Inguinal Adenopathy Neurological: Cranial nerves II-XII grossly intact, Motor Exam 5/5 strength throughout Psych/Mental Status: Normal Affect, Appropriate, Alert and oriented to time, place, person, mood and affect Microbiology Past 72 Hours 03/17/19 14:20 Stool Stool Occult Blood (SABINO) - Final Occult Blood Positive Laboratory Results 03/17/19 13:58: WBC 5.8, RBC 1.85 L, Hgb 4.5 L*, Hct 15.9 L, MCV 85.9, MCH 24.3 L, MCHC 28.3 L, RDW Std Deviation 53.8 H, RDW Coeff of [place] 17.1 H, Plt Count 205, MPV 10.5, Immature Gran % (Auto) 0.500, Neut % (Auto) 76.5 H, Lymph % (Auto) 11.6 L, [place] % (Auto) 10.2 H, Eos % (Auto) 0.9, Baso % (Auto) 0.3, Absolute Neuts (auto) 4.4, Absolute Lymphs (auto) 0.67 L, Nucleated RBC % 0, Diff Path Review August03/17/19 13:58: PT 16.1 H, INR 1.3, APTT 28.1 03/17/19 13:58: Sodium 142, Potassium 4.0, Chloride 113 H, Carbon Dioxide 20.0 L , Anion Gap 9, BUN 19 H, Creatinine 0.84, Estim Creat Clear Calc 79.27, Est GFR (MDRD) Af Amer 112, Est GFR (MDRD) Non-Af 93, BUN/Creatinine Ratio 22.5 H, Glucose 137 H, Calcium 8.3 L, Total Bilirubin 0.60, AST 14 L, ALT 10 L, Alkaline Phosphatase 64, Troponin I 0.022, Total Protein 5.8 L, Albumin 3.2, Globulin 2.6, Albumin/Globulin Ratio 1.2, Lipase 420 H 03/17/19 13:58: Blood Type A POSITIVE, Antibody Screen NEGATIVE, Crossmatch See Detail 03/17/19 14:33: Lactic Acid 2.8 H 03/17/19 16:50: Urine Color Yellow, Urine Clarity Clear, Urine pH 5.0, Ur Specific [place] 1.010, Urine Protein 15 H, Urine Glucose (UA) Normal, Urine Ketones Negative, Urine Occult Blood Negative, Urine Nitrite Negative, Urine Bilirubin Negative, Urine Urobilinogen Normal, Ur Leukocyte Esterase Negative, Urine RBC 0 SEEN, Urine WBC 0 SEEN, Ur Squamous Epith Cells 0 SEEN, Urine Bacteria 0 SEEN, Urine Mucus 0 SEEN Clinical Impression(s) from Imaging Studies Chest X-Ray 03/17/19 14:14 IMPRESSION: Cardiomegaly. Electronically Signed: Lance Frazier, at 14:54 EST , Service support , Abdomen/Pelvis CT 03/17/19 14:15 IMPRESSION: No acute findings. Chronic senescent changes as above. Multiple prostate seeds. Electronically Signed: Alex Chau DO at 16:50 EST Tel , Service support , Assessment/Plan This is an 78 years old male patient presented to the emergency room because of abdominal pain, melena, dizziness, weakness and shortness of breath and was found to have acute symptomatic anemia which is probably due to GI bleed and is being admitted for evaluation and treatment. #1 acute microcytic blood loss anemia: Probably due to upper GI bleed. Differential diagnoses gastritis versus peptic ulcer disease. Patient has been using prednisone as needed for couple of days every 10 days for rheumatoid arthritis and he has been doing this for many years. He denies use of NSAIDs. Plan: Admit to PCU, cardiac nurse practitioner, keep on n.p.o., IV fluids, start IV Protonix drip, transfuse 4 units of packed RBCs, H&H every 8 hours x3, repeat CBC and BMP tomorrow morning, general surgery consult for upper EGD and may be colonoscopy, hold Xarelto for now. #2 chronic atrial fibrillation: Heart rate has been around 90-100, blood pr essure stable. He is not on any medication for rate control. Plan to hold Xarelto for now. #3 rheumatoid arthritis: Stable, no joint pain, continue leflunomide and Tylenol PRN. #4 hypertension: Blood pressure stable, continue Norvasc. #5 peripheral vascular disease: Stable, patient has been on Xarelto which would be on hold at this time. #6 history of prostate cancer: Status post radiation implants, stable in remission. #7 DVT prophylaxis: SCDs. This note was generated with [employer] dictation software. It may contain incorrect words, spelling, and punctuation that were not noted in checking the note before signing. Code Visit Inpatient E&M: 29867 Init Hosp L3
[2019-03-17 18:36] LABS: Reflex Lactate? Y
[2019-03-17 20:00] LABS: Lactic Acid 1.3 mmol/L (0.4-2.0)
[2019-03-17 20:08] LABS: Ferritin 9 ng/mL (26-388); Iron 20 ug/dL (65-175); Iron Binding Capacity,Total 389 ug/dL (250-450); PERCENT IRON SATURATION 5.1 % (15.0-55.0)
--- NOTE | 2019-03-17 22:15 | NURSING ---
Blood was verified, when hung blood fell off hook and spilled onto floor. Transfusion never began.
[2019-03-18] VITALS (34 sets, daily range): BP systolic 94–151; BP diastolic 54–109; PULSE 67–122; RESP 16–31; TEMP 36.4–37.3; O2SAT 93–99; BMI 26.5
--- NOTE | 2019-03-18 05:55 | EKG12_ITS ---
Test Reason : ILLNESS Blood Pressure : / mmHG Vent. Rate : 102 BPM Atrial Rate : 107 BPM P-R Int : 000 ms QRS Dur : 096 ms QT Int : 368 ms P-R-T Axes : 000 008 075 degrees QTc Int : 479 ms Atrial fibrillation with rapid ventricular response with premature ventricular or aberrantly conducte d complexes Nonspecific ST and T wave abnormality Abnormal ECG Confirmed by DIEGO COBIAN, IGGY ([id number]), order editor CLOVER VALADEZ ([id number]) on 03/19/2019 12:55:43 PM Referred By: Federico Holt Confirmed By:IGGY CORTEZ MD
--- NOTE | 2019-03-18 06:56 | PN_ITS ---
Subjective: Patient with no acute events since admission with 4 unit PRBC administration and follow-up hemoglobin 8.2. Patient notes some generalized upper epigastric discomfort but not severe and not worsened with palpation. He notes feeling improved since initial presentation, less short of breath. He states over the last several months he has had a black stools as well as dyspnea and nearly inability to complete any task secondary to severity of dyspnea and fatigue. Reviewed plan for upper endoscopy this afternoon with understanding that if there is no obvious source plan would be for colonoscopy the following day following prep. Patient denies fevers, chills, nausea, emesis, chest pain. Objective: Physical Examination: General: awake, alert, oriented x 3 and cooperative, seated upright in the PCU bed, pale and fatigued appearance. Skin: Pale color, turgor, no icterus, cyanosis. HEENT: AT/NC, EOMI, PERRLA, mildly dry MM. Lungs: Diminished breath sounds bilaterally, greater bilateral bases, mild effort, no rales, ronchi or wheezing. Heart: Improved, regular rate, irregular rhythm; no gallop, rub audible. Abdomen: soft, overweight, notes ongoing epigastric mild discomfort but does not worsen with palpation cannot reproduce with palpation, ND, mildly hyperactive BS. Extremities: no cyanosis, clubbing, or edema. Neurological: patient awake, alert, oriented x 3; cognitive function intact; pupils equally reactive to light and accomodation; cranial nerves II-XII grossly normal, moving all 4 extremities, no focal deficits, strength severely global decrease secondary to acute presentation. Psychiatric: affect appears fatigued, flat, no acute evidence of depressive or anxiety feelings. Vitals/I&O's: Vital Signs Temp Pulse Resp BP Pulse Ox 97.5 F L 86 18 120/60 98 03/18/19 06:35 03/18/19 06:35 03/18/19 06:35 03/18/19 06:35 03/18/19 06:35 Oxygen Flow Rate (L/min) 2 Oxygen Delivery Method Room Air Weight: 195 lb 12.328 oz Body Mass Index (BMI) 26.5 Intake and Output for Last 24 Hours 03/16/19 03/17/19 03/18/19 23:59 23:59 23:59 Intake Total 935 / 935 900 / 900 Output Total 440 / 440 250 / 250 Balance 495 / 495 650 / 650 Microbiology Past 72 Hours 12/02/19 14:20 Stool Stool Occult Blood (SABINO) - Final Occult Blood Positive Laboratory Results 03/17/19 13:58: WBC 5.8, RBC 1.85 L, Hgb 4.5 L*, Hct 15.9 L, MCV 85.9, MCH 24.3 L, MCHC 28.3 L, RDW Std Deviation 53.8 H, RDW Coeff of Mariana 17.1 H, Plt Count 205, MPV 10.5, Immature Gran % (Auto) 0.500, Neut % (Auto) 76.5 H, Lymph % (Auto) 11.6 L, Roberts % (Auto) 10.2 H, Eos % (Auto) 0.9, Baso % (Auto) 0.3, Absolute Neuts (auto) 4.4, Absolute Lymphs (auto) 0.67 L, Nucleated RBC % 0, Diff Path Review August03/17/19 13:58: PT 16.1 H, INR 1.3, APTT 28.1 03/17/19 13:58: Sodium 142, Potassium 4.0, Chloride 113 H, Carbon Dioxide 20.0 L , Anion Gap 9, BUN 19 H, Creatinine 0.84, Estim Creat Clear Calc 79.27, Est GFR (MDRD) Af Amer 112, Est GFR (MDRD) Non-Af 93, BUN/Creatinine Ratio 22.5 H, Glucose 137 H, Calcium 8.3 L, Total Bilirubin 0.60, AST 14 L, ALT 10 L, Alkaline Phosphatase 64, Troponin I 0.022, Total Protein 5.8 L, Albumin 3.2, Globulin 2.6, Albumin/Globulin Ratio 1.2, Lipase 420 H 03/17/19 13:58: Blood Type A POSITIVE, Antibody Screen NEGATIVE, Crossmatch See Detail 03/17/19 13:58: Iron 20 L, TIBC 389, Iron Saturation 5.1 L, Ferritin 9 L 03/17/19 13:58: Crossmatch See Detail 03/17/19 13:58: Crossmatch See Detail 03/17/19 14:33: Lactic Acid 2.8 H 03/17/19 16:50: Urine Color Yellow, Urine Clarity Clear, Urine pH 5.0, Ur Specific [place] 1.010, Urine Protein 15 H, Urine Glucose (UA) Normal, Urine Ketones Negative, Urine Occult Blood Negative, Urine Nitrite Negative, Urine Bilirubin Negative, Urine Urobilinogen Normal, Ur Leukocyte Esterase Negative, Urine RBC 0 SEEN, Urine WBC 0 SEEN, Ur Squamous Epith Cells 0 SEEN, Urine Bacteria 0 SEEN, Urine Mucus 0 SEEN 03/17/19 19:11: Lactic Acid 1.3 Current Medications Acetaminophen (Tylenol) 650 mg PO Q6H PRN PRN PRN Reason: Pain Score 1-3/Temp > 100.7 F Amlodipine Besylate (Norvasc) 5 mg PO DAILY [facility] Sodium Chloride () 1,000 mls @ 100 mls/hr IV .Q10H SHIREEN Pantoprazole Sodium 80 mg/ (Sodium Chloride) 100 mls @ 10 mls/hr CONT INF Q10H [facility] Last Admin: 03/18/19 03:55 Dose: 10 mls/hr Documented by: Morphine Sulfate () 1 mg IV Q4H PRN PRN PRN Reason: Pain Score 6-10/10 Non-Formulary Medication (Leflunomide [Arava]) 20 mg PO DAILY [facility] Ondansetron HCl (Zofran) 4 mg IV Q8H PRN PRN PRN Reason: NAUSEA/VOMITING Sodium Chloride () 10 - 40 ml IV UD PRN PRN Reason: SALINE FLUSH STROKE Vital Signs/Narrative: Vital Signs Temp Pulse Resp BP Pulse Ox 03/18/19 06:35 97.5 F L 86 18 120/60 98 03/18/19 05:35 97.6 F L 70 16 133/70 H 98 03/18/19 05:20 97.8 F 85 18 125/60 H 97 03/18/19 04:50 97.7 F L 77 18 134/109 H 97 03/18/19 03:50 97.6 F L 78 18 116/67 96 03/18/19 02:59 96 Medical Necessity - Tobacco Use Smoking Status: Never smoker Assessment/Plan The patient is an 78 y/o M w/ PMHx: CAF on Xarelto, Cardiomyopathy unclear type, PVD, RA, Raynaud's Syndrome, HTN, HLD who presents to the [facility] ED on 03/18/19 with history of 1 week of ongoing sharp epigastric and midabdominal abdominal pain, intermittent, 10 out of 10 in severity with extension to the lower abdomen with associated nausea without emesis with dark black stools preceding this for several weeks. 1. Acute GI Bleed w/ resultant Acute Blood Loss Anemia: Patient w/ dark black stools and ongoing abdominal pain, CT A/P without acute findings, + guiac, admission Hgb 4.5, given stable VS admitted to PCU, maintained on IVFs, coags not marked but on xarelto for atrial fibrillation held x 2 days prior to presentation, administered 4 u PRBC, repeat Hgb this AM following PRBC 8.2, maintain on IV PPI, surgery evaluation with planned EGD this afternoon and possible c-scope if unremarkable. 2. Chronic atrial fibrillation: Holding xarelto given presentation, not on rate of rhythm agent. 3. Rheumatoid Arthritis: Continue leflunomide and PRN pain agents. Hold steroids given acute presentation. 4. Hypertension: Continue home regimen including amlodipine with hold parameters, PRN hydralazine. 5. Cardiomyopathy, unclear type: Holding Xarelto as noted, not on beta-george, JEISON inhibitor or ARB. 6. PVD: Holding Xarelto as noted, not on statin, continue hypertensive regimen. 7. History of prostate cancer: Status post radiation with seed implants, stable, remission. 8. Hyperlipidemia: Not on statin, defer. 9. DVT prophylaxis: SCDs, holding Xarelto as noted given acute presentation #1. Code Visit Inpatient E&M: 06015 [facility] Hosp L3
--- NOTE | 2019-03-18 08:32 | PCM.PN.SRG ---
Subjective: Patient has gotten previous packed red blood cells and will recheck hemoglobin an hour after, patient denies any abdominal pain currently - Physical Exam Vitals/I&O's: Vital Signs Temp Pulse Resp BP Pulse Ox 97.5 F L 67 16 123/68 H 97 03/18/19 07:49 03/18/19 07:49 03/18/19 07:49 03/18/19 07:49 03/18/19 07:49 Oxygen Flow Rate (L/min) 2 Oxygen Delivery Method Room Air Weight: 195 lb 12.328 oz Body Mass Index (BMI) 26.5 Intake and Output for Last 24 Hours 03/16/19 03/17/19 03/18/19 23:59 23:59 23:59 Intake Total 935 / 935 900 / 900 Output Total 440 / 440 250 / 250 Balance 495 / 495 650 / 650 General: Alert, Oriented x3, Cooperative, No apparent distress HEENT: Atraumatic Lungs: Normal air movement Abdomen: Soft, Non Tender, Non-Distended Extremities: No clubbing, No cyanosis, No edema Psych/Mental Status: Normal Affect Microbiology Past 72 Hours 03/17/19 14:20 Stool Stool Occult Blood (SABINO) - Final Occult Blood Positive Laboratory Results 03/17/19 13:58: WBC 5.8, RBC 1.85 L, Hgb 4.5 L*, Hct 15.9 L, MCV 85.9, MCH 24.3 L, MCHC 28.3 L, RDW Std Deviation 53.8 H, RDW Coeff of Mariana 17.1 H, Plt Count 205, MPV 10.5, Immature Gran % (Auto) 0.500, Neut % (Auto) 76.5 H, Lymph % (Auto) 11.6 L, Carroll % (Auto) 10.2 H, Eos % (Auto) 0.9, Baso % (Auto) 0.3, Absolute Neuts (auto) 4.4, Absolute Lymphs (auto) 0.67 L, Nucleated RBC % 0, Diff Path Review August03/17/19 13:58: PT 16.1 H, INR 1.3, APTT 28.1 03/17/19 13:58: Sodium 142, Potassium 4.0, Chloride 113 H, Carbon Dioxide 20.0 L, Anion Gap 9, BUN 19 H, Creatinine 0.84, Estim Creat Clear Calc 79.27, Est GFR (MDRD) Af Amer 112, Est GFR (MDRD) Non-Af 93, BUN/Creatinine Ratio 22.5 H, Glucose 137 H, Calcium 8.3 L, Total Bilirubin 0.60, AST 14 L, ALT 10 L, Alkaline Phosphatase 64, Troponin I 0.022, Total Protein 5.8 L, Albumin 3.2, Globulin 2.6, Albumin/Globulin Ratio 1.2, Lipase 420 H 03/17/19 13:58: Blood Type A POSITIVE, Antibody Screen NEGATIVE, Crossmatch See Detail 03/17/19 13:58: Iron 20 L, TIBC 389, Iron Saturation 5.1 L, Ferritin 9 L 03/17/19 13:58: Crossmatch See Detail 03/17/19 13:58: Crossmatch See Detail 03/17/19 14:33: Lactic Acid 2.8 H 03/17/19 16:50: Urine Color Yellow, Urine Clarity Clear, Urine pH 5.0, Ur Specific [place] 1.010, Urine Protein 15 H, Urine Glucose (UA) Normal, Urine Ketones Negative, Urine Occult Blood Negative, Urine Nitrite Negative, Urine Bilirubin Negative, Urine Urobilinogen Normal, Ur Leukocyte Esterase Negative, Urine RBC 0 SEEN, Urine WBC 0 SEEN, Ur Squamous Epith Cells 0 SEEN, Urine Bacteria 0 SEEN, Urine Mucus 0 SEEN 03/17/19 19:11: Lactic Acid 1.3 Current Medications Acetaminophen (Tylenol) 650 mg PO Q6H PRN PRN PRN Reason: Pain Score 1-3/Temp > 100.7 F Hydrocodone Bitart/Acetaminophen ([place] 5mg-325mg) 1 - 2 tablet PO Q4H PRN PRN PRN Reason: Pain Score 4-10/10 Amlodipine Besylate (Norvasc) 5 mg PO DAILY SHIREEN Hydralazine HCl (Apresoline Iv) 10 mg IV Q4H PRN PRN PRN Reason: SBP > 160 Sodium Chloride () 1,000 mls @ 100 mls/hr IV .Q10H SHIREEN Pantoprazole Sodium 80 mg/ (Sodium Chloride) 100 mls @ 10 mls/hr CONT INF Q10H SHIREEN Last Admin: 03/18/19 03:55 Dose: 10 mls/hr Documented by: Morphine Sulfate () 1 mg IV Q4H PRN PRN PRN Reason: Pain Score 6-10/10 Non-Formulary Medication (Leflunomide [Arava]) 20 mg PO DAILY SHIREEN Ondansetron HCl (Zofran) 4 mg IV Q8H PRN PRN PRN Reason: NAUSEA/VOMITING Sodium Chloride () 10 - 40 ml IV UD PRN PRN Reason: SALINE FLUSH Medical Necessity - Tobacco Use Smoking Status: Never smoker Assessment/Plan 78 y/o M with anemia, melena, epigastric pain Hemoglobin will be rechecked after the 4 units have finished. Continue IV the Protonix EGD planned for about 130. Sobeida Howard M.D. Pager: [phone] [facility] [address] [place] [address], [facility], [address] [place] [address] Office: [phone]
[2019-03-18] MEDS: 0.9% Normal Saline 1,000 ML 100 ML IV ×2 (09:03→15:48)
[2019-03-18 09:26] LABS: Absolute Lymphocyte Count 0.51 X10^3/uL (0.83-4.51); Absolute Neutrophil Count 5.7 X10^3/uL (2.0-7.7); Basophil# 0.07 X10^3/uL; Differential Indicated SCAN CRITERIA MET; Eosinophil# 0.09 X10^3/uL; Eosinophils% 1.3 % (0-5); Hematocrit 26.4 % (40-54); Hemoglobin 8.2 g/dL (13.0-16.5); Lymphocyte # 0.51 X10^3/ul (4.0); Lymphocyte % 7.2 % (19-41); Mean Corp Hgb Conc 31.1 g/dL (32-36); Mean Corpuscular Hgb 26.7 pg (27.0-32.0); Mean Platelet Vol. 10.8 fl (6.2-12.0); Monocyte# 0.66 X10^3/uL; Monocyte% 9.3 % (0-10); NRBC Flagged by Analyzer 0 % (0-5); Neutrophil # 5.73 X10^3/uL (2.7-7.7); Neutrophil % 80.5 % (47-70); POSITIVE DIFFERENTIAL YES; Platelet Count 157 K/mm3 (150-450); RBC Distribution Width SD 50.3 fl (35.1-43.9); Red Blood Count 3.07 M/mm3 (4.6-6.2); White Blood Count 7.1 K/mm3 (4.4-11.0)
[2019-03-18 09:32] LABS: International Normalized Ratio 1.4; Prothrombin Time (Protime)PT. 16.7 SECONDS (11.7-14.9)
[2019-03-18 09:33] LABS: Partial Thromboplast Time 26.9 Seconds (24.1-36.2)
[2019-03-18 09:35] LABS: Anion Gap 7 (5-15); BUN 15 mg/dL (7-18); BUN/Creat Ratio 19.9 RATIO (10-20); Calcium,Total 8.2 mg/dL (8.5-10.1); Chloride 115 mmol/L (98-107); Creatinine, Serum 0.75 mg/dL (0.70-1.30); EST Glomerular Filtration Rate 106 mL/min (>60); Est Glom Filt Rate - Afr Amer 128 mL/min (>60); Estimated Creatinine Clearance 64.67 ml/min; Glucose 100 mg/dL (74-106); Lipase 79 U/L (73-393); Potassium 3.8 mmol/L (3.5-5.1); Sodium Level 143 mmol/L (136-145)
[2019-03-18 11:59] LABS: Pathologist Review Reviewed
--- NOTE | 2019-03-18 12:06 | CASEMGMT ---
RN CM Assessment Presentation: Anemia Intro role of CM and purpose of RN CM assessment to patient and his . Pt is awake, alert and able to participate in assessment. Demographics, PCP and Pharmacy verified. Pt states he has not been able to do much around house due to weakness, but is independent and does not use DME. PCP: Dr. Garett Castaneda Specialists: Dr. Ruffin, cardiology, Dr. Ortega, urology, Arthritis doctor Preferred Pharmacy: [facility] Insurance: [facility] [employer] Prescription Benefit: yes LNOK: Brittany Living Arrangements: Lives in one story home independently. is able to assist with any care needs. Transportation: drives if needed DME: denies dme use HHC/SNF: none Patient DC goals: Home DC PLAN: Home on discharge. Tracy IRVIN RN ACM
--- NOTE | 2019-03-18 12:12 | CASEMGMT ---
Intro role of CM to patient and ARAYA form explained re: Observation status for treatment of anemia. Explained hospitalization will be paid per? insurance policy for Outpatient billing?and condition will continue to be evaluated for Inpt necessity. Also let pt know that [facility] sends paper in the billing packet with their phone number if questions arise. Discussed Pharmacy section of ARAYA form and self administered medication guideline.? Pt verbalizes understanding and does not have further questions. Form signed and placed in chart, copy to pt. JANIYA SCHAFER BSN CM
--- NOTE | 2019-03-18 12:41 | NURSING ---
report called to endo and pt off floor via bed with in waiting room
--- NOTE | 2019-03-18 13:30 | IMM_PTH ---
PATIENT: AMRICEL DANIEL LOC: PCU U#:[id number] AGE/SX: 78/M ROOM: [facility] RE03/17/[address]: Dr. Bria Her MD : 1940 BED: 1 DIS: 03/19/2019 SPEC #: [id number] RECD: 03/19/19 15:24 STATUS: HILARY REQ #: [id number] CRISTIANA: 03/18/19 13:[address]: Sobeida Howard DEPT: IMMUNOHISTOCHEMISTRY RECD BY: Taylor Alcocer ENTERED: 03/19/19 15:25 SP TYPE: IMMUNO OTHR DR: MD Dr. Garett Gomez MD Dr. Ghasem E Ashelfah, MD Dr. Paul Moodispaw, MD Eric Smith, MD Tissues: A - Stomach, NOS Procedures: H Pylori (initial) PHYSICIAN & INSTITUTION [place] [address] SPECIMEN INFORMATION: Tissue Source: A - Antral biopsy Clinical Info: Johnny Specimen Number: [id number] CPT code: 99657 METHODOLOGY: Deparaffinized sections of prefer/formalin-fixed tissue or PAP/DQ stained slides are incubated with monoclonal/polyclonal antibodies/oligonucleotide probes. Localization is made via biotin free immunoperoxidase method. Appropriate controls are performed and reacted as expected. Results on target cell population are indicated in the following table: RESULTS: ANTIBODY / CLONE RESULT Block A H Pylori (polyclonal) negative These tests were developed and their performance characteristics determined by [facility]. They may not have been cleared or approved by the U.S. Food and Drug Administration. The FDA has determined that such clearance or approval is not necessary. INTERPRETATION: A. Antral biopsy: Negative for Helicobacter pylori organisms. AM:iram 03/20/19
--- NOTE | 2019-03-18 13:30 | EGD_PTH ---
PATIENT: MARICEL DANIEL LOC: PCU U#:[id number] AGE/SX: 78/M ROOM: [facility] RE03/17/[address]: Dr. Bria Her MD : 1940 BED: 1 DIS: 03/19/2019 SPEC #: [id number] RECD: 03/18/19 14:58 STATUS: HILARY REAngelo #: [id number] CRISTIANA: 03/18/19 13:[address]: Sobeida Howard DEPT: SURGICAL PATHOLOGY RECD BY: Roberth Calloway ENTERED: 03/19/19 13:32 SP TYPE: EGD BIOPSY OT DR: MD Dr. Garett Gomez MD Dr. Ghasem E Ashelfah, MD Dr. Paul Moodispaw, MD Eric Smith, MD Tissues: A - Gastric mucous membrane B - Gastric mucous membrane C - COLON BIOPSY Procedures: Special Stain Group II Surgery Specimen Level IV Alcian Blue/PAS (control) HEADER OPERATION: EGD ([facility]) PRE-OP DIAGNOSIS: Anemia TISSUE SUBMITTED: A - Antral biopsy for histo and H. pylori, B - GE junction biopsy, C - Ascending colon polyp biopsy MICROSCOPIC DIAGNOSIS A. Gastric antrum, biopsy: Minimal chronic inflammation. See comment. B. Gastroesophageal junction, biopsy: Mild chronic inflammation. No evidence of goblet cell metaplasia. See comment. C. Ascending colon polyp, biopsy: Tubular adenoma. AM:iram 03/20/19 COMMENT A. The results of immunohistochemistry for Helicobacter pylori will be reported separately ([id number]). B. Alcian blue/PAS stain with matched control supports the above diagnosis. MICROSCOPIC DESCRIPTION Slides are reviewed. GROSS DESCRIPTION A - Received in fixative is one container labeled with the patient's name and designated antral biopsy. The specimen consists of one irregular fragment of light romero soft tissue that measures 0.3 x 0.3 x 0.2 cm. The specimen is totally submitted in one cassette. / SJ:iram 03/19/19 B - Received in fixative is one container labeled with the patient's name and designated GE junction biopsy. The specimen consists of multiple irregular fragments of light romero soft tissue that in aggregate measure 0.4 x 0.4 x 0.1 cm. The specimen is totally submitted in one cassette. / SJ:iram 03/19/19 C - Received in fixative is one container labeled with the patient's name and designated ascending colon polyp. The specimen consists of one irregular fragment of light romero soft tissue that measures 0.3 x 0.2 x 0.1 cm. The specimen is totally submitted in one cassette. / AM:iram 03/19/19 TC:3 CPT: 71536 x3, 46403
--- NOTE | 2019-03-18 14:32 | OP.EGD_ITS ---
Patient Name: Ronal Hansen Procedure Date: 03/18/2019 2:03 PM Date of : 1940 Age: 78 Procedure: Upper GI endoscopy Indications: Epigastric abdominal pain, Heme positive stool, Melena Providers: Sobeida Howard MD Referring MD: Federico Holt Medicines: Monitored Anesthesia Care Patient Profile: This is an 78 year old male. Complications: No immediate complications. Procedure: Pre-Anesthesia Assessment: - Prior to the procedure, a History and Physical was performed, and patient medications and allergies were reviewed. The patient's tolerance of previous anesthesia was also reviewed. The risks and benefits of the procedure and the sedation options and risks were discussed with the patient. All questions were answered, and informed consent was obtained. Prior Anticoagulants: The patient has taken Xarelto (rivaroxaban), last dose was 3 days prior to procedure. ASA Grade Assessment: III - A patient with severe systemic disease. After reviewing the risks and benefits, the patient was deemed in satisfactory condition to undergo the procedure. After obtaining informed consent, the endoscope was passed under direct vision. Throughout the procedure, the patient's blood pressure, pulse, and oxygen saturations were monitored continuously. The gastroscope was introduced through the mouth, and advanced to the second part of duodenum. The upper GI endoscopy was accomplished without difficulty. The patient tolerated the procedure well. Scope In: 2:14:47 PM Scope Out: 2:24:22 PM Total Procedure Duration Time 0 hours 9 minutes 35 seconds Findings: The Z-line was irregular and was found 43 cm from the incisors. Biopsies were taken with a cold forceps for histology. Diffuse mild inflammation characterized by erythema was found in the entire examined stomach. Biopsies were taken with a cold forceps for histology. Biopsies were taken with a cold forceps for Helicobacter pylori cultures and Helicobacter pylori testing using a rapid urease test. Mild inflammation characterized by erythema was found in the duodenal bulb. The exam of the duodenum was otherwise normal. Impression: - Z-line irregular, 43 cm from the incisors. Biopsied. - Gastritis. Biopsied. - Duodenitis. Recommendation: - Return patient to hospital roach bowel prep for colonoscopy, pt has melena during the procedure. - Clear liquid diet. - Continue present medications. - hold anticoagulation - Await pathology results. - Perform a colonoscopy tomorrow. Procedure Code(s): --- Professional --- 93217, Esophagogastroduodenoscopy, flexible, transoral; with biopsy, single or multiple Diagnosis Code(s): --- Professional --- K22.8, Other specified diseases of esophagus K29.70, Gastritis, unspecified, without bleeding K29.80, Duodenitis without bleeding R10.13, Epigastric pain R19.5, Other fecal abnormalities K92.1, Melena (includes Hematochezia) CPT copyright 2017 [employer]. All rights reserved. The codes documented in this report are preliminary and upon coverstitch machine operator review may be revised to meet current compliance requirements. MD Sobeida Jacinto MD 03/18/2019 2:31:46 PM This report has been signed electronically. Number of Addenda: 1 Note Initiated On: 03/18/2019 2:03 PM Addendum Number: 1 Addendum Date: 03/18/2019 2:37:49 PM Pt also had a small sliding hiatal hernia MD Sobeida Jacinto MD 03/18/2019 2:38:34 PM This report has been signed electronically.
[2019-03-18 16:31] LABS: Hematocrit 24.4 % (40-54); Hemoglobin 7.8 g/dL (13.0-16.5)
[2019-03-18] MEDS: Electrolyte Solution/Peg's 4000 ML PO (17:00)
[2019-03-18] MEDS: Leflunomide 10 MG TABLET 20 MG PO (17:47)
[2019-03-18] MEDS: 0.9% Normal Saline 1,000 ML 999 ML IV (18:23)
--- NOTE | 2019-03-18 18:38 | NURSING ---
pt with another 5beat run [employer]. dr. hanson aware and ordered amiodarone. pt drank all but 2 cups of golytley
[2019-03-18 20:16] LABS: Anion Gap 7 (5-15); BUN 13 mg/dL (7-18); BUN/Creat Ratio 18.6 RATIO (10-20); Calcium,Total 7.8 mg/dL (8.5-10.1); Chloride 114 mmol/L (98-107); EST Glomerular Filtration Rate 115 mL/min (>60); Est Glom Filt Rate - Afr Amer 140 mL/min (>60); Estimated Creatinine Clearance 64.67 ml/min; Glucose 115 mg/dL (74-106); Potassium 3.6 mmol/L (3.5-5.1); Sodium Level 141 mmol/L (136-145)
[2019-03-18 20:19] LABS: Magnesium 2.1 mg/dL (1.6-2.6)
[2019-03-18 20:20] LABS: Phosphorus 2.1 mg/dL (2.5-4.9)
--- NOTE | 2019-03-18 20:39 | ECHOD_ITS ---
Reason For Study: AFIB/FLUTTER Procedure This was a 2D Doppler, Color Flow transthoracic echocardiogram. The exam was of adequate technical quality. Exam performed portable in patient room. Left Ventricle Mildly dilated left ventricle. Left ventricular systolic function is lower limits of normal. The estimated ejection fraction is 50 %. Unable to assess diastolic dysfunction. No regional wall motion abnormalities noted. Right Ventricle Normal RV size. Normal systolic function. Atria The left atrium is moderately enlarged. The right atrium is moderately enlarged. No doppler evidence for ASD. Mitral Valve There is no mitral annular calcification. Normal mitral valve. Mild (1+) mitral valve insufficiency. Tricuspid Valve Normal tricuspid valve. Mild to moderate (1-2+) tricuspid valve insufficiency. Right ventricular systolic pressure estimated to be 41 mmHg. Aortic Valve Trisinus/trileaflet aortic valve. Mild focal aortic valve calcification. Mild aortic stenosis. Moderate (2+) aortic valve insufficiency. Pulmonic Valve The pulmonic valve is not well visualized. Trivial pulmonic valve insufficiency. Great Vessels Mildly dilated aortic root. Pericardium/Pleural No pericardial effusion. MMode/2D Measurements & Calculations LVIDd: 6.0 cm IVSd: 1.0 cm LVOT diam: 2.2 cm LVIDs: 5.3 cm LVPWd: 1.0 cm LVOT area: 3.7 cm2 RVDd: 4.1 cm FS: 12.1 % Ao root diam: 4.2 cm LAV(MOD-bp): 135.1 ml LVAd ap4: 37.2 cm2 LAV(MOD-bp) Indexed: 64.1 ml/m2 EDV(MOD-sp4): 136.0 ml LAV(MOD-sp2): 140.7 ml EDV(sp4-el): 135.3 ml LAV(MOD-sp4): 120.6 ml LVAs ap4: 29.5 cm2 ESV(MOD-sp4): 98.3 ml ESV(sp4-el): 100.6 ml EF(MOD-sp4): 27.7 % EF(sp4-el): 25.6 % SV(MOD-sp4): 37.7 ml SV(sp4-el): 34.6 ml LA A4 area: 31.7 cm2 LA dimension(2D): 4.8 cm RA A4 area: 33.9 cm2 Doppler Measurements & Calculations Ao V2 max: 164.0 cm/sec AI max luz: 460.2 cm/sec LV V1 max: 94.6 cm/sec Ao max P.8 mmHg AI max P.7 mmHg LV V1 max P.7 mmHg Ao V2 mean: 118.9 cm/sec LV V1 mean P.0 mmHg Ao mean P.3 mmHg AI dec slope: 321.4 cm/sec2 LV V1 mean: 64.2 cm/sec Ao V2 VTI: 28.0 cm AI P1/2t: 419.3 msec LV V1 VTI: 14.9 cm STANLEY(I,D): 1.9 cm2 STANLEY(V,D): 2.1 cm2 SV(LVOT): 54.6 ml PA V2 max: 83.2 cm/sec PI end-d luz: 110.7 cm/sec TR max luz: 285.6 cm/sec TR max P.7 mmHg Interpretation Summary Mildly dilated left ventricle. Left ventricular systolic function is lower limits of normal. The estimated ejection fraction is 50 %. The left atrium is moderately enlarged. The right atrium is moderately enlarged. Mild (1+) mitral valve insufficiency. Mild to moderate (1-2+) tricuspid valve insufficiency. Mild focal aortic valve calcification. Mild aortic stenosis. Moderate (2+) aortic valve insufficiency. Trivial pulmonic valve insufficiency. Mildly dilated aortic root. Right ventricular systolic pressure estimated to be 41 mmHg. Unable to assess diastolic dysfunction. Ordering Physician: Flavio Hernandez Referring Physician: LINDSEY TORRES Performed By: Sydney Verdin, OMERCS, RVT
--- NOTE | 2019-03-18 20:44 | CON.PCM_ITS ---
Problem List (1) Atrial fibrillation Status: Chronic Qualifiers: Atrial fibrillation type: chronic (2) Hypotension Status: Acute (3) Cardiomyopathy in other diseases classified elsewhere Status: Chronic (4) Valvular heart disease Status: Chronic (5) Thoracic aortic aneurysm without rupture Status: Chronic (6) Hyperlipidemia Status: Chronic (7) Hypertension Status: Chronic Qualifiers: Hypertension type: essential hypertension Qualified Code(s): I10 - Essential (primary) hypertension (8) Anemia Status: Acute Reason for Consult Date of Consultation: 03/18/19 History of Present Illness: The patient is a 78 year old white male with a past cardiovascular history which is included atrial fibrillation, non-CAD related cardiomyopathy, valvular heart disease, thoracic aortic aneurysm-ascending, hyperlipidemia, and hypertension, who is undergoing evaluation for anemia who is being referred for concerns of atrial fibrillation and hypotension. The patient states that he has been short of breath and dyspneic and tired and fatigued. He has denied ongoing chest discomfort but he has admitted to abdominal discomfort. He has had no episodes of acute orthopnea or PND or peripheral pitting edema. He states he is unaware of his irregular heart rate/rhythm. There has been no near syncope or syncope. He presented to the [facility] for further evaluation. He was found to be markedly anemic with a hemoglobin of approximately 4. He was placed in the PCU for further evaluation and care. He has been receiving PRBCs. He underwent EGD evaluation this day. He is pending further evaluation with colonoscopy tomorrow. In the meantime there have been concerns about his atrial fibrillation and episodes of rapid ventricular response and hypotension. Thus he was referred to cardiology for further evaluation and care. At the present time he denies ongoing acute symptoms with respect to his chest, breathing, or sensation of rapid heart rates. He still complains of abdominal discomfort. He has been receiving IV fluids. He has been receiving PRBCs-4 units. He is pending an additional unit of PRBCs. He has been treated with additional medication including an IV amiodarone bolus. His heart rate appeared to slow somewhat. After the aforementioned fluids, IV amiodarone, etc., his blood pressure appeared to improve somewhat. [] Past Medical History Allergies/Adverse Reactions: Allergies rofecoxib [From Vioxx] Adverse Reaction (Severe, Verified 03/17/19 13:46) Mouth sores tetanus immune globulin Adverse Reaction (Severe, Verified 03/17/19 13:46) Hypotension, diaphresis Home Medications: Ambulatory Orders Medication Instructions Recorded Leflunomide [Arava] 20 mg PO DAILY 05/24/16 Rivaroxaban [Xarelto] 20 mg PO DAILY 05/24/16 Acetaminophen [Tylenol Arthritis] 650 mg PO DAILY PRN PRN 03/17/19 Amlodipine Besylate 5 mg PO DAILY 03/17/19 Prednisone 5 - 10 mg PO DAILY PRN PRN 03/17/19 Past Medical History (Chronic Problems): Chronic Problems (Last Updated 03/17/19 @ 17:47 by Federico Holt MD) Valvular heart disease (Chronic) Thoracic aortic aneurysm without rupture (Chronic) History of prostate cancer (Chronic) Hypertension (Chronic) 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 History Items: No pertinent history Paternal Family History: Family History (Last Reviewed 04/02/18 @ 13:56 by Marcos Ruffin MD) Sister Hypertension Father Cancer Mother No problems noted. History Items: No pertinent history Lives: Spouse/ Significant Other Smoking Status: Never smoker Alcohol: None Drugs: None Review of Systems - Review of Systems General: Reports: Weakness. Denies: Fatigue, Night Sweats Cardiovascular: Reports: Shortness of Breath, Shortness of Breath with Exertion. Denies: Chest Discomfort, Orthopnea, PND, Peripheral Edema, Palpitations, Lightheadedness, Dizziness, Near Syncope, Syncope Respiratory: Reports: Shortness of Breath. Denies: Cough, Sputum Production, Hemoptysis Gastrointestinal: Reports: Abdominal Discomfort, Melena. Denies: Hematemesis, Hematochezia Genitourinary: Denies: Dysuria, Hematuria Skin: Denies: Rash Subjectve: This is an 78-year-old white male who appears to be resting reasonably comfortably at the moment in no acute distress. Objective: Vital Signs Temp Pulse Resp BP Pulse Ox 97.8 F 97 18 127/64 H 96 03/18/19 18:37 03/18/19 20:20 03/18/19 20:31 03/18/19 20:31 03/18/19 20:20 Oxygen Flow Rate (L/min) 2 Oxygen Delivery Method Room Air Weight: 195 lb 12.328 oz Body Mass Index (BMI) 26.5 Intake and Output for Last 24 Hours 03/16/19 03/17/19 03/18/19 23:59 23:59 23:59 Intake Total 935 / 935 5069.50 / 5069.50 Output Total 440 / 440 2049 / 2049 Balance 495 / 495 3019.50 / 3019.50 General: Awake, Alert, Oriented x 3, Cooperative, No Acute Distress, - - Pale appearing HEENT: Atraumatic, Normocephalic, PERRL, EOMI Oral: Moist Mucosa Neck: Supple, Good ROM, No JVD Lungs: Clear to auscultation Cardiovascular: Irregular Rhythm, Normal S1, Normal S2 Vascular: No Carotid Bruits Abdomen: Bowel Sounds Present, Soft, - - Epigastric area: Positive tenderness to palpation Extremities: No edema Neurological: No Focal Motor or Sensory Deficit Psych/Mental Status: Appropriate 03/18/19 09:10: WBC 7.1, RBC 3.07 L, Hgb 8.2 L, Hct 26.4 L, MCV 86.0, MCH 26.7 L , MCHC 31.1 L, Plt Count 157, MPV 10.8, Immature Gran % (Auto) 0.700, Neut % (Auto) 80.5 H, Lymph % (Auto) 7.2 L, [place] % (Auto) 9.3, Eos % (Auto) 1.3, Baso % (Auto) 1.0, Absolute Neuts (auto) 5.7, Nucleated RBC % 0 03/18/19 09:10: Sodium 143, Potassium 3.8, Chloride 115 H, Carbon Dioxide 21.0, Anion Gap 7, BUN 15, Creatinine 0.75, Est GFR (MDRD) Af Amer 128, Est GFR (MDRD) Non-Af 106, BUN/Creatinine Ratio 19.9, Glucose 100, Calcium 8.2 L 03/18/19 09:10: PT 16.7 H, INR 1.4, APTT 26.9 03/18/19 16:15: Hgb 7.8 L, Hct 24.4 L 03/18/19 19:40: Sodium 141, Potassium 3.6, Chloride 114 H, Carbon Dioxide 20.0 L , Anion Gap 7, BUN 13, Creatinine 0.70, Est GFR (MDRD) Af Amer 140, Est GFR (MDRD) Non-Af 115, BUN/Creatinine Ratio 18.6, Glucose 115 H, Calcium 7.8 L 03/18/19 19:40: Magnesium 2.1 03/18/19 19:40: Phosphorus 2.1 L Rhythm: Atrial fibrillation EKG: Atrial fibrillation; PVCs; low voltage QRS limb leads; nonspecific ST segment abnormality ECHO: 03-19-17 Left ventricle: Mild global hypokinesis; estimated LV of 45%; moderate left atrial enlargement; severe right atrial enlargement; mild MR/TR/AZ; mild to moderate AI; aortic root dilated 4.8 cm Cardiac Cath: Based upon previous cardiovascular outpatient office notes available for review: Aug, 2010: No angiographically significant appearing CAD; LVEF approximately 40 - 45% CXR: Preliminary evaluation: No acute cardiopulmonary disease process appreciated: Please see official report Assessment/Plan 1. Atrial fibrillation The patient has a long-standing history of atrial fibrillation. He has been treated medically. At the present time he is being evaluated for anemia thought secondary to gastrointestinal bleeding process. Thus his medications have been altered with respect to discontinuation of anticoagulant therapy. In the interim, potentially secondary to his marked anemia, he was noted to have exacerbation of his underlying ventricular rate as well as episodes of hypotension. Thus he is undergoing continued evaluation care to support his cardiovascular status with appropriate rate control and blood pressure support. This includes adjusting his medications and providing additional IV fluids and PRBCs. 2. Hypotension Again his hypotension may be multifactorial secondary to his decreased intravascular volume secondary to his anemia as well as potentially exacerbated by his atrial dysrhythmia with rapid ventricular response. At the present time he will continue evaluation care as noted above. Hopefully based upon adjustment of his medications, volume status, etc. his rate will stabilize as well his blood pressure. 3. Non-CAD related cardiomyopathy He does have a non-CAD related cardiomyopathy. He will continue at this time with medical management as deemed appropriate with adjustment based on vital signs, etc. His left ventricular wall motion systolic function can be reassessed with an echocardiogram which may assist in guiding his ongoing evaluation and care. 4. Valvular heart disease Based upon his previous evaluation he does have evidence of valvular heart disease with insufficiency of his mitral, tricuspid, aortic, pulmonic valves. Again this can be followed with echocardiographic studies. 5. Thoracic aortic aneurysm He does have a history of an underlying thoracic aortic aneurysm. This can be reassessed with echocardiographic studies as well as radiologic studies as deemed appropriate. 6. Hyperlipidemia He will continue medical management as deemed appropriate. 7. Hypertension His blood pressure will be followed. Again his medications, volume status, etc. being adjusted at this time to assist with blood pressure control including hypotension. 8. Anemia He was markedly anemic. The concern is this is related to an underlying gastrointestinal bleeding process. He is undergone EGD and is now pending colonoscopy. At the present time he remains without any anticoagulant therapy secondary to his marked anemia and requirements of multiple units of PRBCs. Comment: The above was discussed and reviewed with patient and previously discussed with Dr. Her. This note was generated using a voice recognition system and there may be incorrect words, spelling or punctuation that were not noted when reviewing the office note prior to saving.
[2019-03-18] MEDS: Acetaminophen 500 MG Tablet PO (23:11)
[2019-03-18] MEDS: DiphenhydrAMINE 25 MG Capsule PO (23:11)
[2019-03-19] VITALS (30 sets, daily range): BP systolic 89–136; BP diastolic 59–101; PULSE 26–116; RESP 17–26; TEMP 36.4–37.1; O2SAT 93–100; BMI 26.5
[2019-03-19] MEDS: 0.9% Saline Lock 10 ML Syringe IV (00:27)
[2019-03-19] MEDS: 0.9% Normal Saline 1,000 ML 100 ML IV ×2 (05:32→15:17)
[2019-03-19 05:34] LABS: Absolute Lymphocyte Count 0.75 X10^3/uL (0.83-4.51); Absolute Neutrophil Count 4.6 X10^3/uL (2.0-7.7); Basophil# 0.05 X10^3/uL; Basophil% 0.7 % (0-1); Eosinophil# 0.94 X10^3/uL; Eosinophils% 12.9 % (0-5); Hematocrit 25.8 % (40-54); Hemoglobin 8.3 g/dL (13.0-16.5); Lymphocyte # 0.75 X10^3/ul (4.0); Lymphocyte % 10.3 % (19-41); Mean Corp Hgb Conc 32.2 g/dL (32-36); Mean Corpuscular Hgb 27.6 pg (27.0-32.0); Mean Corpuscular Volume 85.7 fL (80-94); Mean Platelet Vol. 10.5 fl (6.2-12.0); Monocyte# 0.94 X10^3/uL; Monocyte% 12.9 % (0-10); NRBC Flagged by Analyzer 0 % (0-5); Neutrophil # 4.59 X10^3/uL (2.7-7.7); Neutrophil % 62.7 % (47-70); Platelet Count 132 K/mm3 (150-450); RBC Distribution Width CV 16.4 % (11.6-14.6); RBC Distribution Width SD 51.5 fl (35.1-43.9); Red Blood Count 3.01 M/mm3 (4.6-6.2); White Blood Count 7.3 K/mm3 (4.4-11.0)
[2019-03-19 05:53] LABS: Anion Gap 7 (5-15); BUN 13 mg/dL (7-18); BUN/Creat Ratio 17.4 RATIO (10-20); Calcium,Total 7.6 mg/dL (8.5-10.1); Chloride 112 mmol/L (98-107); Creatinine, Serum 0.75 mg/dL (0.70-1.30); EST Glomerular Filtration Rate 107 mL/min (>60); Est Glom Filt Rate - Afr Amer 129 mL/min (>60); Estimated Creatinine Clearance 64.67 ml/min; Glucose 107 mg/dL (74-106); Potassium 3.3 mmol/L (3.5-5.1); Sodium Level 141 mmol/L (136-145)
--- NOTE | 2019-03-19 05:55 | EKG12_ITS ---
Test Reason : AM EKG Blood Pressure : / mmHG Vent. Rate : 087 BPM Atrial Rate : 104 BPM P-R Int : 000 ms QRS Dur : 098 ms QT Int : 400 ms P-R-T Axes : 000 033 027 degrees QTc Int : 481 ms Atrial fibrillation with premature ventricular or aberrantly conducted complexes Low voltage QRS Nonspecific ST abnormality Prolonged QT Abnormal ECG When compared with ECG of 18-MAR-2019 05:50, MANUAL COMPARISON REQUIRED, DATA IS UNCONFIRMED Confirmed by LUCY SILVA ([id number]), metropolitan editor KITTY FRIED ([id number]) on 03/23/2019 11:02:45 AM Referred By: Federico Holt Confirmed By:LUCY SILVA
--- NOTE | 2019-03-19 08:19 | PCM.PN.HOSP ---
Patient Problems: Active and Suspected Problems (Last Updated 03/17/19 @ 17:47 by Federico Holt MD) Hypotension (Acute) Anemia (Acute) Subjective: Patient overnight with episodes of atrial fibrillation with RVR which improved with amiodarone bolus as well as low blood pressures improving with a liter bolus in addition to another 1 unit PRBC with ongoing initially rest colored then melanotic stools with planned colonoscopy today. Discussed at length with and that if unremarkable colonoscopy would necessitate transfer to tertiary facility for GI evaluation and consideration of capsule endoscopy. Patient remains fatigued, weak, denies any abdominal pain or cramping. Patient denies fevers, chills, nausea, emesis, chest pain or dyspnea. Objective: Physical Examination: General: awake, alert, oriented x 3 and cooperative, laying in the PCU bed, pale and fatigued appearance. Skin: Pale color, turgor, no icterus, cyanosis. HEENT: AT/NC, EOMI, PERRLA, ongoing mildly dry MM. Lungs: Diminished breath sounds bilaterally, greater bilateral bases, mild effort, no rales, ronchi or wheezing. Heart: Improved, currently rate controlled, irregular rhythm; no gallop, rub audible. Abdomen: soft, overweight, nontender to palpation, no current epigastric discomfort which have been present prior, hyperactive bowel sounds, nondistended. Extremities: no cyanosis, clubbing, or edema. Neurological: patient awake, alert, oriented x 3; cognitive function intact; pupils equally reactive to light and accomodation; cranial nerves II-XII grossly normal, moving all 4 extremities, no focal deficits, strength severely global decrease secondary to acute presentation. Psychiatric: affect appears fatigued, flat, no acute evidence of depressive or anxiety feelings. Vitals/I&O's: Vital Signs Temp Pulse Resp BP Pulse Ox 97.8 F 74 19 H 118/62 96 03/19/19 06:00 03/19/19 07:00 03/19/19 07:00 03/19/19 07:00 03/19/19 07:00 Oxygen Flow Rate (L/min) 2 Oxygen Delivery Method Room Air Weight: 195 lb 12.328 oz Body Mass Index (BMI) 26.5 Intake and Output for Last 24 Hours 03/17/19 03/18/19 03/19/19 23:59 23:59 23:59 Intake Total 935 / 935 6776.12 / 6809.42 795.09 / 795.09 Output Total 440 / 440 2225 / 2225 Balance 495 / 495 4551.12 / 4584.42 795.09 / 795.09 Microbiology Past 72 Hours 03/17/19 14:20 Stool Stool Occult Blood (SABINO) - Final Occult Blood Positive Laboratory Results 03/17/19 13:58: Diff Path Review Reviewed 03/17/19 13:58: Crossmatch See Detail 03/18/19 09:10: WBC 7.1, RBC 3.07 L, Hgb 8.2 L, Hct 26.4 L, MCV 86.0, MCH 26.7 L, MCHC 31.1 L, RDW Std Deviation 50.3 H, RDW Coeff of [place] 16.0 H, Plt Count 157, MPV 10.8, Immature Gran % (Auto) 0.700, Neut % (Auto) 80.5 H, Lymph % (Auto) 7.2 L, [place] % (Auto) 9.3, Eos % (Auto) 1.3, Baso % (Auto) 1.0, Absolute Neuts (auto) 5.7, Absolute Lymphs (auto) 0.51 L, Nucleated RBC % 0, Differential Comment COMMENT 03/18/19 09:10: Sodium 143, Potassium 3.8, Chloride 115 H, Carbon Dioxide 21.0, Anion Gap 7, BUN 15, Creatinine 0.75, Estim Creat Clear Calc 64.67, Est GFR (MDRD) Af Amer 128, Est GFR (MDRD) Non-Af 106, BUN/Creatinine Ratio 19.9, Glucose 100, Calcium 8.2 L, Lipase 79 03/18/19 09:10: PT 16.7 H, INR 1.4, APTT 26.9 03/18/19 16:15: Hgb 7.8 L, Hct 24.4 L 03/18/19 19:40: Sodium 141, Potassium 3.6, Chloride 114 H, Carbon Dioxide 20.0 L, Anion Gap 7, BUN 13, Creatinine 0.70, Estim Creat Clear Calc 64.67, Est GFR (MDRD) Af Amer 140, Est GFR (MDRD) Non-Af 115, BUN/Creatinine Ratio 18.6, Glucose 115 H, Calcium 7.8 L 03/18/19 19:40: Magnesium 2.1 03/18/19 19:40: Phosphorus 2.1 L 03/19/19 05:10: WBC 7.3, RBC 3.01 L, Hgb 8.3 L, Hct 25.8 L, MCV 85.7, MCH 27.6, MCHC 32.2, RDW Std Deviation 51.5 H, RDW Coeff of [place] 16.4 H, Plt Count 132 L, MPV 10.5, Immature Gran % (Auto) 0.500, Neut % (Auto) 62.7, Lymph % (Auto) 10.3 L, [place] % (Auto) 12.9 H, Eos % (Auto) 12.9 H, Baso % (Auto) 0.7, Absolute Neuts (auto) 4.6, Absolute Lymphs (auto) 0.75 L, Nucleated RBC % 0 03/19/19 05:10: Sodium 141, Potassium 3.3 L, Chloride 112 H, Carbon Dioxide 22.0, Anion Gap 7, BUN 13, Creatinine 0.75, Estim Creat Clear Calc 64.67, Est GFR (MDRD) Af Amer 129, Est GFR (MDRD) Non-Af 107, BUN/Creatinine Ratio 17.4, Glucose 107 H, Calcium 7.6 L Current Medications Acetaminophen (Tylenol) 650 mg PO Q6H PRN PRN PRN Reason: Pain Score 1-3/Temp > 100.7 F Acetaminophen (Tylenol) 500 mg PO QHS PRN PRN Last Admin: 03/18/19 23:11 Dose: 500 mg Documented by: Hydrocodone Bitart/Acetaminophen ([place] 5mg-325mg) 1 - 2 tablet PO Q4H PRN PRN PRN Reason: Pain Score 4-10/10 Diphenhydramine HCl (Benadryl) 25 mg PO QHS PRN PRN Last Admin: 03/18/19 23:11 Dose: 25 mg Documented by: Furosemide (Lasix) 40 mg IV X1 PRN PRN Reason: SHORTNESS OF BREATH Hydralazine HCl (Apresoline Iv) 10 mg IV Q4H PRN PRN PRN Reason: SBP > 160 Sodium Chloride () 1,000 mls @ 100 mls/hr IV .Q10H [facility] Last Admin: 03/19/19 05:32 Dose: 100 mls/hr Documented by: Pantoprazole Sodium 80 mg/ (Sodium Chloride) 100 mls @ 10 mls/hr CONT INF Q10H SHIREEN Last Admin: 03/19/19 01:05 Dose: 10 mls/hr Documented by: Amiodarone HCl 360 mg/ (Dextrose) 200 mls @ 16.667 mls/hr CONT INF .Q12H SHIREEN Stop: 03/19/19 20:59 Last Infusion: 03/19/19 07:00 Dose: 0.5 mg/min, 16.7 mls/hr Documented by: Leflunomide (Leflunomide) 20 mg PO DAILY SHIREEN Last Admin: 03/18/19 17:47 Dose: 20 mg Documented by: Morphine Sulfate () 1 mg IV Q4H PRN PRN PRN Reason: Pain Score 6-10/10 Ondansetron HCl (Zofran) 4 mg IV Q8H PRN PRN PRN Reason: NAUSEA/VOMITING Sodium Chloride () 10 - 40 ml IV UD PRN PRN Reason: SALINE FLUSH Last Admin: 03/19/19 00:27 Dose: 10 ml Documented by: STROKE Vital Signs/Narrative: Vital Signs Temp Pulse Resp BP Pulse Ox 03/19/19 07:00 74 19 H 118/62 96 03/19/19 06:00 97.8 F 82 23 H 129/84 H 98 03/19/19 05:00 116 H 22 H 134/101 H 99 03/19/19 04:30 87 24 H 122/78 H 98 Medical Necessity - Tobacco Use Smoking Status: Never smoker Assessment/Plan All Active Problems (Last Updated 03/17/19 @ 17:47 by Federico Holt MD) Hypotension (Acute) Anemia (Acute) The patient is an 78 y/o M w/ PMHx: CAF on Xarelto, Cardiomyopathy unclear type, PVD, RA, Raynaud's Syndrome, HTN, HLD who presents to the [facility] ED on 03/18/19 with history of 1 week of ongoing sharp epigastric and midabdominal abdominal pain, intermittent, 10 out of 10 in severity with extension to the lower abdomen with associated nausea without emesis with dark black stools preceding this for several weeks. 1. Acute GI Bleed w/ resultant Acute Blood Loss Anemia: Patient w/ dark black stools and ongoing abdominal pain, CT A/P without acute findings, + guiac, admission Hgb 4.5, given stable VS upon ED evaluation admitted to PCU, maintained on IVFs, coags not marked but on xarelto for atrial fibrillation held x 2 days prior to presentation, administered 4 u PRBC upon initial presentation but given additional 2 unit PRBC as recurrent melanotic stools and hemoglobin trends not as improved as desired with initial 4.5-> 8.2-> 7.8 and most recently this a.m. 8.3, BP improved following these administrations as well as liter bolus the evening prior, maintained on IV PPI, 03/18/19 EGD with findings in the stomach consistent with gastritis as well as duodenitis but no obvious bleeding, biopsy performed, patient noted during procedure to have melanotic stool, pending colonoscopy for today. If no obvious source of bleeding would necessitate transfer to tertiary facility for consideration of GI evaluation and possible capsule endoscopy. 2. Chronic atrial fibrillation with RVR: Holding xarelto given presentation, not on rate of rhythm agent outpatient, atrial fibrillation with RVR overnight secondary to ongoing anemia with melanotic stools, improved following amiodarone bolus, IV fluid bolus as well as additional 1 unit PRBC with most recent hemoglobin this morning 8.3, technically not the level it should be with PRBC administration x6 now, will add low-dose metoprolol given BP improvement, continue to closely monitor, cardiology consulted and following. 3. Rheumatoid Arthritis: Continue leflunomide and PRN pain agents. Hold steroids given acute presentation. 4. Hypertension: Amiodarone held secondary to hypotension, BP improvement, adding metoprolol given #2, PRN hydralazine. 5. Cardiomyopathy, unclear type: Holding Xarelto as noted, given BP mild improvement adding low-dose metoprolol given #2, defer JEISON inhibitor/ARB given low normal BP presently. 6. PVD: Holding Xarelto as noted, not on statin, continue hypertensive regimen with parameters as needed given transient hypotension with #1 presentation. 7. History of prostate cancer: Status post radiation with seed implants, stable, remission. 8. Hyperlipidemia: Not on statin, defer. 9. DVT prophylaxis: SCDs, holding Xarelto as noted given acute presentation #1. Code Visit Inpatient E&M: [id number] [facility] L3
[2019-03-19] MEDS: HYDROcodone Bitartrate/Apap 5/325 Tablet PO ×2 (08:20→14:04)
[2019-03-19] MEDS: Bisacodyl 5 MG Tablet 10 MG PO (08:20)
[2019-03-19] MEDS: Leflunomide 10 MG TABLET 20 MG PO (08:21)
--- NOTE | 2019-03-19 09:07 | PN.SURG_ITS ---
Patient Problems: Active and Suspected Problems (Last Updated 03/17/19 @ 17:47 by Federico Holt MD) Hypotension (Acute) Anemia (Acute) Subjective: Patient did have some lower blood pressures yesterday did respond to fluids also get 1 unit of packed red blood cells current hemoglobin is 8.3 per nursing stools are still dark liquid, will give patient some Dulcolax as well as tapwater enema plan for colonoscopy today about noon - Physical Exam Vitals/I&O's: Vital Signs Temp Pulse Resp BP Pulse Ox 97.8 F 74 19 H 118/62 96 03/19/19 06:00 03/19/19 07:00 03/19/19 07:00 03/19/19 07:00 03/19/19 07:00 Oxygen Flow Rate (L/min) 2 Oxygen Delivery Method Room Air Weight: 195 lb 12.328 oz Body Mass Index (BMI) 26.5 Intake and Output for Last 24 Hours 03/17/19 03/18/19 03/19/19 23:59 23:59 23:59 Intake Total 935 / 935 6776.12 / 6809.42 795.09 / 795.09 Output Total 440 / 440 2225 / 2225 Balance 495 / 495 4551.12 / 4584.42 795.09 / 795.09 General: Alert, Oriented x3, Cooperative, No apparent distress HEENT: Atraumatic Lungs: Normal air movement Abdomen: Soft, Non Tender, Non-Distended Extremities: No edema Neurological: Cranial nerves II-XII grossly intact Psych/Mental Status: Normal Affect Microbiology Past 72 Hours 03/17/19 14:20 Stool Stool Occult Blood (SABINO) - Final Occult Blood Positive Laboratory Results 03/17/19 13:58: Diff Path Review Reviewed 03/17/19 13:58: Crossmatch See Detail 03/18/19 09:10: WBC 7.1, RBC 3.07 L, Hgb 8.2 L, Hct 26.4 L, MCV 86.0, MCH 26.7 L , MCHC 31.1 L, RDW Std Deviation 50.3 H, RDW Coeff of [place] 16.0 H, Plt Count 157, MPV 10.8, Immature Gran % (Auto) 0.700, Neut % (Auto) 80.5 H, Lymph % (Auto) 7.2 L, [place] % (Auto) 9.3, Eos % (Auto) 1.3, Baso % (Auto) 1.0, Absolute Neuts (auto) 5.7, Absolute Lymphs (auto) 0.51 L, Nucleated RBC % 0, Differential Comment COMMENT 03/18/19 09:10: Sodium 143, Potassium 3.8, Chloride 115 H, Carbon Dioxide 21.0, Anion Gap 7, BUN 15, Creatinine 0.75, Estim Creat Clear Calc 64.67, Est GFR (MDRD) Af Amer 128, Est GFR (MDRD) Non-Af 106, BUN/Creatinine Ratio 19.9, Glucose 100, Calcium 8.2 L, Lipase 79 03/18/19 09:10: PT 16.7 H, INR 1.4, APTT 26.9 03/18/19 16:15: Hgb 7.8 L, Hct 24.4 L 03/18/19 19:40: Sodium 141, Potassium 3.6, Chloride 114 H, Carbon Dioxide 20.0 L , Anion Gap 7, BUN 13, Creatinine 0.70, Estim Creat Clear Calc 64.67, Est GFR (MDRD) Af Amer 140, Est GFR (MDRD) Non-Af 115, BUN/Creatinine Ratio 18.6, Glucose 115 H, Calcium 7.8 L 03/18/19 19:40: Magnesium 2.1 03/18/19 19:40: Phosphorus 2.1 L 03/19/19 05:10: WBC 7.3, RBC 3.01 L, Hgb 8.3 L, Hct 25.8 L, MCV 85.7, MCH 27.6, MCHC 32.2, RDW Std Deviation 51.5 H, RDW Coeff of [place] 16.4 H, Plt Count 132 L, MPV 10.5, Immature Gran % (Auto) 0.500, Neut % (Auto) 62.7, Lymph % (Auto) 10.3 L, [place] % (Auto) 12.9 H, Eos % (Auto) 12.9 H, Baso % (Auto) 0.7, Absolute Neuts (auto) 4.6, Absolute Lymphs (auto) 0.75 L, Nucleated RBC % 0 03/19/19 05:10: Sodium 141, Potassium 3.3 L, Chloride 112 H, Carbon Dioxide 22.0, Anion Gap 7, BUN 13, Creatinine 0.75, Estim Creat Clear Calc 64.67, Est GFR (MDRD) Af Amer 129, Est GFR (MDRD) Non-Af 107, BUN/Creatinine Ratio 17.4, Glucose 107 H, Calcium 7.6 L Current Medications Acetaminophen (Tylenol) 650 mg PO Q6H PRN PRN PRN Reason: Pain Score 1-3/Temp > 100.7 F Acetaminophen (Tylenol) 500 mg PO QHS PRN PRN Last Admin: 03/18/19 23:11 Dose: 500 mg Documented by: Hydrocodone Bitart/Acetaminophen ([place] 5mg-325mg) 1 - 2 tablet PO Q4H PRN PRN PRN Reason: Pain Score 4-10/10 Last Admin: 03/19/19 08:20 Dose: 2 tablet Documented by: Diphenhydramine HCl (Benadryl) 25 mg PO QHS PRN PRN Last Admin: 03/18/19 23:11 Dose: 25 mg Documented by: Furosemide (Lasix) 40 mg IV X1 PRN PRN Reason: SHORTNESS OF BREATH Hydralazine HCl (Apresoline Iv) 10 mg IV Q4H PRN PRN PRN Reason: SBP > 160 Sodium Chloride () 1,000 mls @ 100 mls/hr IV .Q10H [facility] Last Admin: 03/19/19 05:32 Dose: 100 mls/hr Documented by: Pantoprazole Sodium 80 mg/ (Sodium Chloride) 100 mls @ 10 mls/hr CONT INF Q10H [facility] Last Admin: 03/19/19 01:05 Dose: 10 mls/hr Documented by: Amiodarone HCl 360 mg/ (Dextrose) 200 mls @ 16.667 mls/hr CONT INF .Q12H [facility] Stop: 03/19/19 20:59 Last Infusion: 03/19/19 07:00 Dose: 0.5 mg/min, 16.7 mls/hr Documented by: Leflunomide (Leflunomide) 20 mg PO DAILY [facility] Last Admin: 03/19/19 08:21 Dose: 20 mg Documented by: Morphine Sulfate () 1 mg IV Q4H PRN PRN PRN Reason: Pain Score 6-10/10 Ondansetron HCl (Zofran) 4 mg IV Q8H PRN PRN PRN Reason: NAUSEA/VOMITING Sodium Chloride () 10 - 40 ml IV UD PRN PRN Reason: SALINE FLUSH Last Admin: 03/19/19 00:27 Dose: 10 ml Documented by: Medical Necessity - Tobacco Use Smoking Status: Never smoker Assessment/Plan All Active Problems (Last Updated 03/17/19 @ 17:47 by Federico Holt MD) Hypotension (Acute) Anemia (Acute) 78 y/o M with anemia, melena, epigastric pain, status post EGD with mild gastritis We will plan to do a colonoscopy today. About noon. Patient did get additional Dulcolax as well as a tapwater enema has he was still having dark stools. His last colonoscopy was in 2010 along with his EGD he was H. pylori positive at that time did receive a Prevpac x14 days and his colonoscopy only had diverticulosis and a tortuous colon. Sobeida Howard M.D. Pager: [phone] [facility] [address] [place] [address], [facility], [address] [place] [address] Office: [phone]
--- NOTE | 2019-03-19 10:50 | NURSING ---
report called to AC
--- NOTE | 2019-03-19 13:18 | CASEMGMT ---
According to the [facility] website, the following are in-network tertiary facilities: [facility], [facility], [facility], [facility], [facility], [facility], [place], [facility], and . Blanquita SCHAFER CM
--- NOTE | 2019-03-19 13:24 | OP.COLON_ITS ---
Patient Name: Ronal Hansen Procedure Date: 03/19/2019 12:22 PM Date of : 1940 Age: 78 Procedure: Colonoscopy Indications: Heme positive stool, Melena, Iron deficiency anemia secondary to chronic blood loss Providers: Sobeida Howard MD Referring MD: Federico Holt Medicines: Monitored Anesthesia Care Patient Profile: This is an 78 year old male. Last Colonoscopy: 8 years ago. Complications: No immediate complications. Procedure: Pre-Anesthesia Assessment: - Prior to the procedure, a History and Physical was performed, and patient medications and allergies were reviewed. The patient's tolerance of previous anesthesia was also reviewed. The risks and benefits of the procedure and the sedation options and risks were discussed with the patient. All questions were answered, and informed consent was obtained. Prior Anticoagulants: The patient has taken Xarelto (rivaroxaban), last dose was 4 days prior to procedure. ASA Grade Assessment: III - A patient with severe systemic disease. After reviewing the risks and benefits, the patient was deemed in satisfactory condition to undergo the procedure. After I obtained informed consent, the scope was passed under direct vision. Throughout the procedure, the patient's blood pressure, pulse, and oxygen saturations were monitored continuously. The Duodenoscope was introduced through the anus and advanced to the terminal ileum. The colonoscopy was technically difficult and complex due to poor endoscopic visualization. Successful completion of the procedure was aided by lavage. The patient tolerated the procedure well. The quality of the bowel preparation was poor and 60 percent obscured. Scope In: 12:36:23 PM Scope Withdrawal Time 0 hours 18 minutes 53 seconds Scope Out: 1:10:44 PM Total Procedure Duration Time 0 hours 34 minutes 21 seconds Findings: dark/black liquid stool on ERLIN Hematin (altered blood/coghzt-muqsfk-pzsc material) was found in the entire colon. A less than 5 mm polyp was found in the ascending colon. The polyp was semi-sessile. The polyp was removed with a cold biopsy forceps. Resection and retrieval were complete. The terminal ileum contained hematin (altered blood/lxwwhw-sljkto-rxed material). Two small localized angioectasias with bleeding were found in the rectum. Coagulation for destruction of remaining portion of lesion using argon plasma at 1.4 liters/minute and 30 cruz was successful. Multiple small-mouthed diverticula were found in the sigmoid colon. Impression: - Preparation of the colon was poor. - Blood in the entire examined colon. - One less than 5 mm polyp in the ascending colon, removed with a cold biopsy forceps. Resected and retrieved. - Blood in the terminal ileum. - Two bleeding colonic angioectasias. Treated with argon plasma coagulation (APC). - Diverticulosis in the sigmoid colon. Recommendation: - Return patient to hospital [facility] for ongoing care. - Plan to transfer patient to tertiary care facility with GI, as patient has black liquid stool throughout colon and in terminal ileum, no obvious colon masses seen, but poor prep - Repeat colonoscopy per GI at tertiary care facility. - Continue present medications. - No aspirin, ibuprofen, naproxen, or other non-steroidal anti-inflammatory drugs. Procedure Code(s): --- Professional --- 82483, Colonoscopy, flexible; with ablation of tumor(s), polyp(s), or other lesion(s) (includes pre- and post-dilation and guide wire passage, when performed) 28254, 59, Colonoscopy, flexible; with biopsy, single or multiple Diagnosis Code(s): --- Professional --- K92.2, Gastrointestinal hemorrhage, unspecified D12.2, Benign neoplasm of ascending colon K55.21, Angiodysplasia of colon with hemorrhage R19.5, Other fecal abnormalities K92.1, Melena (includes Hematochezia) D50.0, Iron deficiency anemia secondary to blood loss (chronic) CPT copyright 2017 [employer]. All rights reserved. The codes documented in this report are preliminary and upon personnel worker review may be revised to meet current compliance requirements. MD Sobeida Jacinto MD 03/19/2019 1:24:31 PM This report has been signed electronically. Number of Addenda: 0 Note Initiated On: 03/19/2019 12:22 PM
--- NOTE | 2019-03-19 13:41 | PCM.DC.SUM ---
Discharge Date and Diagnosis - Problem List Patient Problems: Active and Suspected Problems (Last Updated 03/17/19 @ 17:47 by Federico Holt MD) Hypotension (Acute) Anemia (Acute) Date of Admission: 03/17/19 Date of Discharge: 03/19/19 - Primary Discharge Diagnosis Active and Suspected Problems (Last Updated 03/17/19 @ 17:47 by Federico Holt MD) 1. Acute GI Bleed w/ resultant Acute Blood Loss Anemia 2. Chronic atrial fibrillation with RVR 3. Rheumatoid Arthritis 4. Hypertension 5. Cardiomyopathy, unclear type 6. PVD 7. History of prostate cancer 8. 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 Howard Surgery Dr. Hernandez Cardiology Operations: None Procedures: Blood transfusion, EKG Summary of Care Provided: The patient is an 78 y/o M w/ PMHx: CAF on Xarelto, Cardiomyopathy unclear type, PVD, RA, Raynaud's Syndrome, HTN, HLD who presented to the [facility] ED on 03/18/19 with history of 1 week of ongoing sharp epigastric and midabdominal abdominal pain, intermittent, 10 out of 10 in severity with extension to the lower abdomen with associated nausea without emesis with dark black stools preceding this for several weeks. Patient w/ dark black stools and ongoing abdominal pain, CT A/P without acute findings, + guiac, admission Hgb 4.5, given stable VS upon ED evaluation admitted to PCU, maintained on IVFs, coags not marked but on xarelto for atrial fibrillation held x 2 days prior to presentation, administered 4 u PRBC upon initial presentation but given additional 2 unit PRBC as recurrent melanotic stools and hemoglobin trends not as improved as desired with initial 4.5-> 8.2-> 7.8 and most recently this a.m. 8.3, BP improved following these administrations as well as liter bolus the evening prior, maintained on IV PPI, 03/18/19 EGD with findings in the stomach consistent with gastritis as well as duodenitis but no obvious bleeding, biopsy performed, patient noted during procedure to have melanotic stool, 03/19/19 c-scope performed with noted unfortunate poor colon prep, blood noted in the entire colon, dark appearing, 5 mm polyp in the ascending colon, removed, blood noted additionally in the terminal ileum, 2 bleeding colonic [place] ectasias noted which were treated with argon plasma coagulation as well as diverticulosis in the sigmoid colon with recommendation to transfer to tertiary care facility for GI evaluation. Additionally during admission patient upon admission with chronic A. fib, rate controlled at that time however 03/18/19 evening, onset atrial fibrillation with RVR secondary to ongoing anemia with melanotic stools, improved following amiodarone bolus, IV fluid bolus as well as additional 1 unit PRBC with most recent hemoglobin 03/19/19 Hgb 8.3, added low dose metoprolol given BP improvement for rate control. Patient Problems: Active and Suspected Problems (Last Updated 03/17/19 @ 17:47 by Federico Holt MD) Hypotension (Acute) Anemia (Acute) - Physical Exam Vitals/I&O's: Vital Signs Temp Pulse Resp BP Pulse Ox 98.7 F 26 L 18 124/64 H 97 03/19/19 13:36 03/19/19 13:36 03/19/19 13:36 03/19/19 13:36 03/19/19 13:36 Oxygen Flow Rate (L/min) 2 Oxygen Delivery Method Room Air Weight: 195 lb 12.328 oz Body Mass Index (BMI) 26.5 Intake and Output for Last 24 Hours 03/17/19 03/18/19 03/19/19 23:59 23:59 23:59 Intake Total 935 / 935 6776.12 / 6809.42 2035. / 2035.96 Output Total 440 / 440 2225 / 2225 Balance 495 / 495 4551.12 / 4584.42 2035. / 2035. Microbiology Past 72 Hours 03/17/19 14:20 Stool Stool Occult Blood (SABINO) - Final Occult Blood Positive Laboratory Results 03/17/19 13:58: Crossmatch See Detail 03/18/19 16:15: Hgb 7.8 L, Hct 24.4 L 03/18/19 19:40: Sodium 141, Potassium 3.6, Chloride 114 H, Carbon Dioxide 20.0 L, Anion Gap 7, BUN 13, Creatinine 0.70, Estim Creat Clear Calc 64.67, Est GFR (MDRD) Af Amer 140, Est GFR (MDRD) Non-Af 115, BUN/Creatinine Ratio 18.6, Glucose 115 H, Calcium 7.8 L 03/18/19 19:40: Magnesium 2.1 03/18/19 19:40: Phosphorus 2.1 L 03/19/19 05:10: WBC 7.3, RBC 3.01 L, Hgb 8.3 L, Hct 25.8 L, MCV 85.7, MCH 27.6, MCHC 32.2, RDW Std Deviation 51.5 H, RDW Coeff of Mariana 16.4 H, Plt Count 132 L, MPV 10.5, Immature Gran % (Auto) 0.500, Neut % (Auto) 62.7, Lymph % (Auto) 10.3 L, [place] % (Auto) 12.9 H, Eos % (Auto) 12.9 H, Baso % (Auto) 0.7, Absolute Neuts (auto) 4.6, Absolute Lymphs (auto) 0.75 L, Nucleated RBC % 0 03/19/19 05:10: Sodium 141, Potassium 3.3 L, Chloride 112 H, Carbon Dioxide 22.0, Anion Gap 7, BUN 13, Creatinine 0.75, Estim Creat Clear Calc 64.67, Est GFR (MDRD) Af Amer 129, Est GFR (MDRD) Non-Af 107, BUN/Creatinine Ratio 17.4, Glucose 107 H, Calcium 7.6 L Current Medications Acetaminophen (Tylenol) 650 mg PO Q6H PRN PRN PRN Reason: Pain Score 1-3/Temp > 100.7 F Acetaminophen (Tylenol) 500 mg PO QHS PRN PRN Last Admin: 03/18/19 23:11 Dose: 500 mg Documented by: Hydrocodone Bitart/Acetaminophen ([place] 5mg-325mg) 1 - 2 tablet PO Q4H PRN PRN PRN Reason: Pain Score 4-10/10 Last Admin: 03/19/19 08:20 Dose: 2 tablet Documented by: Diphenhydramine HCl (Benadryl) 25 mg PO QHS PRN PRN Last Admin: 03/18/19 23:11 Dose: 25 mg Documented by: Furosemide (Lasix) 40 mg IV X1 PRN PRN Reason: SHORTNESS OF BREATH Hydralazine HCl (Apresoline Iv) 10 mg IV Q4H PRN PRN PRN Reason: SBP > 160 Sodium Chloride () 1,000 mls @ 100 mls/hr IV .Q10H [facility] Last Infusion: 03/19/19 12:14 Dose: 100 mls/hr Documented by: Pantoprazole Sodium 80 mg/ (Sodium Chloride) 100 mls @ 10 mls/hr CONT INF Q10H [facility] Last Infusion: 03/19/19 12:15 Dose: 10 mls/hr Documented by: Amiodarone HCl 360 mg/ (Dextrose) 200 mls @ 16.667 mls/hr CONT INF .Q12H [facility] Stop: 03/19/19 20:59 Last Infusion: 03/19/19 13:00 Dose: 0.5 mg/min, 16.7 mls/hr Documented by: Calcium Gluconate 2 gm/ (Dextrose) 120 mls @ 60 mls/hr IV X1 ONE Stop: 03/19/19 15:29 Leflunomide (Leflunomide) 20 mg PO DAILY [facility] Last Admin: 03/19/19 08:21 Dose: 20 mg Documented by: Metoprolol Tartrate (Lopressor (Beta Vickie)) 25 mg PO BID [facility] Morphine Sulfate () 1 mg IV Q4H PRN PRN PRN Reason: Pain Score 6-10/10 Ondansetron HCl (Zofran) 4 mg IV Q8H PRN PRN PRN Reason: NAUSEA/VOMITING Sodium Chloride () 10 - 40 ml IV UD PRN PRN Reason: SALINE FLUSH Last Admin: 03/19/19 00:27 Dose: 10 ml Documented by: Home Medications: Medications to take at Discharge Leflunomide [Arava] 20 mg PO DAILY 05/24/16 Rivaroxaban [Xarelto] 20 mg PO DAILY 05/24/16 Acetaminophen [Tylenol Arthritis] 650 mg PO DAILY PRN PRN 03/17/19 Amlodipine Besylate 5 mg PO DAILY 03/17/19 Prednisone 5 - 10 mg PO DAILY PRN PRN 03/17/19 Primary Care Physician: Garett Castaneda MD [Primary Care Provider] - Please Follow Up With: Garett Castaneda MD Disposition: Acute care Hospital Minutes spent on discharge:: 35 Patient Condition:: Stable Medical Necessity - Tobacco Use Smoking Status: Never smoker Meaningful Use Info Meaningful Use Diagnoses (Choose all that apply): None applicable Code Visit Inpatient E&M: 97028 Disch Hosp
[2019-03-19] MEDS: Metoprolol Tartrate 25 MG Tablet PO (14:03)
[2019-03-19 14:40] LABS: Hematocrit 24.3 % (40-54)
--- NOTE | 2019-03-19 16:55 | NURSING ---
1525 report called to [place] SCHAFER at [facility]
== END 2019-03-19 16:49 | disposition short-term general hospital (02) | DRG 378 ==
LOC: ED 14:22 → PCU 17:56
PROVIDERS: Anesthesiology; Surgery; Admitting Provider Hospitalist; Emergency Provider Emergency Medicine; Family Provider Family Medicine; PCP Family Medicine; Referring Provider Hospitalist; Visit Provider Family Medicine
PROC: 0DJ08ZZ Inspection of Upper Intestinal Tract, Via Natural or Artificial Opening Endoscopic (ICD-10-PCS; CPT 43235; principal; 2019-03-18 13:25)
PROC: 0DJD8ZZ Inspection of Lower Intestinal Tract, Via Natural or Artificial Opening Endoscopic (ICD-10-PCS; CPT 45378; principal; 2019-03-19 11:55)
DX: K92.2 Gastrointestinal hemorrhage, unspecified (principal); D62 Acute posthemorrhagic anemia; I48.20 Chronic atrial fibrillation, unspecified; I42.9 Cardiomyopathy, unspecified; K55.9 Vascular disorder of intestine, unspecified; M06.9 Rheumatoid arthritis, unspecified; I10 Essential (primary) hypertension; K57.30 Diverticulosis of large intestine without perforation or abscess without bleeding; K63.5 Polyp of colon; K29.80 Duodenitis without bleeding; K29.70 Gastritis, unspecified, without bleeding; E78.5 Hyperlipidemia, unspecified; I71.2 Thoracic aortic aneurysm, without rupture; I37.1 Nonrheumatic pulmonary valve insufficiency; I36.1 Nonrheumatic tricuspid (valve) insufficiency; I34.0 Nonrheumatic mitral (valve) insufficiency; Z92.3 Personal history of irradiation; I35.1 Nonrheumatic aortic (valve) insufficiency; Z85.46 Personal history of malignant neoplasm of prostate; I73.00 Raynaud's syndrome without gangrene
CPT/HCPCS: 36415; 71045; 74177; 80048; 80053; 81001; 82274; 82728; 83540; 83550; 83605; 83690; 83735; 84100; 84484; 85014; 85018; 85025; 85610; 85730; 86850; 86900; 86901; 86920; 88305; 88313; 88342; 93005; 93306; 97162; 97166; 97802; 99285; J7030; J7040; P9016; Q9967; A4216; J0610; J3490

== ENCOUNTER → 2019-03-28 13:52 | Outpatient (CLI) | payer MEDICARE, SELFPAY ==
[2019-03-19 11:32] VITALS: BMI 26.5
[2019-03-28 14:43] LABS: Hematocrit 24.7 % (40-54); Hemoglobin 7.4 g/dL (13.0-16.5)
[2019-03-28 15:06] LABS: Anion Gap 3 (5-15); BUN 11 mg/dL (7-18); BUN/Creat Ratio 14.5 RATIO (10-20); Calcium,Total 8.5 mg/dL (8.5-10.1); Chloride 112 mmol/L (98-107); Creatinine, Serum 0.76 mg/dL (0.70-1.30); EST Glomerular Filtration Rate 105 mL/min (>60); Est Glom Filt Rate - Afr Amer 127 mL/min (>60); Glucose 97 mg/dL (74-106); Potassium 4.2 mmol/L (3.5-5.1); Sodium Level 142 mmol/L (136-145)
== END ==
PROVIDERS: Physician Assistant Medical; Family Provider Family Medicine; PCP Family Medicine; Referring Provider Internal Medicine Cardiovascular Disease; Visit Provider Internal Medicine Cardiovascular Disease
DX: D50.9 Iron deficiency anemia, unspecified (principal); E87.6 Hypokalemia
CPT/HCPCS: 36415; 80048; 85014; 85018

== ENCOUNTER → 2019-04-04 11:37 | Outpatient (CLI) | payer MEDICARE, SELFPAY ==
[2019-03-19 11:32] VITALS: BMI 26.5
[2019-04-04 12:34] LABS: Absolute Lymphocyte Count 0.84 X10^3/uL (0.83-4.51); Absolute Neutrophil Count 2.8 X10^3/uL (2.0-7.7); Basophil# 0.06 X10^3/uL; Basophil% 1.4 % (0-1); Eosinophil# 0.08 X10^3/uL; Eosinophils% 1.9 % (0-5); Hematocrit 25.4 % (40-54); Hemoglobin 7.2 g/dL (13.0-16.5); Lymphocyte # 0.84 X10^3/ul (4.0); Lymphocyte % 20.1 % (19-41); Mean Corp Hgb Conc 28.3 g/dL (32-36); Mean Corpuscular Hgb 26.2 pg (27.0-32.0); Mean Corpuscular Volume 92.4 fL (80-94); Mean Platelet Vol. 10.7 fl (6.2-12.0); Monocyte# 0.42 X10^3/uL; Monocyte% 10.1 % (0-10); NRBC Flagged by Analyzer 0 % (0-5); Neutrophil # 2.76 X10^3/uL (2.7-7.7); Neutrophil % 66.3 % (47-70); POSITIVE COUNT YES; POSITIVE MORPHOLOGY YES; Platelet Count 130 K/mm3 (150-450); RBC Distribution Width CV 17.7 % (11.6-14.6); RBC Distribution Width SD 59.7 fl (35.1-43.9); Red Blood Count 2.75 M/mm3 (4.6-6.2); White Blood Count 4.2 K/mm3 (4.4-11.0)
[2019-04-04 12:38] LABS: Differential Indicated SCAN CRITERIA MET
[2019-04-04 12:53] LABS: ALB/GLOB Ratio 1.2 RATIO (0.9-2.4); AST(SGOT) 13 U/L (15-37); Alanine Aminotransfer ALT/SGPT 11 U/L (16-61); Albumin, Serum 3.3 g/dL (3.2-5.0); Alkaline Phosphatase 67 U/L (45-117); Anion Gap 5 (5-15); BUN 14 mg/dL (7-18); BUN/Creat Ratio 17.5 RATIO (10-20); Chloride 111 mmol/L (98-107); EST Glomerular Filtration Rate 99 mL/min (>60); Est Glom Filt Rate - Afr Amer 119 mL/min (>60); Ferritin 46 ng/mL (26-388); Globulin 2.8 g/dL (2.2-4.2); Glucose 82 mg/dL (74-106); Protein, Total 6.1 g/dL (6.4-8.2); Sodium Level 141 mmol/L (136-145)
[2019-04-04 14:46] LABS: Reticulocyte Count 3.83 % (0.5-1.5)
[2019-04-04 14:47] LABS: RET-HE 22.2 pg (30-35)
== END ==
PROVIDERS: Family Provider Family Medicine; PCP Family Medicine; Referring Provider Physician Assistant Medical; Visit Provider Physician Assistant Medical
DX: D64.9 Anemia, unspecified (principal); K92.2 Gastrointestinal hemorrhage, unspecified
CPT/HCPCS: 36415; 80053; 82728; 85025; 85045

== ENCOUNTER → 2019-04-11 13:44 | Outpatient (CLI) | payer MEDICARE, SELFPAY ==
[2019-03-19 11:32] VITALS: BMI 26.5
[2019-04-11 15:28] LABS: Absolute Lymphocyte Count 0.71 X10^3/uL (0.83-4.51); Absolute Neutrophil Count 4.7 X10^3/uL (2.0-7.7); Basophil# 0.05 X10^3/uL; Basophil% 0.8 % (0-1); Eosinophil# 0.08 X10^3/uL; Eosinophils% 1.3 % (0-5); Hematocrit 19.9 % (40-54); Lymphocyte # 0.71 X10^3/ul (4.0); Lymphocyte % 11.6 % (19-41); Mean Corp Hgb Conc 29.1 g/dL (32-36); Mean Corpuscular Hgb 24.9 pg (27.0-32.0); Mean Corpuscular Volume 85.4 fL (80-94); Mean Platelet Vol. 9.8 fl (6.2-12.0); Monocyte# 0.57 X10^3/uL; Monocyte% 9.3 % (0-10); NRBC Flagged by Analyzer 0 % (0-5); Neutrophil # 4.68 X10^3/uL (2.7-7.7); Neutrophil % 76.5 % (47-70); POSITIVE COUNT YES; Platelet Count 283 K/mm3 (150-450); RBC Distribution Width CV 17.7 % (11.6-14.6); RBC Distribution Width SD 55.4 fl (35.1-43.9); Red Blood Count 2.33 M/mm3 (4.6-6.2); White Blood Count 6.1 K/mm3 (4.4-11.0)
[2019-04-11 15:34] LABS: Hemoglobin 5.8 g/dL (13.0-16.5)
[2019-04-11 15:35] LABS: Differential Indicated SCAN CRITERIA MET
[2019-04-11 16:27] LABS: Anisocytosis 1+; Platelet Estimate ADEQUATE (ADEQ); Red Cell Morphology NORM C+C NORMAL (NORM C&C)
[2019-04-14 13:38] LABS: Pathologist Review Reviewed
== END ==
PROVIDERS: Family Provider Family Medicine; PCP Family Medicine; Referring Provider Family Medicine; Visit Provider Family Medicine
DX: D64.9 Anemia, unspecified (principal)
CPT/HCPCS: 36415; 85025

== ENCOUNTER 2019-04-11 16:17 | Inpatient (IN) | payer MEDICARE, SELFPAY ==
[2019-03-19 11:32] VITALS: BMI 26.5
[2019-04-11] VITALS (14 sets, daily range): BP systolic 112–126; BP diastolic 58–94; PULSE 70–90; RESP 13–24; TEMP 36.4–37.1; O2SAT 96–100; BMI 25.7; BMI 25.8; BMI 25.0
--- NOTE | 2019-04-11 16:38 | CT_ITS ---
STUDY: CT ABDOMEN AND PELVIS WITHOUT CONTRAST REASON FOR EXAM: Male, 78 years old. Lower abdominal pain RADIATION DOSAGE (If Supplied By Facility): CTDIvol = ( 19.71 ) mGy, DLP = ( 978.21 ) mGycm TECHNIQUE: Transaxial images were obtained from the dome of the diaphragm to the symphysis pubis without oral contrast, and without intravenous contrast. Sagittal and coronal images were reconstructed. Individualized dose optimization techniques were used for this CT. COMPARISON: 01 May 2018, 17 March 2019, 25 October 2013 FINDINGS: The visualized lung bases are unremarkable. There is severe enlargement of the right atrium. There is mild aortic valve stenosis. Pericardium is normal. There is a simple hepatic cyst. There are subcentimeter hypodense hepatic lesions, too small to reliably characterize. There is no cirrhosis or ascites or biliary dilation.. Normal gallbladder and extrahepatic biliary system. Normal spleen. Normal pancreas. There is no hydronephrosis or urinary calculi. Ureters and bladder are normal. There is heterogeneous partially exophytic anterior cortical 1.5 cm interpolar region lesion, possibly low grade renal cell carcinoma versus complex cyst. The lesion has increased minimally since 2013. There are additional multiple renal hypodensities that are either cysts or too small to be characterized. Perirenal space is normal. Adrenal glands are intact. There is no intestinal obstruction. There is sigmoid diverticulosis without diverticulitis. The aorta is of normal caliber. 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 Metallic seeds are present in the prostate. There is left anterior iliopsoas bursitis and severe degenerative change in the left, moderate degenerative change in the right hips. Osseous structures are intact with expected degenerative change in the lumbar spine. CT/Abdomen/Pelvis W IV Cont ONLY IMPRESSION: 1. No acute findings or change since prior. 2. Presumed tricuspid regurgitation. 3. Low-risk findings in the left kidney, see above discussion. Electronically Signed: Emigdio Rivera, at 18:30 EST Tel , Service support ,
--- NOTE | 2019-04-11 16:38 | EKG12_ITS ---
Test Reason : AB PAIN Blood Pressure : / mmHG Vent. Rate : 098 BPM Atrial Rate : 072 BPM P-R Int : 000 ms QRS Dur : 094 ms QT Int : 370 ms P-R-T Axes : 000 008 036 degrees QTc Int : 472 ms Atrial fibrillation with premature ventricular or aberrantly conducted complexes Nonspecific ST and T wave abnormality Abnormal ECG Confirmed by TAN COBIAN, ALLISON ([id number]), editor managing newspaper CLOVER VALADEZ ([id number]) on 04/15/2019 9:54:15 AM Referred By: MELONY Confirmed By:ALLISON MADDOX MD
--- NOTE | 2019-04-11 16:40 | RAD_ITS ---
STUDY: X-RAY CHEST REASON FOR EXAM: Male, 78 years old. Abnormal labs TECHNIQUE: Frontal view of the chest was performed COMPARISON: March 2019 FINDINGS: Lungs are clear. There is no pneumothorax, pulmonary edema, pleural effusions. There is mild cardiomegaly. Osseous structures are intact. There is prior orthopedic repair with a screw in the left humerus. There is no gas under the diaphragms. [ Appearance is similar to prior.] RAD/Chest 1 View (Portable) IMPRESSION: 1. No acute cardiorespiratory disease. [ 2. No change since prior. 3. Mild cardiomegaly Electronically Signed: Emigdio Rivera, at 17:12 EST Tel , Service support ,
[2019-04-11 16:54] LABS: Absolute Lymphocyte Count 0.77 X10^3/uL (0.83-4.51); Absolute Neutrophil Count 4.5 X10^3/uL (2.0-7.7); Basophil# 0.03 X10^3/uL; Basophil% 0.5 % (0-1); Eosinophil# 0.08 X10^3/uL; Eosinophils% 1.4 % (0-5); Hematocrit 19.8 % (40-54); Lymphocyte # 0.77 X10^3/ul (4.0); Lymphocyte % 13.1 % (19-41); Mean Corp Hgb Conc 28.8 g/dL (32-36); Mean Corpuscular Hgb 24.6 pg (27.0-32.0); Mean Corpuscular Volume 85.3 fL (80-94); Mean Platelet Vol. 9.7 fl (6.2-12.0); Monocyte# 0.48 X10^3/uL; Monocyte% 8.1 % (0-10); NRBC Flagged by Analyzer 0 % (0-5); Neutrophil % 76.4 % (47-70); POSITIVE COUNT YES; Platelet Count 288 K/mm3 (150-450); RBC Distribution Width CV 17.9 % (11.6-14.6); RBC Distribution Width SD 55.7 fl (35.1-43.9); Red Blood Count 2.32 M/mm3 (4.6-6.2); White Blood Count 5.9 K/mm3 (4.4-11.0)
--- NOTE | 2019-04-11 17:00 | ED.RN ---
LAB CALLED TO REPORT, HGB 5.7, DR. TY MADE AWARE.
[2019-04-11 17:01] LABS: Differential Indicated SCAN CRITERIA MET
[2019-04-11 17:02] LABS: Hemoglobin 5.7 g/dL (13.0-16.5)
[2019-04-11 17:18] LABS: ALB/GLOB Ratio 1.1 RATIO (0.9-2.4); AST(SGOT) 13 U/L (15-37); Alanine Aminotransfer ALT/SGPT 12 U/L (16-61); Albumin, Serum 3.3 g/dL (3.2-5.0); Alkaline Phosphatase 74 U/L (45-117); Anion Gap 8 (5-15); BUN 15 mg/dL (7-18); BUN/Creat Ratio 18.5 RATIO (10-20); Calcium,Total 8.9 mg/dL (8.5-10.1); Chloride 110 mmol/L (98-107); Creatinine, Serum 0.81 mg/dL (0.70-1.30); EST Glomerular Filtration Rate 97 mL/min (>60); Est Glom Filt Rate - Afr Amer 117 mL/min (>60); Estimated Creatinine Clearance 79.84 ml/min; Globulin 2.9 g/dL (2.2-4.2); Glucose 113 mg/dL (74-106); Lipase 48 U/L (73-393); Potassium 4.1 mmol/L (3.5-5.1); Protein, Total 6.2 g/dL (6.4-8.2); Sodium Level 142 mmol/L (136-145)
--- NOTE | 2019-04-11 17:18 | ED.DCSUM_ITS ---
History of Present Illness Chief Complaint: Abn Labs Informant: Patient, Significant Other Narrative: Patient is sent to the emergency room for abnormal lab values. Patient had a hemoglobin of 5.8 on outpatient labs. He has a history of GI bleed was actually admitted to begin the month for GI bleed. He received multiple blood transfusion was ultimately transferred to [facility]. The exact source of bleeding was never found however patient had been on Xarelto and did have diverticulum. Patient is continued to have black stools. He had thin black stools 2 nights ago per the . Patient states he is been short of breath with exertion. He states when he rest he has no complaints. He is not currently on any anticoagulation or any medications. Past Medical History - Allergies and Home Meds Allergies/Adverse Reactions: Allergies rofecoxib [From Vioxx] Adverse Reaction (Severe, Verified 04/11/19 16:20) Mouth sores tetanus immune globulin Adverse Reaction (Severe, Verified 04/11/19 16:20) Hypotension, diaphresis Past Medical History: - - Atrial fibrillation, GI bleed, Thoracic aortic aneurysm, hypertension, hyperlipidemia, peripheral vascular disease rheumatoid arthritis Surgical History: herniorrhaphy, total knee arthroplasty, - Lives: Spouse/ Significant Other Smoking Status: Never smoker - Family History Maternal Family History: Family History (Last Reviewed 04/02/18 @ 13:56 by Marcos Ruffin MD) Sister Hypertension Father Cancer Mother No problems noted. Family History: Reports: No pertinent history Paternal Family History: Family History (Last Reviewed 04/02/18 @ 13:56 by Marcos Ruffin MD) Sister Hypertension Father Cancer Mother No problems noted. Family History: Reports: No pertinent history Review of Systems General: Denies: Chills, Fever, Sweats Eyes: Denies: Visual changes - bilaterally, Diplopia ENT: Denies: Rhinorrhea, Sore throat Cardiovascular: Denies: Chest pain, Palpitations Respiratory: Reports: Dyspnea on exertion. Denies: Dyspnea, Cough Gastrointestinal: Reports: Melena. Denies: Abdominal pain, Nausea, Vomiting, Diarrhea, Hematochezia Genitourinary: Denies: Dysuria, Hematuria, Frequency Musculoskeletal: Denies: Back pain, Extremity Pain Skin: Denies: Rash, Wounds Neurological: Denies: Headache, Weakness, Numbness Physical Exam Vital Signs/Narrative: Vital Signs Temp Pulse Resp BP Pulse Ox 04/11/19 16:18 98 F 76 24 H 112/80 100 Inital Vital Signs reviewed: Yes General: Well nourished, Well developed, No Acute Distress Head: Normocephalic, Atraumatic Eyes: Perrl, EOMI, Pale conjunctiva ENT: Moist mucous membranes, No rhinorrhea Neck: Supple, Nontender, No JVD Cardiovascular: Regular rate, No murmurs, Irregular Respiratory: No distress, CTA bilaterally, Chest nontender Abdomen: Soft, Nontender, Nondistended, Normal bowel sounds Rectal: Guaiac positive, Nontender Back: Nontender, Normal Inspection Extremities: Nontender, No edema Skin: No rash, Pallor Neurological: Alert, Oriented x3, Cranial nerves II-XII grossly intact, Normal Strength, Normal Sensation Psychological: Normal affect, Normal Mood Diagnostic/Tx/Re-eval Chest X-Ray - ED: 1 View, Read by ED Physician, Read by Radiologist, No Acute Disease Clinical Impression(s) from Imaging Studies Abdomen/Pelvis CT 04/11/19 16:38 IMPRESSION: 1. No acute findings or change since prior. 2. Presumed tricuspid regurgitation. 3. Low-risk findings in the left kidney, see above discussion. Electronically Signed: Emigdio Rivera, at 18:30 EST Tel , Service support , Chest X-Ray 04/11/19 16:40 IMPRESSION: 1. No acute cardiorespiratory disease. [ 2. No change since prior. 3. Mild cardiomegaly Electronically Signed: Emigdio Rivera, at 17:12 EST Tel , Service support , Laboratory Data 04/11/19 04/11/19 04/11/19 16:35 16:36 16:36 WBC 5.9 RBC 2.32 L Hgb 5.7 L* Hct 19.8 L MCV 85.3 MCH 24.6 L MCHC 28.8 L RDW Std Deviation 55.7 H RDW Coeff of [place] 17.9 H Plt Count 288 MPV 9.7 Immature Gran % (Auto) 0.500 Neut % (Auto) 76.4 H Lymph % (Auto) 13.1 L [place] % (Auto) 8.1 Eos % (Auto) 1.4 Baso % (Auto) 0.5 Absolute Neuts (auto) 4.5 Absolute Lymphs (auto) 0.77 L Nucleated RBC % 0 Diff Path Review May foll Platelet Estimate ADEQUATE Hypochromasia 1+ Anisocytosis 1+ Schistocytes 1+ PT 15.4 H INR 1.2 APTT 29.3 Sodium Potassium Chloride Carbon Dioxide Anion Gap BUN Creatinine Estim Creat Clear Calc Est GFR (MDRD) Af Amer Est GFR (MDRD) Non-Af BUN/Creatinine Ratio Glucose Lactic Acid Calcium Total Bilirubin AST ALT Alkaline Phosphatase Troponin I Total Protein Albumin Globulin Albumin/Globulin Ratio Lipase Blood Type A POSITIVE Antibody Screen NEGATIVE Crossmatch See Detail 04/11/19 04/11/19 16:36 16:36 WBC RBC Hgb Hct MCV MCH MCHC RDW Std Deviation RDW Coeff of [place] Plt Count MPV Immature Gran % (Auto) Neut % (Auto) Lymph % (Auto) [place] % (Auto) Eos % (Auto) Baso % (Auto) Absolute Neuts (auto) Absolute Lymphs (auto) Nucleated RBC % Diff Path Review Platelet Estimate Hypochromasia Anisocytosis Schistocytes PT INR APTT Sodium 142 Potassium 4.1 Chloride 110 H Carbon Dioxide 24.0 Anion Gap 8 BUN 15 Creatinine 0.81 Estim Creat Clear Calc 79.84 Est GFR (MDRD) Af Amer 117 Est GFR (MDRD) Non-Af 97 BUN/Creatinine Ratio 18.5 Glucose 113 H Lactic Acid 2.2 H* Calcium 8.9 Total Bilirubin 0.40 AST 13 L ALT 12 L Alkaline Phosphatase 74 Troponin I 0.038 Total Protein 6.2 L Albumin 3.3 Globulin 2.9 Albumin/Globulin Ratio 1.1 Lipase 48 L Blood Type Antibody Screen Crossmatch - Rhythm Strip Rhythm Strip: A-fib Rate: 98 Ectopy: None - EKG Initial EKG Interpretation: Atrial Fibrillation, - - Atrial fibrillation at a rate of 98 QRS 94 QTc 472 Left axis deviation Normal ST segments - Medical Decision Making Patient is evaluated for anemia. Patient has a history of GI bleed and anemia requiring blood transfusions. Lab work today showed a hemoglobin of 5.8. Is rechecked and is now 5.7. His hemoglobin was 7.8 at the beginning of this month. Likely this is acute on chronic anemia with a slow GI bleed. He is guaiac positive. Patient is having some diffuse abdominal pain. I did check a lactate which is only minimally elevated at 2.2. I do not suspect mesenteric ischemia with that lactate. CT of the abdomen pelvis does not show a clear cause of his pain. He is currently not on any anticoagulation. I did discuss with surgery, Dr. Finn, who does not feel that a repeat endoscopy would be indicated at this time however he is available should there become an acute decompensation or change in patient status. Patient will be admitted for blood transfusion. He has appointment to see GI on Sunday. Patient and are agreeable with this plan. He is stable for the general medical floor at time of disposition. ED Disposition - Plan for ED Patient: Disposition: Acute Care Hospital [facility] Diagnosis: Anemia, Abdominal pain
[2019-04-11 17:24] LABS: Lactic Acid 2.2 mmol/L (0.4-1.9)
[2019-04-11 17:33] LABS: International Normalized Ratio 1.2; Prothrombin Time (Protime)PT. 15.4 SECONDS (11.7-14.9)
[2019-04-11 17:34] LABS: Partial Thromboplast Time 29.3 Seconds (24.1-36.2)
[2019-04-11 17:42] LABS: Anisocytosis 1+; Hypochromasia 1+; Platelet Estimate ADEQUATE (ADEQ); Schistocytes 1+
--- NOTE | 2019-04-11 19:13 | PCM.HP.STD ---
History of Present Illness Date of Admission: 04/11/19 Chief Complaint: GI bleed The patient is a 78 year old M with a PMH as below who presents with abnormal labs. He recently had a GI bleed earlier in March and had both an EGD and a colonoscopy here at this institution which were normal, and then he was transferred to [facility] in [place] where he had a repeat EGD and colonoscopy which were also normal. He was started on Protonix and discharged. Also his Xarelto was discontinued for his A. fib. He has since been having outpatient follow-up of his hemoglobin, and he was told that today his hemoglobin was 5.7, down from 7.2 a week ago. His last normal hemoglobin was in June 2018 with a hemoglobin of 12.9. Stool occult test here in the ER today was positive for blood. He says that he has had periods of normal stools however on he had an episode of diarrhea from something that he ate and at that time he had very loose black stools. Other than fatigue and some shortness of breath with exertion, he denies any lightheadedness or dizziness. Vital signs in the ER were unremarkable. 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9 Raynauds syndrome (Chronic) I73.00 Atrial fibrillation (Chronic) I48.91 Rheumatoid arthritis (Chronic) M06.9 Allergies rofecoxib [From Vioxx] Adverse Reaction (Severe, Verified 04/11/19 16:20) Mouth sores tetanus immune globulin Adverse Reaction (Severe, Verified 04/11/19 16:20) Hypotension, diaphresis Home Medications: Ambulatory Orders Medication Instructions Recorded Acetaminophen [Tylenol Arthritis] 650 mg PO DAILY PRN PRN 03/17/19 Pantoprazole Sodium 40 mg PO BID 04/11/19 Surgical History: Surgical History (Last Updated 03/17/19 @ 17:47 by Federico Holt MD) H/O repair of rotator cuff Z98.890 History of knee replacement (Inactive) Z96.659 Hx of hernia repair (Inactive) Z98.890, Z87.19 Surgical History: herniorrhaphy, total knee arthroplasty, - Psychiatric History: No pertinent psych hx Smoking Status: Never smoker Alcohol: None Drugs: None - *Family History Maternal Family History: Family History (Last Reviewed 04/02/18 @ 13:56 by Marcos Ruffin MD) Sister Hypertension Father Cancer Mother No problems noted. History Items: No pertinent history Paternal Family History: Family History (Last Reviewed 04/02/18 @ 13:56 by Marcos Ruffin MD) Sister Hypertension Father Cancer Mother No problems noted. History Items: No pertinent history Review of Systems Constitutional: Reports: Fatigue. Denies: Chills, Fever, Weight Change HEENT: Denies: Head Aches, Sinus Congestion, Sinus Drainage Cardiovascular: Denies: Chest Pain, Palpitations Respiratory: Reports: Shortness of breath upon exertion. Denies: Cough, Shortness of breath at rest, Sputum production Gastrointestinal: Reports: Melena. Denies: Abdominal Pain, Nausea, Vomiting Genitourinary: Denies: Dysuria Musculoskeletal: Denies: Joint Pain, Joint Tenderness Skin: Denies: Rash, Wounds Neurological: Denies: Numbness, Tingling, Focal weakness Psychiatric: Denies: Anxiety, Depression Hematologic/ Lymphatic: Denies: Easy Bruising, Easy Bleeding VTE Information - Inpt Only VTE Present on Admission: No - Physical Exam Vitals/I&O's: Vital Signs Temp Pulse Resp BP Pulse Ox 98.7 F 85 14 118/78 99 04/11/19 18:31 04/11/19 18:31 04/11/19 18:31 04/11/19 18:31 04/11/19 18:31 Oxygen Delivery Method Room Air Weight: 190 lb Body Mass Index (BMI) 25.7 Intake and Output for Last 24 Hours 04/09/19 04/10/19 04/11/19 23:59 23:59 23:59 Intake Total 610 / 610 Balance 610 / 610 General: Alert, Oriented x3, Cooperative, No apparent distress, - - Pale HEENT: Atraumatic, PERRLA, EOMI, Normocephalic Oral: Dry Mucosa Neck: Supple, No JVD Lungs: Clear to auscultation, Normal air movement, No rhonchi, No wheeze, No rales, Diminished Cardiovascular: Regular rate, Regular Rhythm, Normal S1, Normal S2, No murmurs Abdomen: Soft, Non Tender, Non-Distended, No Hepato-splenomegaly Extremities: No edema, Capillary Refill Less than 3 Seconds Skin: No rashes, No breakdown Neurological: Neuro grossly intact, Sensory exam intact to light touch and pain Psych/Mental Status: Normal Affect, Appropriate Microbiology Past 72 Hours 04/11/19 16:10 Stool Stool Occult Blood (SABINO) - Final Occult Blood Positive Laboratory Results 04/11/19 16:35: Blood Type A POSITIVE, Antibody Screen NEGATIVE, Crossmatch See Detail 04/11/19 16:36: WBC 5.9, RBC 2.32 L, Hgb 5.7 L*, Hct 19.8 L, MCV 85.3, MCH 24.6 L, MCHC 28.8 L, RDW Std Deviation 55.7 H, RDW Coeff of Mariana 17.9 H, Plt Count 288, MPV 9.7, Immature Gran % (Auto) 0.500, Neut % (Auto) 76.4 H, Lymph % (Auto) 13.1 L, [place] % (Auto) 8.1, Eos % (Auto) 1.4, Baso % (Auto) 0.5, Absolute Neuts (auto) 4.5, Absolute Lymphs (auto) 0.77 L, Nucleated RBC % 0, Diff Path Review August, Platelet Estimate ADEQUATE, Hypochromasia 1+, Anisocytosis 1+, Schistocytes 1+ 04/11/19 16:36: PT 15.4 H, INR 1.2, APTT 29.3 04/11/19 16:36: Sodium 142, Potassium 4.1, Chloride 110 H, Carbon Dioxide 24.0, Anion Gap 8, BUN 15, Creatinine 0.81, Estim Creat Clear Calc 79.84, Est GFR (MDRD) Af Amer 117, Est GFR (MDRD) Non-Af 97, BUN/Creatinine Ratio 18.5, Glucose 113 H, Calcium 8.9, Total Bilirubin 0.40, AST 13 L, ALT 12 L, Alkaline Phosphatase 74, Troponin I 0.038, Total Protein 6.2 L, Albumin 3.3, Globulin 2.9, Albumin/Globulin Ratio 1.1, Lipase 48 L 04/11/19 16:36: Lactic Acid 2.2 H* Assessment/Plan All Active Problems (Last Updated 03/17/19 @ 17:47 by Federico Holt MD) Hypotension (Acute) Anemia (Acute) 1. GI bleed -At this point given 2 normal EGDs and 2 normal colonoscopies he likely has an AVM -Plan will be to transfuse 2 units -The case was discussed with general surgery who felt that at this time given that he has had 4 scopes, he would not benefit from another one unless he is actively bleeding -Per the , they have started him on iron capsules at home which can also be why his stool is somewhat dark. -This point he likely needs a capsule endoscopy which cannot be done here in [place] -We will continue with p.o. iron as well as Protonix, will add vitamin C to his regimen 2. Chronic A. fib -At this point he is too high of a risk for bleeding compared to the risk of stroke given that his chads score is a 1 -We will continue to monitor DVT: SCDs Code Visit OBSV E&M: 29897 Initial observation care L2
[2019-04-11 20:59] LABS: Reflex Lactate? Y
[2019-04-11] MEDS: Pantoprazole Sodium 40 MG Tablet PO (21:52)
[2019-04-11 22:23] LABS: Lactic Acid 0.9 mmol/L (0.4-1.9)
[2019-04-12] VITALS (11 sets, daily range): BP systolic 114–137; BP diastolic 59–79; PULSE 65–86; RESP 16–18; TEMP 36.4–37.1; O2SAT 97–100
[2019-04-12] MEDS: 0.9% Saline Lock 10 ML Syringe IV (00:10)
[2019-04-12] MEDS: Acetaminophen 325 MG Tablet 650 MG PO (05:58)
[2019-04-12 06:40] LABS: Absolute Neutrophil Count 3.3 X10^3/uL (2.0-7.7); Basophil# 0.04 X10^3/uL; Basophil% 0.9 % (0-1); Eosinophil# 0.12 X10^3/uL; Eosinophils% 2.6 % (0-5); Hematocrit 24.2 % (40-54); Hemoglobin 7.2 g/dL (13.0-16.5); Lymphocyte % 13.2 % (19-41); Mean Corp Hgb Conc 29.8 g/dL (32-36); Mean Corpuscular Hgb 25.4 pg (27.0-32.0); Mean Corpuscular Volume 85.2 fL (80-94); Mean Platelet Vol. 9.6 fl (6.2-12.0); Monocyte# 0.45 X10^3/uL; Monocyte% 9.9 % (0-10); NRBC Flagged by Analyzer 0 % (0-5); Neutrophil # 3.33 X10^3/uL (2.7-7.7); POSITIVE DIFFERENTIAL YES; Platelet Count 222 K/mm3 (150-450); RBC Distribution Width CV 16.2 % (11.6-14.6); RBC Distribution Width SD 50.9 fl (35.1-43.9); Red Blood Count 2.84 M/mm3 (4.6-6.2); White Blood Count 4.6 K/mm3 (4.4-11.0)
[2019-04-12 06:47] LABS: Differential Indicated SCAN CRITERIA MET
[2019-04-12 07:00] LABS: Anion Gap 7 (5-15); BUN 12 mg/dL (7-18); Calcium,Total 8.5 mg/dL (8.5-10.1); Chloride 112 mmol/L (98-107); Creatinine, Serum 0.67 mg/dL (0.70-1.30); EST Glomerular Filtration Rate 122 mL/min (>60); Est Glom Filt Rate - Afr Amer 148 mL/min (>60); Estimated Creatinine Clearance 64.67 ml/min; Glucose 98 mg/dL (74-106); Potassium 3.9 mmol/L (3.5-5.1); Sodium Level 142 mmol/L (136-145)
[2019-04-12] MEDS: Pantoprazole Sodium 40 MG Tablet PO (07:52)
[2019-04-12] MEDS: Ferrous Sulfate 325 MG Tablet PO ×2 (12:29→16:34)
[2019-04-12] MEDS: Ascorbic Acid 500 MG Tablet 1000 MG PO ×2 (12:29→16:34)
--- NOTE | 2019-04-12 17:30 | DCINST_ITS ---
- Discharge Diagnoses Current Active Problems: Current Active and Chronic Problems (Last Updated 03/17/19 @ 17:47 by Federico Holt MD) Anemia (Acute) Abdominal pain (Acute) You will use the following diet at home:: No restrictions Your liquids should be the consistency of: Regular/Thin Discharge Activity: Return to Normal Activity Weight Bearing Status: Full weight bearing Allergies/Adverse Reactions: Allergies rofecoxib [From Vioxx] Adverse Reaction (Severe, Verified 04/11/19 16:20) Mouth sores tetanus immune globulin Adverse Reaction (Severe, Verified 04/11/19 16:20) Hypotension, diaphresis Medications to take at Discharge Acetaminophen [Tylenol Arthritis] 650 mg PO DAILY PRN PRN 03/17/19 Pantoprazole Sodium 40 mg PO BID 04/11/19 Acetaminophen [Tylenol Tablet] 650 mg PO Q6H PRN PRN tablet 04/12/19 Primary Care Physician: Garett Castaneda MD [Primary Care Provider] - Please follow up with your Primary Care Physician in: next week for repeat CBC Test Results: Test results from this visit will be discussed in further detail at your follow- up appointment, if applicable.
--- NOTE | 2019-04-12 17:55 | PCM.DC.SUM ---
Discharge Date and Diagnosis - Problem List Patient Problems: Active and Suspected Problems (Last Updated 03/17/19 @ 17:47 by Federico Holt MD) Anemia (Acute) Abdominal pain (Acute) Date of Admission: 04/11/19 Date of Discharge: 04/12/19 - Primary Discharge Diagnosis Active and Suspected Problems (Last Updated 03/17/19 @ 17:47 by Federico Holt MD) #1 acute on chronic blood loss anemia secondary to suspected GI bleed requiring blood transfusion #2 chronic A. 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 Patient's hemoglobin was noted to be 5.8 and he was sent to the emergency room for evaluation. Patient has a history of anemia which has been worked up with endoscopies multiple times without finding the origin of the anemia, it is felt that the patient has occult GI bleeding from a source that has not been identified. Patient is due to follow-up with gastroenterology in [facility] in the near future for further testing (capsule endoscopy). Work-up in the ER included a Hemoccult on the patient's stool which was positive, patient's hemoglobin was 5.7, chemistry profile was remarkable for a lactic acid of 2.2. Patient was admitted to [place] [id number], he was transfused a total of 4 units of packed red blood cells, there was no active bright red rectal bleeding noted during his hospital stay. On 04/12/2019, patient was seen and examined: On examination he appeared in good health and spirits. Vital signs as documented. Skin warm and dry and without overt rashes. Neck without JVD. Lungs clear. Heart exam notable for irregular rhythm. Abdomen unremarkable and without evidence of organomegaly, masses, or abdominal aortic enlargement. Extremities nonedematous. Neuro: Cranial nerves II through XII are grossly intact, no focal motor deficits were noted, sensation to light touch and pinprick intact. Psych: Patient is alert and oriented x3, he does not appear anxious or depressed On 04/12/2019, patient was seen and examined and felt to be in stable condition for discharge home, he was instructed to see his physician next week for repeat CBC. Patient's hemoglobin at the time of discharge was 10 Patient Problems: Active and Suspected Problems (Last Updated 03/17/19 @ 17:47 by Federico Holt MD) Anemia (Acute) Abdominal pain (Acute) - Physical Exam Vitals/I&O's: Vital Signs Temp Pulse Resp BP Pulse Ox 98.0 F 82 18 127/72 H 97 04/12/19 16:33 04/12/19 16:33 04/12/19 16:33 04/12/19 16:33 04/12/19 16:33 Oxygen Delivery Method Room Air Weight: 83.597 kg Body Mass Index (BMI) 25.0 Intake and Output for Last 24 Hours 04/10/19 04/11/19 04/12/19 23:59 23:59 23:59 Intake Total 1010 / 1010 2000 / 2000 Output Total 875 / 875 Balance 1010 / 1010 1125 / 1125 Microbiology Past 72 Hours 04/11/19 16:10 Stool Stool Occult Blood (SABINO) - Final Occult Blood Positive Laboratory Results 04/11/19 16:35: Blood Type A POSITIVE, Antibody Screen NEGATIVE, Crossmatch See Detail 04/11/19 16:35: Crossmatch See Detail 04/11/19 21:47: Lactic Acid 0.9 04/12/19 06:22: WBC 4.6, RBC 2.84 L, Hgb 7.2 L, Hct 24.2 L, MCV 85.2, MCH 25.4 L, MCHC 29.8 L, RDW Std Deviation 50.9 H, RDW Coeff of Mariana 16.2 H, Plt Count 222, MPV 9.6, Immature Gran % (Auto) 0.400, Neut % (Auto) 73.0 H, Lymph % (Auto) 13.2 L, [place] % (Auto) 9.9, Eos % (Auto) 2.6, Baso % (Auto) 0.9, Absolute Neuts (auto) 3.3, Absolute Lymphs (auto) 0.60 L, Nucleated RBC % 0, Differential Comment 04/12/19 06:22: Sodium 142, Potassium 3.9, Chloride 112 H, Carbon Dioxide 23.0, Anion Gap 7, BUN 12, Creatinine 0.67 L, Estim Creat Clear Calc 64.67, Est GFR (MDRD) Af Amer 148, Est GFR (MDRD) Non-Af 122, BUN/Creatinine Ratio 18.0, Glucose 98, Calcium 8.5 04/12/19 17:15: Hgb 10.0 L Current Medications Acetaminophen (Tylenol) 650 mg PO Q6H PRN PRN PRN Reason: Pain Score 4-10/10 Last Admin: 04/12/19 05:58 Dose: 650 mg Documented by: Ascorbic Acid (Vitamin C) 1,000 mg PO 1200,1700 [facility] Last Admin: 04/12/19 16:34 Dose: 1,000 mg Documented by: Ferrous Sulfate (Ferrous Sulfate) 325 mg PO 1200,1700 [facility] Last Admin: 04/12/19 16:34 Dose: 325 mg Documented by: Nutritional Formula (Lactose Free) (Ensure Enlive) 120 ml PO 4X/DAY [facility] Last Admin: 04/12/19 16:35 Dose: 120 ml Documented by: Pantoprazole Sodium (Protonix) 40 mg PO BID [facility] Last Admin: 04/12/19 07:52 Dose: 40 mg Documented by: Sodium Chloride () 10 - 40 ml IV UD PRN PRN Reason: SALINE FLUSH Last Admin: 04/12/19 00:10 Dose: 10 ml Documented by: Discharge Activity: Return to Normal Activity Weight Bearing Status: Full weight bearing Home Medications: Medications to take at Discharge Acetaminophen [Tylenol Arthritis] 650 mg PO DAILY PRN PRN 03/17/19 Pantoprazole Sodium 40 mg PO BID 04/11/19 Acetaminophen [Tylenol Tablet] 650 mg PO Q6H PRN PRN tab 04/12/19 Primary Care Physician: Castaneda,Garett, MD [Primary Care Provider] - Please follow up with your Primary Care Physician in: next week for repeat CBC Disposition: Home Minutes spent on discharge:: 30 Patient Condition:: Stable Medical Necessity - Tobacco Use Smoking Status: Never smoker Meaningful Use Info Meaningful Use Diagnoses (Choose all that apply): None applicable Code Visit Inpatient E&M: 31201 Disch Hosp
[2019-04-14 13:38] LABS: Pathologist Review Reviewed
--- NOTE | 2019-04-14 15:31 | CASEMGMT ---
GILMAR CM DC PHONE CALL DC DATE: 04.12.19 DC Disposition: Home Diagnosis on Discharge: anemia LACE/STRATA: 01/16 Attempted call to home phone. No answer and no message machine with name identifier. Tracy IRVIN RN ACM
== END 2019-04-12 17:55 | disposition home or self-care (01) | DRG 812 ==
LOC: ED 18:07 → MS3 19:09
PROVIDERS: Admitting Provider Family Medicine; Emergency Provider Emergency Medicine; Family Provider Family Medicine; PCP Family Medicine; Visit Provider Internal Medicine
DX: D62 Acute posthemorrhagic anemia (principal); I48.20 Chronic atrial fibrillation, unspecified; K92.2 Gastrointestinal hemorrhage, unspecified; I42.9 Cardiomyopathy, unspecified; I71.2 Thoracic aortic aneurysm, without rupture; Z85.46 Personal history of malignant neoplasm of prostate; I10 Essential (primary) hypertension; I37.1 Nonrheumatic pulmonary valve insufficiency; I36.1 Nonrheumatic tricuspid (valve) insufficiency; I34.0 Nonrheumatic mitral (valve) insufficiency; I35.1 Nonrheumatic aortic (valve) insufficiency; I73.00 Raynaud's syndrome without gangrene; M06.9 Rheumatoid arthritis, unspecified
CPT/HCPCS: 36415; 71045; 74177; 80048; 80053; 82274; 83605; 83690; 84484; 85018; 85025; 85610; 85730; 86850; 86900; 86901; 86920; 86922; 93005; 97802; 99285; J7040; P9016; Q9967; A4216

== ENCOUNTER → 2019-04-14 16:36 | Outpatient (CLI) | payer MEDICARE, SELFPAY ==
[2019-04-11 19:44] VITALS: BMI 25.0
[2019-04-14 18:02] LABS: Absolute Lymphocyte Count 0.79 X10^3/uL (0.83-4.51); Absolute Neutrophil Count 4.3 X10^3/uL (2.0-7.7); Basophil# 0.06 X10^3/uL; Eosinophils% 3.4 % (0-5); Hematocrit 32.7 % (40-54); Hemoglobin 10.1 g/dL (13.0-16.5); Lymphocyte # 0.79 X10^3/ul (4.0); Lymphocyte % 13.2 % (19-41); Mean Corp Hgb Conc 30.9 g/dL (32-36); Mean Corpuscular Hgb 27.2 pg (27.0-32.0); Mean Corpuscular Volume 88.1 fL (80-94); Monocyte# 0.64 X10^3/uL; Monocyte% 10.7 % (0-10); NRBC Flagged by Analyzer 0 % (0-5); Neutrophil # 4.25 X10^3/uL (2.7-7.7); Neutrophil % 71.2 % (47-70); Platelet Count 215 K/mm3 (150-450); RBC Distribution Width CV 16.9 % (11.6-14.6); Red Blood Count 3.71 M/mm3 (4.6-6.2)
== END ==
PROVIDERS: Family Provider Family Medicine; PCP Family Medicine; Visit Provider Family Medicine
DX: K92.2 Gastrointestinal hemorrhage, unspecified (principal)
CPT/HCPCS: 36415; 85025

== ENCOUNTER → 2019-04-18 08:55 | Outpatient (CLI) | payer MEDICARE, SELFPAY ==
[2019-04-11 19:44] VITALS: BMI 25.0
[2019-04-18 10:02] LABS: Absolute Lymphocyte Count 0.65 X10^3/uL (0.83-4.51); Absolute Neutrophil Count 3.3 X10^3/uL (2.0-7.7); Basophil# 0.07 X10^3/uL; Basophil% 1.5 % (0-1); Eosinophil# 0.27 X10^3/uL; Eosinophils% 5.6 % (0-5); Hematocrit 30.8 % (40-54); Hemoglobin 9.1 g/dL (13.0-16.5); Lymphocyte # 0.65 X10^3/ul (4.0); Lymphocyte % 13.5 % (19-41); Mean Corp Hgb Conc 29.5 g/dL (32-36); Mean Corpuscular Hgb 27.2 pg (27.0-32.0); Mean Corpuscular Volume 91.9 fL (80-94); Mean Platelet Vol. 10.4 fl (6.2-12.0); Monocyte# 0.46 X10^3/uL; Monocyte% 9.6 % (0-10); NRBC Flagged by Analyzer 0 % (0-5); Neutrophil # 3.33 X10^3/uL (2.7-7.7); Neutrophil % 69.4 % (47-70); Platelet Count 173 K/mm3 (150-450); RBC Distribution Width CV 18.5 % (11.6-14.6); Red Blood Count 3.35 M/mm3 (4.6-6.2); White Blood Count 4.8 K/mm3 (4.4-11.0)
== END ==
PROVIDERS: Family Provider Family Medicine; PCP Family Medicine; Referring Provider Family Medicine; Visit Provider Family Medicine
DX: K92.2 Gastrointestinal hemorrhage, unspecified (principal)
CPT/HCPCS: 36415; 85025

== ENCOUNTER 2019-04-18 11:32 | Emergency (ER) | payer MEDICARE, SELFPAY ==
[2019-04-11 19:44] VITALS: BMI 25.0
[2019-04-18 11:33] VITALS: BP 129/71; PULSE 64; RESP 18; TEMP 36.6; O2SAT 95; BMI 25.7
--- NOTE | 2019-04-18 12:41 | ED.VIS.GEN ---
History of Present Illness Chief Complaint: Abn Labs Informant: Patient Narrative: Patient has a history of chronic GI bleed. Patient was admitted last weekend for hemoglobin of 5.7. He received 4 units of RBCs. Patient's hemoglobin at time of discharge was 10.0. He was rechecked 4 days ago and hemoglobin was 10.1. Repeat today is 9.1. Family presents to the ER from Dr. Albrecht's office believing they need transfusion and admission. Patient feels generally weak. He is currently awaiting capsule endoscopy from a GI physician in [place]. 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 (11) Raynauds syndrome Status: Chronic (12) Rheumatoid arthritis Status: Chronic Past Medical History - Allergies and Home Meds Allergies/Adverse Reactions: Allergies rofecoxib [From Vioxx] Adverse Reaction (Severe, Verified 04/18/19 11:35) Mouth sores tetanus immune globulin Adverse Reaction (Severe, Verified 04/18/19 11:35) Hypotension, diaphresis Primary Care Physician: Paula Albrecht MD [Primary Care Provider] - Prior records reviewed: Yes Surgical History: herniorrhaphy, total knee arthroplasty, - Lives: Spouse/ Significant Other Smoking Status: Never smoker - Family History Maternal Family History: Family History (Last Reviewed 04/02/18 @ 13:56 by Marcos Ruffin MD) Sister Hypertension Father Cancer Mother No problems noted. Family History: Reports: No pertinent history Paternal Family History: Family History (Last Reviewed 04/02/18 @ 13:56 by Marcos Ruffin MD) Sister Hypertension Father Cancer Mother No problems noted. Family History: Reports: No pertinent history Review of Systems General: Denies: Chills, Fever Eyes: Denies: Visual changes - bilaterally ENT: Denies: Bilateral ear pain Cardiovascular: Denies: Chest pain Respiratory: Denies: Dyspnea, Cough Gastrointestinal: Reports: - - Continued dark stools. Denies: Abdominal pain Skin: Denies: Rash Neurological: Reports: Weakness - Generalized weakness. Denies: Headache Physical Exam Vital Signs/Narrative: Vital Signs Temp Pulse Resp BP Pulse Ox 04/18/19 11:33 98 F 64 18 129/71 H 95 Inital Vital Signs reviewed: Yes General: Well nourished, Well developed Head: Normocephalic ENT: Moist mucous membranes Neck: Supple Cardiovascular: Regular rate, Regular rhythm Respiratory: No distress, CTA bilaterally Abdomen: Soft, Nontender Skin: Normal color Neurological: Alert, Oriented x3 Psychological: Normal affect Diagnostic/Tx/Re-eval - Medical Decision Making Patient had lab work this morning that revealed a hemoglobin of 9.1 and hematocrit of 30.8. I spoke with Dr. Albrecht, the patient's primary care physician. She agrees he does not need a blood transfusion at this time. Patient is to have his blood counts rechecked on Sunday or Sunday. This is been discussed with patient and family at bedside. ED Disposition - Plan for ED Patient: Disposition: Home or Assisted Living Diagnosis: Chronic anemia Instructions: ANEMIA, Type Not Specified (Adult) Referrals: Paula Albrecht MD [Primary Care Provider] - Additional Instructions: Have bloodwork rechecked on Sunday or Sunday.
== END 2019-04-18 12:51 | disposition home or self-care (01) ==
PROVIDERS: Emergency Provider Emergency Medicine; Family Provider Family Medicine; PCP Family Medicine
DX: D64.9 Anemia, unspecified (principal); E78.5 Hyperlipidemia, unspecified; I10 Essential (primary) hypertension; I42.9 Cardiomyopathy, unspecified; I48.91 Unspecified atrial fibrillation; M06.9 Rheumatoid arthritis, unspecified; Z82.49 Family history of ischemic heart disease and other diseases of the circulatory system; Z85.46 Personal history of malignant neoplasm of prostate; I08.3 Combined rheumatic disorders of mitral, aortic and tricuspid valves; I73.00 Raynaud's syndrome without gangrene
CPT/HCPCS: 36415; 85025; 99282; A4216

== ENCOUNTER → 2019-04-29 09:28 | Outpatient (CLI) | payer MEDICARE, SELFPAY ==
[2019-04-18 11:33] VITALS: BMI 25.7
[2019-04-29 10:51] LABS: Absolute Lymphocyte Count 0.54 X10^3/uL (0.83-4.51); Absolute Neutrophil Count 2.9 X10^3/uL (2.0-7.7); Basophil# 0.06 X10^3/uL; Basophil% 1.5 % (0-1); Eosinophil# 0.12 X10^3/uL; Hematocrit 23.6 % (40-54); Lymphocyte # 0.54 X10^3/ul (4.0); Lymphocyte % 13.3 % (19-41); Mean Corp Hgb Conc 29.7 g/dL (32-36); Mean Corpuscular Hgb 26.8 pg (27.0-32.0); Mean Corpuscular Volume 90.4 fL (80-94); Mean Platelet Vol. 9.8 fl (6.2-12.0); Monocyte# 0.44 X10^3/uL; Monocyte% 10.9 % (0-10); NRBC Flagged by Analyzer 0 % (0-5); Neutrophil # 2.87 X10^3/uL (2.7-7.7); Neutrophil % 70.8 % (47-70); POSITIVE DIFFERENTIAL YES; Platelet Count 346 K/mm3 (150-450); RBC Distribution Width CV 17.5 % (11.6-14.6); RBC Distribution Width SD 58.6 fl (35.1-43.9); Red Blood Count 2.61 M/mm3 (4.6-6.2); White Blood Count 4.1 K/mm3 (4.4-11.0)
[2019-04-29 11:06] LABS: Differential Indicated SCAN CRITERIA MET
[2019-04-30 10:34] LABS: Pathologist Review Reviewed
== END ==
LOC: LAB.FUTURE 09:30 → LAB 09:34
PROVIDERS: Family Provider Family Medicine; PCP Family Medicine; Referring Provider Family Medicine; Visit Provider Family Medicine
DX: D64.9 Anemia, unspecified (principal); K92.2 Gastrointestinal hemorrhage, unspecified
CPT/HCPCS: 36415; 85025

== ENCOUNTER → 2019-05-01 09:17 | Outpatient (CLI) | payer MEDICARE, SELFPAY ==
[2019-04-18 11:33] VITALS: BMI 25.7
[2019-05-01] VITALS (7 sets, daily range): BP systolic 97–125; BP diastolic 58–65; PULSE 65–93; RESP 16; TEMP 35.9–36.4; O2SAT 93–95; BMI 25.0
[2019-05-01 10:05] LABS: Hematocrit 22.9 % (40-54); Hemoglobin 6.7 g/dL (13.0-16.5)
[2019-05-01] MEDS: Acetaminophen 325 MG Tablet 650 MG PO (11:52)
[2019-05-01] MEDS: Furosemide 20 MG/2 ML VIAL IV (14:35)
== END ==
PROVIDERS: PCP Family Medicine; Referring Provider Family Medicine; Visit Provider Family Medicine
DX: K92.2 Gastrointestinal hemorrhage, unspecified (principal)
CPT/HCPCS: 36415; 36430; 85014; 85018; 86850; 86900; 86901; 86920; 86922; J7040; P9016; A4216; J1940

== ENCOUNTER 2019-05-10 08:42 | Outpatient (CLI) | payer MEDICARE, SELFPAY ==
[2019-05-06 10:59] VITALS: BMI 25.6
[2019-05-10] VITALS (9 sets, daily range): BP systolic 120–133; BP diastolic 65–80; PULSE 55–88; RESP 16–18; TEMP 36.4–36.7; O2SAT 98–100
--- NOTE | 2019-05-10 09:00 | NURSING ---
Patient's very argumentative upon this RN entering the room to greet the patient. states that Dr. Castaneda has messed up 2x already on his outpatient blood orders and she doesn't want that to happen today. I explained the orders to the and the patient is for 2 units of PRBCs with 1 lasix dose between. The then began yelling and was visibly disraught. She states he is supposed to have an iron transfusion as well. This RN verified that the patient dose take iron pills on a regular basis and this was confirmed on the med history. This RN called to Dr. Castaneda's office who confirms the patient is only to have 2 units PRBCs and no iron transfusion. This information was relayed to the patient and the and any further questions regarding iron transfusion were directed to call Dr. Castaneda's office
[2019-05-10] MEDS: Acetaminophen 325 MG Tablet 650 MG PO (09:54)
[2019-05-10] MEDS: 0.9% Saline Lock 10 ML Syringe IV ×2 (09:54→12:34)
--- NOTE | 2019-05-10 10:10 | NURSING ---
Prior to start of blood administration patient's heart and lung sounds assessed. Heart rate irregular. Patient confirms he has afib and does not take medication on a regular basis for the afib. Lungs clear in all vital.
[2019-05-10] MEDS: Furosemide 20 MG/2 ML VIAL IV (12:34)
--- NOTE | 2019-05-10 13:15 | NURSING ---
Patient heart rate 34-38 and maintained for appx 2 minutes. Denies symptoms. Heart rate then up into the 50-60 before back into the 40s. Maintained in 40s for appx 4 minutes before returning to the 70s. Heart rate irregular upon auscultation. Heart rate now in the 90s. This RN remains at bedside.
[2019-05-10 16:56] LABS: Hematocrit 24.7 % (40-54); Hemoglobin 7.5 g/dL (13.0-16.5)
== END 2019-05-10 16:40 | disposition home or self-care (01) ==
LOC: MEDOUTP 08:42 → MS3 08:43
PROVIDERS: PCP Family Medicine; Referring Provider Family Medicine; Visit Provider Family Medicine
DX: K92.2 Gastrointestinal hemorrhage, unspecified (principal); D64.9 Anemia, unspecified
CPT/HCPCS: 36415; 36430; 85014; 85018; 86850; 86900; 86901; 86920; 86922; J7040; P9016; P9040; A4216; J1940

== ENCOUNTER → 2019-05-14 14:11 | Outpatient (CLI) | payer MEDICARE, SELFPAY ==
[2019-05-06 10:59] VITALS: BMI 25.6
[2019-05-14 15:15] LABS: Absolute Lymphocyte Count 0.65 X10^3/uL (0.83-4.51); Absolute Neutrophil Count 3.6 X10^3/uL (2.0-7.7); Basophil# 0.05 X10^3/uL; Eosinophil# 0.13 X10^3/uL; Eosinophils% 2.7 % (0-5); Hematocrit 24.3 % (40-54); Hemoglobin 7.1 g/dL (13.0-16.5); Lymphocyte # 0.65 X10^3/ul (4.0); Lymphocyte % 13.5 % (19-41); Mean Corp Hgb Conc 29.2 g/dL (32-36); Mean Corpuscular Hgb 27.4 pg (27.0-32.0); Mean Corpuscular Volume 93.8 fL (80-94); Mean Platelet Vol. 10.2 fl (6.2-12.0); Monocyte# 0.44 X10^3/uL; Monocyte% 9.1 % (0-10); NRBC Flagged by Analyzer 0 % (0-5); Neutrophil # 3.55 X10^3/uL (2.7-7.7); Neutrophil % 73.5 % (47-70); Platelet Count 216 K/mm3 (150-450); RBC Distribution Width CV 17.8 % (11.6-14.6); RBC Distribution Width SD 60.6 fl (35.1-43.9); Red Blood Count 2.59 M/mm3 (4.6-6.2); White Blood Count 4.8 K/mm3 (4.4-11.0)
[2019-05-14 15:42] LABS: ALB/GLOB Ratio 1.1 RATIO (0.9-2.4); AST(SGOT) 12 U/L (15-37); Alanine Aminotransfer ALT/SGPT 10 U/L (16-61); Albumin, Serum 2.9 g/dL (3.2-5.0); Alkaline Phosphatase 60 U/L (45-117); Anion Gap 4 (5-15); BUN 15 mg/dL (7-18); Calcium,Total 8.5 mg/dL (8.5-10.1); Chloride 112 mmol/L (98-107); Creatinine, Serum 0.68 mg/dL (0.70-1.30); EST Glomerular Filtration Rate 119 mL/min (>60); Est Glom Filt Rate - Afr Amer 144 mL/min (>60); Globulin 2.7 g/dL (2.2-4.2); Glucose 108 mg/dL (74-106); Magnesium 2.3 mg/dL (1.6-2.6); Potassium 3.8 mmol/L (3.5-5.1); Protein, Total 5.6 g/dL (6.4-8.2); Sodium Level 142 mmol/L (136-145)
== END ==
PROVIDERS: PCP Family Medicine; Referring Provider Family Medicine; Visit Provider Family Medicine
DX: D50.0 Iron deficiency anemia secondary to blood loss (chronic) (principal)
CPT/HCPCS: 36415; 80053; 83735; 85025

== ENCOUNTER 2019-05-15 09:53 | Outpatient (RCR) | payer MEDICARE, SELFPAY ==
[2019-05-06 08:47] VITALS: BMI 25.0
[2019-05-06 10:58] LABS: Hematocrit 25.9 % (40-54); Hemoglobin 7.7 g/dL (13.0-16.5)
[2019-05-08 13:22] LABS: Ferritin 26 ng/mL (26-388); Iron 25 ug/dL (65-175); Iron Binding Capacity,Total 336 ug/dL (250-450)
[2019-05-08 13:43] LABS: Hematocrit 23.4 % (40-54); Hemoglobin 6.8 g/dL (13.0-16.5); Reticulocyte Count 5.87 % (0.5-1.5)
[2019-05-08 13:44] LABS: Platelet Count 207 K/mm3 (150-450); RET-HE 23.3 pg (30-35)
[2019-05-15 10:10] LABS: Absolute Lymphocyte Count 0.58 X10^3/uL (0.83-4.51); Absolute Neutrophil Count 3.3 X10^3/uL (2.0-7.7); Basophil# 0.05 X10^3/uL; Basophil% 1.1 % (0-1); Eosinophil# 0.19 X10^3/uL; Eosinophils% 4.1 % (0-5); Hematocrit 24.5 % (40-54); Hemoglobin 7.3 g/dL (13.0-16.5); Lymphocyte # 0.58 X10^3/ul (4.0); Lymphocyte % 12.7 % (19-41); Mean Corp Hgb Conc 29.8 g/dL (32-36); Mean Corpuscular Hgb 28.1 pg (27.0-32.0); Mean Corpuscular Volume 94.2 fL (80-94); Mean Platelet Vol. 9.8 fl (6.2-12.0); Monocyte# 0.44 X10^3/uL; Monocyte% 9.6 % (0-10); NRBC Flagged by Analyzer 0 % (0-5); Neutrophil % 72.1 % (47-70); POSITIVE DIFFERENTIAL YES; Platelet Count 230 K/mm3 (150-450); RBC Distribution Width CV 17.8 % (11.6-14.6); RBC Distribution Width SD 60.2 fl (35.1-43.9); White Blood Count 4.6 K/mm3 (4.4-11.0)
[2019-05-15 10:14] LABS: Differential Indicated SCAN CRITERIA MET
[2019-05-15 10:24] LABS: ALB/GLOB Ratio 1.1 RATIO (0.9-2.4); AST(SGOT) 12 U/L (15-37); Alanine Aminotransfer ALT/SGPT 10 U/L (16-61); Albumin, Serum 3.2 g/dL (3.2-5.0); Alkaline Phosphatase 66 U/L (45-117); Anion Gap 6 (5-15); BUN 15 mg/dL (7-18); Calcium,Total 8.7 mg/dL (8.5-10.1); Chloride 110 mmol/L (98-107); Creatinine, Serum 0.75 mg/dL (0.70-1.30); EST Glomerular Filtration Rate 106 mL/min (>60); Est Glom Filt Rate - Afr Amer 129 mL/min (>60); Globulin 2.8 g/dL (2.2-4.2); Glucose 114 mg/dL (74-106); Magnesium 2.2 mg/dL (1.6-2.6); Potassium 3.9 mmol/L (3.5-5.1); Sodium Level 141 mmol/L (136-145)
[2019-05-15 10:40] LABS: Anisocytosis 1+; Hypochromasia 2+
== END 2019-05-15 18:00 | disposition home or self-care (01) ==
LOC: LAB 09:53
PROVIDERS: PCP Family Medicine; Referring Provider Family Medicine; Visit Provider Family Medicine
DX: K92.2 Gastrointestinal hemorrhage, unspecified (principal)
CPT/HCPCS: 36415; 80053; 82728; 83540; 83550; 83735; 85014; 85018; 85025; 85045; 86850; 86900; 86901; 86920; 86922

== ENCOUNTER → 2019-05-16 07:25 | Outpatient (CLI) | payer MEDICARE, SELFPAY ==
[2019-05-06 10:59] VITALS: BMI 25.6
[2019-05-16] VITALS (14 sets, daily range): BP systolic 102–136; BP diastolic 52–85; PULSE 57–93; RESP 16–18; TEMP 35.7–36.4; O2SAT 98–100; BMI 25.0
[2019-05-16] MEDS: Acetaminophen 325 MG Tablet 650 MG PO (07:55)
[2019-05-16] MEDS: Furosemide 20 MG/2 ML VIAL IV ×2 (13:01→15:25)
== END ==
PROVIDERS: PCP Family Medicine; Referring Provider Family Medicine; Visit Provider Family Medicine
DX: K92.2 Gastrointestinal hemorrhage, unspecified (principal); D50.9 Iron deficiency anemia, unspecified; K63.3 Ulcer of intestine; Z87.19 Personal history of other diseases of the digestive system
CPT/HCPCS: 96365; 36430; 86850; 86900; 86901; 86920; 86922; J1756; J7040; J7050; P9016; A4216; J1940

== ENCOUNTER 2019-06-04 11:37 | Outpatient (RCR) | payer MEDICARE, SELFPAY ==
[2019-05-16 07:55] VITALS: BMI 25.0
[2019-05-26 11:14] LABS: Hematocrit 31.4 % (40-54); Hemoglobin 9.3 g/dL (13.0-16.5)
[2019-06-04 12:36] LABS: Hematocrit 26.7 % (40-54); Hemoglobin 7.7 g/dL (13.0-16.5)
== END 2019-06-04 18:00 | disposition home or self-care (01) ==
LOC: LAB 11:37
PROVIDERS: PCP Family Medicine; Referring Provider Family Medicine; Visit Provider Family Medicine
DX: K92.2 Gastrointestinal hemorrhage, unspecified (principal)
CPT/HCPCS: 36415; 85014; 85018

== ENCOUNTER → 2019-06-06 08:24 | Outpatient (CLI) | payer MEDICARE, SELFPAY ==
[2019-05-16 07:55] VITALS: BMI 25.0
[2019-06-06] VITALS (9 sets, daily range): BP systolic 101–137; BP diastolic 52–76; PULSE 45–95; RESP 16–18; TEMP 36.1–36.7; O2SAT 96–100; BMI 24.8
[2019-06-06] MEDS: Acetaminophen 325 MG Tablet 650 MG PO (08:54)
[2019-06-06] MEDS: Furosemide 20 MG/2 ML VIAL IV (14:09)
== END ==
PROVIDERS: PCP Family Medicine; Referring Provider Family Medicine; Visit Provider Family Medicine
DX: D50.0 Iron deficiency anemia secondary to blood loss (chronic) (principal)
CPT/HCPCS: 36430; 86850; 86900; 86901; 86920; 86922; J7040; P9016; A4216; J1940

== ENCOUNTER → 2019-06-18 09:15 | Outpatient (CLI) | payer MEDICARE, SELFPAY ==
[2019-06-06 08:51] VITALS: BMI 24.8
[2019-06-17 09:47] LABS: Hematocrit 41.3 % (40-54); Hemoglobin 12.2 g/dL (13.0-16.5)
[2019-06-17 10:26] LABS: ALB/GLOB Ratio 1.2 RATIO (0.9-2.4); AST(SGOT) 14 U/L (15-37); Alanine Aminotransfer ALT/SGPT 13 U/L (16-61); Albumin, Serum 3.7 g/dL (3.2-5.0); Alkaline Phosphatase 96 U/L (45-117); Anion Gap 4 (5-15); BUN 17 mg/dL (7-18); BUN/Creat Ratio 17.6 RATIO (10-20); Calcium,Total 9.5 mg/dL (8.5-10.1); Chloride 110 mmol/L (98-107); Creatinine, Serum 0.96 mg/dL (0.70-1.30); EST Glomerular Filtration Rate 79 mL/min (>60); Est Glom Filt Rate - Afr Amer 96 mL/min (>60); Ferritin 21 ng/mL (26-388); Globulin 3.2 g/dL (2.2-4.2); Glucose 95 mg/dL (74-106); Protein, Total 6.9 g/dL (6.4-8.2); Sodium Level 142 mmol/L (136-145)
== END ==
PROVIDERS: PCP Family Medicine; Referring Provider Family Medicine; Visit Provider Family Medicine
DX: K92.2 Gastrointestinal hemorrhage, unspecified (principal); D64.9 Anemia, unspecified
CPT/HCPCS: 36415; 80053; 82728; 85014; 85018

== ENCOUNTER 2019-07-09 10:17 | Outpatient (RCR) | payer MEDICARE, SELFPAY ==
[2019-06-06 08:51] VITALS: BMI 24.8
[2019-06-25 12:12] LABS: Hematocrit 40.2 % (40-54); Hemoglobin 11.9 g/dL (13.0-16.5)
[2019-06-25 16:50] LABS: Mean Platelet Vol. 10.1 fl (6.2-12.0); Platelet Count 280 K/mm3 (150-450); Red Blood Count 4.48 M/mm3 (4.6-6.2); White Blood Count 4.4 K/mm3 (4.4-11.0)
[2019-06-25 17:43] LABS: ALB/GLOB Ratio 1.1 RATIO (0.9-2.4); AST(SGOT) 17 U/L (15-37); Alanine Aminotransfer ALT/SGPT 14 U/L (16-61); Albumin, Serum 3.5 g/dL (3.2-5.0); Alkaline Phosphatase 92 U/L (45-117); Anion Gap 5 (5-15); BUN 14 mg/dL (7-18); BUN/Creat Ratio 16.2 RATIO (10-20); Chloride 107 mmol/L (98-107); Creatinine, Serum 0.86 mg/dL (0.70-1.30); EST Glomerular Filtration Rate 90 mL/min (>60); Est Glom Filt Rate - Afr Amer 109 mL/min (>60); Globulin 3.3 g/dL (2.2-4.2); Glucose 142 mg/dL (74-106); Potassium 3.8 mmol/L (3.5-5.1); Protein, Total 6.8 g/dL (6.4-8.2); Sodium Level 140 mmol/L (136-145)
[2019-07-09 10:35] LABS: Absolute Lymphocyte Count 0.82 X10^3/uL (0.83-4.51); Absolute Neutrophil Count 2.6 X10^3/uL (2.0-7.7); Basophil# 0.07 X10^3/uL; Basophil% 1.7 % (0-1); Eosinophil# 0.26 X10^3/uL; Eosinophils% 6.2 % (0-5); Hematocrit 42.4 % (40-54); Hemoglobin 12.9 g/dL (13.0-16.5); Lymphocyte # 0.82 X10^3/ul (4.0); Lymphocyte % 19.5 % (19-41); Mean Corp Hgb Conc 30.4 g/dL (32-36); Mean Corpuscular Hgb 26.9 pg (27.0-32.0); Mean Corpuscular Volume 88.5 fL (80-94); Mean Platelet Vol. 9.3 fl (6.2-12.0); Monocyte# 0.48 X10^3/uL; Monocyte% 11.4 % (0-10); NRBC Flagged by Analyzer 0 % (0-5); Neutrophil # 2.57 X10^3/uL (2.7-7.7); Platelet Count 210 K/mm3 (150-450); RBC Distribution Width CV 14.1 % (11.6-14.6); RBC Distribution Width SD 45.2 fl (35.1-43.9); Red Blood Count 4.79 M/mm3 (4.6-6.2); White Blood Count 4.2 K/mm3 (4.4-11.0)
[2019-07-09 13:44] LABS: ALB/GLOB Ratio 1.3 RATIO (0.9-2.4); AST(SGOT) 15 U/L (15-37); Alanine Aminotransfer ALT/SGPT 12 U/L (16-61); Albumin, Serum 3.8 g/dL (3.2-5.0); Alkaline Phosphatase 95 U/L (45-117); Anion Gap 7 (5-15); BUN 11 mg/dL (7-18); BUN/Creat Ratio 15.7 RATIO (10-20); Calcium,Total 9.3 mg/dL (8.5-10.1); Chloride 108 mmol/L (98-107); EST Glomerular Filtration Rate 115 mL/min (>60); Est Glom Filt Rate - Afr Amer 139 mL/min (>60); Globulin 2.9 g/dL (2.2-4.2); Glucose 91 mg/dL (74-106); Potassium 4.3 mmol/L (3.5-5.1); Protein, Total 6.7 g/dL (6.4-8.2); Sodium Level 143 mmol/L (136-145)
[2019-07-09 15:12] LABS: Ferritin 25 ng/mL (26-388); Iron 33 ug/dL (65-175)
== END 2019-07-09 18:00 | disposition home or self-care (01) ==
LOC: LAB 10:17
PROVIDERS: PCP Family Medicine; Referring Provider Family Medicine; Visit Provider Family Medicine
DX: K92.2 Gastrointestinal hemorrhage, unspecified (principal); D50.0 Iron deficiency anemia secondary to blood loss (chronic)
CPT/HCPCS: 36415; 80053; 82728; 83540; 85014; 85018; 85025; 85027

== ENCOUNTER 2019-08-29 09:43 | Outpatient (RCR) | payer MEDICARE, SELFPAY ==
[2019-06-06 08:51] VITALS: BMI 24.8
[2019-08-29 11:08] LABS: Hematocrit 41.3 % (40-54); Hemoglobin 13.1 g/dL (13.0-16.5)
[2019-08-29 11:38] LABS: ALB/GLOB Ratio 1.1 RATIO (0.9-2.4); AST(SGOT) 19 U/L (15-37); Alanine Aminotransfer ALT/SGPT 15 U/L (16-61); Albumin, Serum 3.8 g/dL (3.2-5.0); Alkaline Phosphatase 97 U/L (45-117); Anion Gap 7 (5-15); BUN 16 mg/dL (7-18); BUN/Creat Ratio 22.2 RATIO (10-20); Calcium,Total 9.5 mg/dL (8.5-10.1); Chloride 112 mmol/L (98-107); Creatinine, Serum 0.72 mg/dL (0.70-1.30); EST Glomerular Filtration Rate 111 mL/min (>60); Est Glom Filt Rate - Afr Amer 134 mL/min (>60); Globulin 3.4 g/dL (2.2-4.2); Glucose 91 mg/dL (74-106); Potassium 3.7 mmol/L (3.5-5.1); Protein, Total 7.2 g/dL (6.4-8.2); Sodium Level 142 mmol/L (136-145)
[2019-08-29 18:05] LABS: Ferritin 24 ng/mL (26-388)
== END 2019-08-29 18:00 | disposition home or self-care (01) ==
LOC: LAB 09:43
PROVIDERS: PCP Family Medicine; Referring Provider Family Medicine; Visit Provider Family Medicine
DX: K92.2 Gastrointestinal hemorrhage, unspecified (principal)
CPT/HCPCS: 36415; 80053; 82728; 85014; 85018

== ENCOUNTER → 2019-11-20 11:13 | Outpatient (CLI) | payer MEDICARE, SELFPAY ==
[2019-11-20 10:27] VITALS: BMI 25.3
[2019-11-20 12:25] LABS: Absolute Lymphocyte Count 0.89 X10^3/uL (0.83-4.51); Absolute Neutrophil Count 3.6 X10^3/uL (2.0-7.7); Basophil# 0.06 X10^3/uL; Basophil% 1.1 % (0-1); Eosinophil# 0.05 X10^3/uL; Eosinophils% 0.9 % (0-5); Hematocrit 42.6 % (40-54); Hemoglobin 13.6 g/dL (13.0-16.5); Lymphocyte # 0.89 X10^3/ul (4.0); Lymphocyte % 16.7 % (19-41); Mean Corp Hgb Conc 31.9 g/dL (32-36); Mean Corpuscular Hgb 28.6 pg (27.0-32.0); Mean Corpuscular Volume 89.7 fL (80-94); Mean Platelet Vol. 9.5 fl (6.2-12.0); Monocyte# 0.67 X10^3/uL; Monocyte% 12.6 % (0-10); NRBC Flagged by Analyzer 0 % (0-5); Neutrophil # 3.64 X10^3/uL (2.7-7.7); Neutrophil % 68.3 % (47-70); Platelet Count 225 K/mm3 (150-450); RBC Distribution Width CV 14.8 % (11.6-14.6); RBC Distribution Width SD 48.9 fl (35.1-43.9); Red Blood Count 4.75 M/mm3 (4.6-6.2); White Blood Count 5.3 K/mm3 (4.4-11.0)
[2019-11-20 12:55] LABS: Ferritin 85 ng/mL (26-388); Iron 110 ug/dL (65-175); Iron Binding Capacity,Total 346 ug/dL (250-450); PERCENT IRON SATURATION 31.8 % (15.0-55.0)
== END ==
PROVIDERS: PCP Family Medicine; Referring Provider Nurse Practitioner Family; Visit Provider Nurse Practitioner Family
DX: D64.9 Anemia, unspecified (principal); K92.2 Gastrointestinal hemorrhage, unspecified
CPT/HCPCS: 36415; 82728; 83540; 83550; 85025

== ENCOUNTER → 2020-02-18 07:56 | Outpatient (CLI) | payer MEDICARE, SELFPAY ==
[2019-12-16 09:19] VITALS: BMI 24.8
[2020-02-18 08:27] LABS: Absolute Lymphocyte Count 0.92 X10^3/uL (0.83-4.51); Absolute Neutrophil Count 3.5 X10^3/uL (2.0-7.7); Basophil# 0.08 X10^3/uL; Basophil% 1.5 % (0-1); Eosinophil# 0.21 X10^3/uL; Eosinophils% 3.9 % (0-5); Hematocrit 42.9 % (40-54); Hemoglobin 13.3 g/dL (13.0-16.5); Lymphocyte # 0.92 X10^3/ul (4.0); Lymphocyte % 17.2 % (19-41); Mean Corpuscular Hgb 29.6 pg (27.0-32.0); Mean Corpuscular Volume 95.5 fL (80-94); Mean Platelet Vol. 9.1 fl (6.2-12.0); Monocyte# 0.61 X10^3/uL; Monocyte% 11.4 % (0-10); NRBC Flagged by Analyzer 0 % (0-5); Neutrophil # 3.52 X10^3/uL (2.7-7.7); Neutrophil % 65.6 % (47-70); Platelet Count 205 K/mm3 (150-450); RBC Distribution Width CV 14.4 % (11.6-14.6); RBC Distribution Width SD 50.6 fl (35.1-43.9); Red Blood Count 4.49 M/mm3 (4.6-6.2); White Blood Count 5.4 K/mm3 (4.4-11.0)
== END ==
PROVIDERS: PCP Internal Medicine; Referring Provider Internal Medicine; Visit Provider Internal Medicine
DX: D64.9 Anemia, unspecified (principal); K92.2 Gastrointestinal hemorrhage, unspecified; R53.1 Weakness
CPT/HCPCS: 36415; 85025

== ENCOUNTER → 2020-03-15 07:50 | Outpatient (CLI) | payer MEDICARE, SELFPAY ==
[2020-02-19 09:06] VITALS: BMI 26.7
--- NOTE | 2020-03-15 07:53 | ECHOD_ITS ---
Reason For Study: Retinal artery occlusion Procedure This was a 2D Doppler, Color Flow transthoracic echocardiogram. Exam performed in department. Left Ventricle Mildly dilated left ventricle. Mild concentric left ventricular hypertrophy. The estimated ejection fraction is 35 %. There is moderate global hypokinesis of the left ventricle. Right Ventricle Normal RV size. Normal systolic function. Atria Normal left atrium. Normal right atrium. Bubble contrast study negative for right to left interatrial shunt. Mitral Valve Bileaflet diffuse mitral valve thickening. Mild-Moderate (1-2+) eccentric mitral valve insufficiency. Tricuspid Valve Normal tricuspid valve. Mild (1+) tricuspid valve insufficiency. Pulmonary artery systolic pressure is 28 mmHg. Aortic Valve Trisinus/trileaflet aortic valve. Mild focal aortic valve calcification. Mild-Moderate (1-2+) aortic valve insufficiency. Pulmonic Valve Normal pulmonic valve. Great Vessels Mildly dilated aortic root. The pulmonary artery is normal size. Normal inferior vena cava. Pericardium/Pleural No pericardial effusion. Medication 22 gauge I.V. with prn adaptor inserted into right arm. Performed a rapid injection of agitated mix of 9 cc saline and 1cc air to assess for atrial septal defect. MMode/2D Measurements & Calculations LVIDd: 6.3 cm IVSd: 1.3 cm LVOT diam: 2.3 cm LVIDs: 5.6 cm LVPWd: 1.2 cm RVDd: 3.2 cm FS: 10.5 % LVOT area: 4.3 cm2 Ao root diam: 4.3 cm LAV(MOD-bp): 145.9 ml LVAd ap4: 38.4 cm2 LAV(MOD-bp) Indexed: 70.0 ml/m2 EDV(MOD-sp4): 145.1 ml LAV(MOD-sp2): 146.6 ml EDV(sp4-el): 148.2 ml LAV(MOD-sp4): 131.2 ml LVAs ap4: 32.6 cm2 ESV(MOD-sp4): 103.4 ml ESV(sp4-el): 108.2 ml EF(MOD-sp4): 28.7 % EF(sp4-el): 27.0 % SV(MOD-sp4): 41.7 ml SV(sp4-el): 40.0 ml LA A4 area: 33.3 cm2 LA dimension(2D): 3.8 cm RA A4 area: 32.3 cm2 Doppler Measurements & Calculations MV E max luz: 53.4 cm/sec Ao V2 max: 142.3 cm/sec AI max luz: 457.9 cm/sec Ao max P.1 mmHg AI max P.1 mmHg Ao V2 mean: 92.6 cm/sec AI dec slope: 251.3 cm/sec2 Ao mean P.9 mmHg AI P1/2t: 533.7 msec Ao V2 VTI: 20.9 cm STANLEY(I,D): 2.8 cm2 STANLEY(V,D): 2.7 cm2 LV V1 max: 88.1 cm/sec SV(LVOT): 58.6 ml PA V2 max: 57.6 cm/sec LV V1 max P.2 mmHg LV V1 mean P.5 mmHg LV V1 mean: 56.5 cm/sec LV V1 VTI: 13.5 cm TR max luz: 249.2 cm/sec TR max P.9 mmHg Interpretation Summary Mildly dilated left ventricle. The estimated ejection fraction is 35 %. There is moderate global hypokinesis of the left ventricle. Mild concentric left ventricular hypertrophy. Mildly dilated aortic root. Mild-Moderate (1-2+) aortic valve insufficiency. Pulmonary artery systolic pressure is 28 mmHg. Compared to previous study, the left ventricular systolic function has worsened.. Ordering Physician: Neeraj Molina Referring Physician: Yin Sweeney M.D. Performed By: Trinity Hightower RDCS
[2020-03-15 09:50] LABS: Absolute Lymphocyte Count 0.75 X10^3/uL (0.83-4.51); Absolute Neutrophil Count 4.3 X10^3/uL (2.0-7.7); Basophil# 0.06 X10^3/uL; Basophil% 1.1 % (0-1); Eosinophil# 0.07 X10^3/uL; Eosinophils% 1.2 % (0-5); Erythrocyte Sedimentation Rate 12 mm/hr (0-20); Hematocrit 47.5 % (40-54); Hemoglobin 15.2 g/dL (13.0-16.5); Lymphocyte # 0.75 X10^3/ul (4.0); Lymphocyte % 13.2 % (19-41); Mean Corpuscular Hgb 30.3 pg (27.0-32.0); Mean Corpuscular Volume 94.6 fL (80-94); Monocyte% 8.8 % (0-10); NRBC Flagged by Analyzer 0 % (0-5); Neutrophil # 4.27 X10^3/uL (2.7-7.7); Neutrophil % 75.3 % (47-70); Platelet Count 199 K/mm3 (150-450); RBC Distribution Width CV 14.5 % (11.6-14.6); RBC Distribution Width SD 49.6 fl (35.1-43.9); Red Blood Count 5.02 M/mm3 (4.6-6.2); White Blood Count 5.7 K/mm3 (4.4-11.0)
[2020-03-15 10:10] LABS: ALB/GLOB Ratio 1.1 RATIO (0.9-2.4); AST(SGOT) 27 U/L (15-37); Alanine Aminotransfer ALT/SGPT 22 U/L (16-61); Albumin, Serum 3.9 g/dL (3.2-5.0); Alkaline Phosphatase 76 U/L (45-117); Anion Gap 5 (5-15); BUN 21 mg/dL (7-18); BUN/Creat Ratio 23.1 RATIO (10-20); CRP < 2.90 mg/L (0.0-3.0); Calcium,Total 9.4 mg/dL (8.5-10.1); Chloride 108 mmol/L (98-107); Creatinine, Serum 0.91 mg/dL (0.70-1.30); EST Glomerular Filtration Rate 85 mL/min (>60); Est Glom Filt Rate - Afr Amer 103 mL/min (>60); Globulin 3.5 g/dL (2.2-4.2); Glucose 91 mg/dL (74-106); Potassium 4.2 mmol/L (3.5-5.1); Protein, Total 7.4 g/dL (6.4-8.2); Rheumatoid Factor < 10.0 IU/mL (<15); Sodium Level 139 mmol/L (136-145)
[2020-03-15 10:44] LABS: Hepatitis B Surface Antibody Non-Reactive; Hepatitis B Surface Antigen Non-Reactive (Nonreactive); Hepatitis C Antibody Non-Reactive (Nonreactive)
[2020-03-17 16:02] LABS: CCP IgG Antibodies 5 units (0-19)
== END ==
PROVIDERS: Internal Medicine Rheumatology; PCP Internal Medicine; Referring Provider Ophthalmology; Visit Provider Ophthalmology
DX: H34.02 Transient retinal artery occlusion, left eye (principal); H34.232 Retinal artery branch occlusion, left eye; M06.4 Inflammatory polyarthropathy; Z79.899 Other long term (current) drug therapy; M17.0 Bilateral primary osteoarthritis of knee; M19.041 Primary osteoarthritis, right hand; M47.897 Other spondylosis, lumbosacral region; I48.91 Unspecified atrial fibrillation; N40.0 Benign prostatic hyperplasia without lower urinary tract symptoms; Z85.46 Personal history of malignant neoplasm of prostate
CPT/HCPCS: 36415; 80053; 85025; 85652; 86140; 86200; 86431; 86706; 86803; 87340; 93306; A4216

== ENCOUNTER → 2020-05-10 15:10 | Outpatient (CLI) | payer MEDICARE, SELFPAY ==
[2020-02-19 09:06] VITALS: BMI 26.7
[2020-05-10 17:28] LABS: PSA,Total- Diagnostic < 0.01 ng/mL (0.0-4.0)
== END ==
PROVIDERS: PCP Internal Medicine; Referring Provider Urology; Visit Provider Urology
DX: C61 Malignant neoplasm of prostate (principal)
CPT/HCPCS: 36415; 84153

== ENCOUNTER → 2020-06-15 15:05 | Outpatient (CLI) | payer MEDICARE, SELFPAY ==
[2020-02-19 09:06] VITALS: BMI 26.7
[2020-06-15 17:50] LABS: Absolute Lymphocyte Count 0.93 X10^3/uL (0.83-4.51); Absolute Neutrophil Count 3.3 X10^3/uL (2.0-7.7); Basophil# 0.08 X10^3/uL; Basophil% 1.6 % (0-1); Eosinophil# 0.26 X10^3/uL; Eosinophils% 5.2 % (0-5); Hematocrit 42.7 % (40-54); Hemoglobin 13.6 g/dL (13.0-16.5); Lymphocyte # 0.93 X10^3/ul (4.0); Lymphocyte % 18.5 % (19-41); Mean Corp Hgb Conc 31.9 g/dL (32-36); Mean Corpuscular Hgb 28.9 pg (27.0-32.0); Mean Corpuscular Volume 90.9 fL (80-94); Mean Platelet Vol. 9.8 fl (6.2-12.0); Monocyte# 0.43 X10^3/uL; Monocyte% 8.5 % (0-10); NRBC Flagged by Analyzer 0 % (0-5); Neutrophil # 3.33 X10^3/uL (2.7-7.7); Platelet Count 265 K/mm3 (150-450); RBC Distribution Width CV 13.3 % (11.6-14.6); RBC Distribution Width SD 45.1 fl (35.1-43.9)
[2020-06-15 18:21] LABS: AST(SGOT) 23 U/L (15-37); Alanine Aminotransfer ALT/SGPT 21 U/L (16-61); Albumin, Serum 3.7 g/dL (3.2-5.0); Alkaline Phosphatase 111 U/L (45-117); Anion Gap 7 (5-15); BUN 20 mg/dL (7-18); BUN/Creat Ratio 22.4 RATIO (10-20); Calcium,Total 9.4 mg/dL (8.5-10.1); Chloride 107 mmol/L (98-107); Creatinine, Serum 0.89 mg/dL (0.70-1.30); EST Glomerular Filtration Rate 87 mL/min (>60); Est Glom Filt Rate - Afr Amer 105 mL/min (>60); Globulin 3.7 g/dL (2.2-4.2); Glucose 97 mg/dL (74-106); Potassium 3.9 mmol/L (3.5-5.1); Protein, Total 7.4 g/dL (6.4-8.2); Sodium Level 141 mmol/L (136-145)
== END ==
PROVIDERS: PCP Internal Medicine; Referring Provider Internal Medicine Rheumatology; Visit Provider Internal Medicine Rheumatology
DX: M06.4 Inflammatory polyarthropathy (principal); Z79.899 Other long term (current) drug therapy; M17.0 Bilateral primary osteoarthritis of knee; M19.041 Primary osteoarthritis, right hand; M47.897 Other spondylosis, lumbosacral region; I48.91 Unspecified atrial fibrillation; N40.0 Benign prostatic hyperplasia without lower urinary tract symptoms; Z85.46 Personal history of malignant neoplasm of prostate
CPT/HCPCS: 36415; 80053; 85025

== ENCOUNTER → 2020-07-23 09:48 | Outpatient (CLI) | payer MEDICARE, SELFPAY ==
[2020-07-13 10:42] VITALS: BMI 25.4
--- NOTE | 2020-07-23 09:50 | ECHOD_ITS ---
Reason For Study: Afib/Flutter Procedure This was a 2D Doppler, Color Flow transthoracic echocardiogram. Exam performed in department. Left Ventricle Moderately dilated left ventricle. The estimated ejection fraction is 20 %. Diastolic function is indeterminate. There is severe global hypokinesis of the left ventricle. Right Ventricle Normal RV size. Normal systolic function. Atria The left atrium is moderately enlarged. The right atrium is severely enlarged. Mitral Valve Normal mitral valve. Mild-Moderate (1-2+) eccentric mitral valve insufficiency. Tricuspid Valve Normal tricuspid valve. Mild (1+) tricuspid valve insufficiency. Pulmonary artery systolic pressure is 35 mmHg. Aortic Valve Trisinus/trileaflet aortic valve. Mild focal aortic valve calcification. Mild (1+) aortic valve insufficiency. Great Vessels Normal aortic root. The pulmonary artery is normal size. Pericardium/Pleural No pericardial effusion. MMode/2D Measurements & Calculations LVIDd: 6.3 cm IVSd: 1.1 cm LVOT diam: 2.3 cm LVIDs: 5.5 cm LVPWd: 1.5 cm LVOT area: 4.2 cm2 RVDd: 4.0 cm FS: 13.0 % Ao root diam: 5.0 cm LAV(MOD-bp): 150.4 ml LVAd ap4: 48.2 cm2 LA dimension: 5.0 cm LAV(MOD-bp) Indexed: 72.5 ml/m2 EDV(MOD-sp4): 210.6 ml LAV(MOD-sp2): 177.0 ml EDV(sp4-el): 210.1 ml LAV(MOD-sp4): 122.7 ml LVAs ap4: 41.1 cm2 ESV(MOD-sp4): 160.8 ml ESV(sp4-el): 162.3 ml EF(MOD-sp4): 23.7 % EF(sp4-el): 22.8 % SV(MOD-sp4): 49.8 ml SV(sp4-el): 47.8 ml Aortic Valve Planimetry: 2.2 cm2 LA A4 area: 34.2 cm2 RA A4 area: 39.1 cm2 Doppler Measurements & Calculations MV E max luz: 63.4 cm/sec Ao V2 max: 161.8 cm/sec AI max luz: 436.9 cm/sec Ao max P.7 mmHg AI max P.7 mmHg Ao V2 mean: 109.8 cm/sec Ao mean P.5 mmHg AI dec slope: 187.3 cm/sec2 Ao V2 VTI: 26.4 cm AI P1/2t: 683.1 msec STANLEY(I,D): 1.9 cm2 STANLEY(V,D): 2.0 cm2 LV V1 max: 76.2 cm/sec MR max luz: 459.8 cm/sec SV(LVOT): 49.8 ml LV V1 max P.3 mmHg MR max P.6 mmHg LV V1 mean P.3 mmHg MR mean luz: 358.7 cm/sec LV V1 mean: 52.3 cm/sec MR mean P.4 mmHg LV V1 VTI: 11.8 cm MR VTI: 147.0 cm TR max luz: 282.0 cm/sec TR max P.8 mmHg ECHO/Echo Complete Interpretation Summary Moderately dilated left ventricle. The estimated ejection fraction is 20 %. Diastolic function is indeterminate. There is severe global hypokinesis of the left ventricle. The left atrium is moderately enlarged. The right atrium is severely enlarged. Mild-Moderate (1-2+) eccentric mitral valve insufficiency. Pulmonary artery systolic pressure is 35 mmHg. Mild focal aortic valve calcification. Compared to previous study, the left ventricular systolic function has worsened .. Ordering Physician: Marcos Ruffin Referring Physician: Yin Sweeney Performed By: Simeon Neely RCS
== END ==
PROVIDERS: PCP Internal Medicine; Referring Provider Internal Medicine Cardiovascular Disease; Visit Provider Internal Medicine Cardiovascular Disease
DX: I48.11 Longstanding persistent atrial fibrillation (principal)
CPT/HCPCS: 93306

== ENCOUNTER → 2020-07-26 12:53 | Outpatient (CLI) | payer MEDICARE, SELFPAY ==
[2020-07-13 10:42] VITALS: BMI 25.4
[2020-07-26 17:37] LABS: BNP,B-Type NATRIURETIC PEPTIDE 1006.5 pg/mL (0-100)
== END ==
PROVIDERS: PCP Internal Medicine; Referring Provider Internal Medicine Cardiovascular Disease; Visit Provider Internal Medicine Cardiovascular Disease
DX: R06.00 Dyspnea, unspecified (principal)
CPT/HCPCS: 36415; 83880

== ENCOUNTER → 2020-07-27 08:48 | Outpatient (CLI) | payer MEDICARE, SELFPAY ==
[2020-07-13 10:42] VITALS: BMI 25.4
[2020-07-27 10:40] LABS: Anion Gap 9 (5-15); BUN 21 mg/dL (7-18); BUN/Creat Ratio 25.1 RATIO (10-20); Calcium,Total 8.8 mg/dL (8.5-10.1); Chloride 107 mmol/L (98-107); Creatinine, Serum 0.84 mg/dL (0.70-1.30); EST Glomerular Filtration Rate 94 mL/min (>60); Est Glom Filt Rate - Afr Amer 113 mL/min (>60); Glucose 97 mg/dL (74-106); Sodium Level 141 mmol/L (136-145)
== END ==
PROVIDERS: PCP Internal Medicine; Referring Provider Internal Medicine Cardiovascular Disease; Visit Provider Internal Medicine Cardiovascular Disease
DX: R06.00 Dyspnea, unspecified (principal); H34.232 Retinal artery branch occlusion, left eye; I48.11 Longstanding persistent atrial fibrillation; I42.8 Other cardiomyopathies; I35.2 Nonrheumatic aortic (valve) stenosis with insufficiency; I27.21 Secondary pulmonary arterial hypertension; I10 Essential (primary) hypertension; E78.5 Hyperlipidemia, unspecified
CPT/HCPCS: 36415; 80048

== ENCOUNTER → 2020-08-04 14:42 | Outpatient (CLI) | payer MEDICARE, SELFPAY ==
[2020-07-13 10:42] VITALS: BMI 25.4
--- NOTE | 2020-08-04 14:59 | CT_ITS ---
STUDY: CTA CHEST REASON FOR EXAM: Male, 80 years old. TAA. History of thoracic aortic aneurysm. RADIATION DOSAGE (If Supplied By Facility): CTDIvol = ( 23.49 ) mGy, DLP = ( 374.11 ) mGycm TECHNIQUE: The examination was performed with the intravenous administration of IV 100mL Isovue-370. Post-processing of the angiographic images was performed, with multiplanar reformation and 3D reconstruction. Individualized dose optimization techniques were used for this CT. COMPARISON: None. FINDINGS: There is a 1.4 cm hypodense nodule in the mid to lower aspect of the right lobe of the thyroid. There is an 8.7 mm hypodense nodule in the medial aspect of the right breast just deep to the skin surface. This may be a sebaceous cyst. Clinical correlation is recommended. Normal enhancement of the main pulmonary artery and right and left pulmonary arteries. Normal enhancement of the bilateral peripheral pulmonary arteries. There is no demonstrated pulmonary embolism. There is atherosclerotic calcification of the aortic arch with tortuosity. 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 There is calcification of the aneurysmal wall as well as thrombosis of the aneurysm. There is no demonstrated aortic dissection. There are calcifications of the coronary arteries. There is a 1 cm x 1.4 cm rounded filling defect in the anterior lateral aspect of the left atrium at the insertion of the left pulmonary veins. This may represent either a blood clot or myxoma. Clinical correlation is recommended. Normal mediastinum. Normal hilar regions. Normal visualized trachea and bronchi. The lungs are well expanded. Normal pulmonary parenchyma. Normal pleura. Normal chest wall structures. There are degenerative changes of thoracic spine. Normal visualized upper abdomen. CT/CTA Chest W/WO Contrast IMPRESSION: Tortuosity and calcification of the descending aorta and thoracic aorta. 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 1 cm x 1.4 cm filling defect in the anterior lateral aspect of the left atrium at the insertion of the left pulmonary veins. Electronically Signed: Lance Frazier MD at 9:06 EDT , Service support ,
[2020-08-04 16:19] LABS: Anion Gap 6 (5-15); BUN 22 mg/dL (7-18); BUN/Creat Ratio 20.8 RATIO (10-20); Calcium,Total 9.5 mg/dL (8.5-10.1); Chloride 102 mmol/L (98-107); Creatinine, Serum 1.06 mg/dL (0.70-1.30); EST Glomerular Filtration Rate 71 mL/min (>60); Est Glom Filt Rate - Afr Amer 86 mL/min (>60); Glucose 121 mg/dL (74-106); Potassium 3.8 mmol/L (3.5-5.1); Sodium Level 137 mmol/L (136-145)
== END ==
PROVIDERS: PCP Internal Medicine; Referring Provider Internal Medicine Cardiovascular Disease; Visit Provider Internal Medicine Cardiovascular Disease
DX: I71.2 Thoracic aortic aneurysm, without rupture (principal); I50.22 Chronic systolic (congestive) heart failure; R06.00 Dyspnea, unspecified; H34.232 Retinal artery branch occlusion, left eye; I48.11 Longstanding persistent atrial fibrillation; I42.8 Other cardiomyopathies; I35.2 Nonrheumatic aortic (valve) stenosis with insufficiency; I27.21 Secondary pulmonary arterial hypertension; E78.5 Hyperlipidemia, unspecified; I11.0 Hypertensive heart disease with heart failure
CPT/HCPCS: 36415; 71275; 80048; Q9967

== ENCOUNTER → 2020-11-11 15:10 | Outpatient (CLI) | payer MEDICARE, SELFPAY ==
[2020-08-26 08:35] VITALS: BMI 24.4
[2020-11-11 17:12] LABS: Absolute Lymphocyte Count 0.85 X10^3/uL (0.83-4.51); Absolute Neutrophil Count 3.8 X10^3/uL (2.0-7.7); Basophil# 0.08 X10^3/uL; Basophil% 1.4 % (0-1); Eosinophil# 0.42 X10^3/uL; Eosinophils% 7.4 % (0-5); Hematocrit 40.3 % (40-54); Hemoglobin 13.3 g/dL (13.0-16.5); Lymphocyte # 0.85 X10^3/ul (0.83-4.51); Lymphocyte % 15.1 % (19-41); Mean Corpuscular Hgb 29.2 pg (27.0-32.0); Mean Corpuscular Volume 88.6 fL (80-94); Mean Platelet Vol. 9.6 fl (6.2-12.0); Monocyte# 0.51 X10^3/uL; NRBC Flagged by Analyzer 0 % (0-5); Neutrophil # 3.75 X10^3/uL (2.7-7.7); Neutrophil % 66.6 % (47-70); Platelet Count 276 K/mm3 (150-450); RBC Distribution Width CV 14.3 % (11.6-14.6); Red Blood Count 4.55 M/mm3 (4.6-6.2); White Blood Count 5.6 K/mm3 (4.4-11.0)
[2020-11-11 17:43] LABS: BNP,B-Type NATRIURETIC PEPTIDE 265.5 pg/mL (0-100)
[2020-11-11 17:46] LABS: Anion Gap 9 (5-15); BUN 23 mg/dL (7-18); Chloride 99 mmol/L (98-107); Creatinine, Serum 0.88 mg/dL (0.70-1.30); EST Glomerular Filtration Rate 88 mL/min (>60); Est Glom Filt Rate - Afr Amer 106 mL/min (>60); Glucose 100 mg/dL (74-106); Potassium 3.4 mmol/L (3.5-5.1); Sodium Level 137 mmol/L (136-145)
== END ==
PROVIDERS: PCP Internal Medicine; Referring Provider Nurse Practitioner Family; Visit Provider Nurse Practitioner Family
DX: R06.00 Dyspnea, unspecified (principal); I51.3 Intracardiac thrombosis, not elsewhere classified; I50.22 Chronic systolic (congestive) heart failure; I71.2 Thoracic aortic aneurysm, without rupture; H34.232 Retinal artery branch occlusion, left eye; I48.11 Longstanding persistent atrial fibrillation; I42.8 Other cardiomyopathies; E78.5 Hyperlipidemia, unspecified; R05 Cough; I11.0 Hypertensive heart disease with heart failure
CPT/HCPCS: 36415; 80048; 83880; 85025

== ENCOUNTER → 2020-12-01 10:03 | Outpatient (CLI) | payer MEDICARE, SELFPAY ==
[2020-08-26 08:35] VITALS: BMI 24.4
[2020-11-11 15:39] VITALS: BMI 24.4
--- NOTE | 2020-12-01 10:04 | ECHOCS_ITS ---
Reason For Study: Afib, Aflutter Procedure This was a 2D Doppler, Color Flow transthoracic echocardiogram. Contrast injection was performed. Exam performed in department. Left Ventricle Normal LV size. Mild concentric left ventricular hypertrophy. The estimated ejection fraction is 30 %. There is moderate global hypokinesis of the left ventricle. Right Ventricle Normal RV size. Normal systolic function. Atria The left atrium is moderately enlarged. The right atrium is moderately enlarged. Mitral Valve Bileaflet diffuse mitral valve thickening. Mild (1+) eccentric mitral valve insufficiency. Tricuspid Valve Normal tricuspid valve. Mild (1+) tricuspid valve insufficiency. Pulmonary artery systolic pressure is 28 mmHg. Aortic Valve Trisinus/trileaflet aortic valve. Mild focal aortic valve calcification. Mild (1+) aortic valve insufficiency. Pulmonic Valve Normal pulmonic valve. Great Vessels Mildly dilated aortic root. The pulmonary artery is normal size. Normal inferior vena cava. Pericardium/Pleural No pericardial effusion. Medication Diluted definity 3ml given slow IV push to enhance endocardial definition. MMode/2D Measurements & Calculations LVIDd: 5.6 cm IVSd: 1.3 cm Ao root diam: 4.1 cm LVIDs: 4.8 cm LVPWd: 1.2 cm RVDd: 4.0 cm FS: 14.6 % LAV(MOD-bp): 105.8 ml LVAd ap4: 34.3 cm2 SV(MOD-sp4): 34.2 ml LAV(MOD-bp) Indexed: 51.9 ml/m2 LVLd ap4: 7.7 cm LAV(MOD-sp2): 125.1 ml EDV(MOD-sp4): 125.8 ml LAV(MOD-sp4): 84.4 ml EDV(sp4-el): 128.8 ml LVAs ap4: 26.7 cm2 LVLs ap4: 6.5 cm ESV(MOD-sp4): 91.6 ml ESV(sp4-el): 92.5 ml EF(MOD-sp4): 27.2 % EF(sp4-el): 28.2 % SV(sp4-el): 36.3 ml LA A4 area: 28.5 cm2 LA dimension(2D): 4.4 cm RA A4 area: 26.4 cm2 Doppler Measurements & Calculations MV E max luz: 53.6 cm/sec Ao V2 max: 167.0 cm/sec AI max luz: 462.3 cm/sec Ao max P.3 mmHg AI max P.5 mmHg Ao V2 mean: 120.5 cm/sec AI dec slope: 251.2 cm/sec2 Ao mean P.4 mmHg AI P1/2t: 539.2 msec Ao V2 VTI: 26.8 cm LV V1 max: 94.2 cm/sec PA V2 max: 62.1 cm/sec TR max luz: 241.1 cm/sec LV V1 max P.6 mmHg TR max P.3 mmHg ECHO/Echo Complete W/ Contrast Interpretation Summary Normal LV size. Mild concentric left ventricular hypertrophy. The estimated ejection fraction is 30 %. There is moderate global hypokinesis of the left ventricle. The left atrium is moderately enlarged. The right atrium is moderately enlarged. Ordering Physician: Marcos Ruffin Referring Physician: Yin Sweeney Performed By: Lanie Garza, OSIRIS, RVT
== END ==
PROVIDERS: PCP Internal Medicine; Referring Provider Internal Medicine Cardiovascular Disease; Visit Provider Internal Medicine Cardiovascular Disease
DX: I42.8 Other cardiomyopathies (principal)
CPT/HCPCS: 93306; Q9957; A4216; C8929; J3490

== ENCOUNTER → 2020-12-06 11:06 | Outpatient (CLI) | payer MEDICARE, SELFPAY ==
--- NOTE | 2020-12-06 11:08 | RAD_ITS ---
STUDY: X-RAY CHEST REASON FOR EXAM: Male, 80 years old. sob TECHNIQUE: Single AP portable view of the chest. COMPARISON: 04/11/2019 FINDINGS: The lungs are clear and expanded. There is no demonstrated pleural abnormality. Normal size heart. Normal mediastinum and pavithra. Normal visualized pulmonary arteries. Normal visualized aortic arch and descending thoracic aorta. Normal visualized thoracic spine. Normal visualized ribs, clavicles, and shoulders. There is no demonstrated abnormality of the visualized soft tissue structures of the upper abdomen. RAD/Chest PA and Lateral IMPRESSION: Normal x-ray examination of the chest. Electronically Signed: Sachin Landry MD at 8:45 EDT Tel , Service support ,
== END ==
PROVIDERS: PCP Internal Medicine; Referring Provider Nurse Practitioner Family; Visit Provider Nurse Practitioner Family
DX: R05 Cough (principal); R06.00 Dyspnea, unspecified; I51.3 Intracardiac thrombosis, not elsewhere classified; I50.22 Chronic systolic (congestive) heart failure; I71.2 Thoracic aortic aneurysm, without rupture; H34.232 Retinal artery branch occlusion, left eye; I48.11 Longstanding persistent atrial fibrillation
CPT/HCPCS: 71046

== ENCOUNTER 2021-05-16 11:49 | Outpatient (CLI) | payer MEDICARE, SELFPAY ==
[2021-05-16 15:24] LABS: Absolute Lymphocyte Count 0.92 X10^3/uL (0.83-4.51); Absolute Neutrophil Count 3.8 X10^3/uL (2.0-7.7); Basophil# 0.08 X10^3/uL; Basophil% 1.4 % (0-1); Eosinophil# 0.33 X10^3/uL; Eosinophils% 5.6 % (0-5); Hemoglobin 12.8 g/dL (13.0-16.5); Lymphocyte # 0.92 X10^3/ul (0.83-4.51); Lymphocyte % 15.7 % (19-41); Mean Corp Hgb Conc 32.8 g/dL (32-36); Mean Corpuscular Hgb 29.6 pg (27.0-32.0); Mean Corpuscular Volume 90.1 fL (80-94); Mean Platelet Vol. 9.4 fl (6.2-12.0); Monocyte# 0.69 X10^3/uL; Monocyte% 11.8 % (0-10); NRBC Flagged by Analyzer 0 % (0-5); Neutrophil # 3.83 X10^3/uL (2.7-7.7); Neutrophil % 65.2 % (47-70); Platelet Count 262 K/mm3 (150-450); RBC Distribution Width CV 13.4 % (11.6-14.6); RBC Distribution Width SD 44.4 fl (35.1-43.9); Red Blood Count 4.33 M/mm3 (4.6-6.2); White Blood Count 5.9 K/mm3 (4.4-11.0)
[2021-05-16 15:57] LABS: ALB/GLOB Ratio 0.8 RATIO (0.9-2.4); AST(SGOT) 14 U/L (15-37); Alanine Aminotransfer ALT/SGPT 13 U/L (16-61); Albumin, Serum 3.4 g/dL (3.2-5.0); Alkaline Phosphatase 113 U/L (45-117); Anion Gap 7 (5-15); BUN 16 mg/dL (7-18); BUN/Creat Ratio 19.1 RATIO (10-20); Calcium,Total 9.3 mg/dL (8.5-10.1); Chloride 103 mmol/L (98-107); Creatinine, Serum 0.84 mg/dL (0.70-1.30); EST Glomerular Filtration Rate 93 mL/min (>60); Est Glom Filt Rate - Afr Amer 113 mL/min (>60); Globulin 4.1 g/dL (2.2-4.2); Glucose 69 mg/dL (74-106); Potassium 3.4 mmol/L (3.5-5.1); Protein, Total 7.5 g/dL (6.4-8.2); Sodium Level 138 mmol/L (136-145)
== END 2021-05-16 23:59 | disposition short-term general hospital (02) ==
PROVIDERS: PCP Internal Medicine; Referring Provider Internal Medicine; Visit Provider Internal Medicine
DX: M06.9 Rheumatoid arthritis, unspecified (principal); E78.5 Hyperlipidemia, unspecified
CPT/HCPCS: 36415; 80053; 85025

== ENCOUNTER → 2021-10-12 | Outpatient (CLI) | payer MEDICARE, SELFPAY ==
[2021-10-12 15:21] LABS: Absolute Lymphocyte Count 0.85 X10^3/uL (0.83-4.51); Absolute Neutrophil Count 3.4 X10^3/uL (2.0-7.7); Basophil# 0.08 X10^3/uL; Basophil% 1.5 % (0-1); Eosinophil# 0.42 X10^3/uL; Eosinophils% 7.8 % (0-5); Hematocrit 39.5 % (40-54); Hemoglobin 12.5 g/dL (13.0-16.5); Lymphocyte # 0.85 X10^3/ul (0.83-4.51); Lymphocyte % 15.8 % (19-41); Mean Corp Hgb Conc 31.6 g/dL (32-36); Mean Corpuscular Hgb 29.3 pg (27.0-32.0); Mean Corpuscular Volume 92.7 fL (80-94); Mean Platelet Vol. 9.7 fl (6.2-12.0); Monocyte% 11.2 % (0-10); NRBC Flagged by Analyzer 0 % (0-5); Neutrophil # 3.42 X10^3/uL (2.7-7.7); Neutrophil % 63.5 % (47-70); Platelet Count 262 K/mm3 (150-450); RBC Distribution Width CV 13.5 % (11.6-14.6); RBC Distribution Width SD 46.3 fl (35.1-43.9); Red Blood Count 4.26 M/mm3 (4.6-6.2); White Blood Count 5.4 K/mm3 (4.4-11.0)
[2021-10-12 15:54] LABS: AST(SGOT) 17 U/L (15-37); Alanine Aminotransfer ALT/SGPT 14 U/L (16-61); Albumin, Serum 3.7 g/dL (3.2-5.0); Alkaline Phosphatase 94 U/L (45-117); Anion Gap 8 (5-15); BUN 16 mg/dL (7-18); Calcium,Total 9.5 mg/dL (8.5-10.1); Chloride 106 mmol/L (98-107); Creatinine, Serum 1.07 mg/dL (0.70-1.30); EST Glomerular Filtration Rate 70 mL/min (>60); Est Glom Filt Rate - Afr Amer 85 mL/min (>60); Globulin 3.7 g/dL (2.2-4.2); Glucose 96 mg/dL (74-106); Potassium 4.4 mmol/L (3.5-5.1); Protein, Total 7.4 g/dL (6.4-8.2); Sodium Level 142 mmol/L (136-145)
== END | disposition home or self-care (01) ==
LOC: BIMLAB 11:54
PROVIDERS: PCP Internal Medicine; Referring Provider Internal Medicine; Visit Provider Internal Medicine
DX: I42.8 Other cardiomyopathies (principal); I50.22 Chronic systolic (congestive) heart failure; E78.5 Hyperlipidemia, unspecified; R05.3 Chronic cough; R06.00 Dyspnea, unspecified
CPT/HCPCS: 36415; 80053; 83880; 85025

== ENCOUNTER → 2021-10-14 | Outpatient (CLI) | payer MEDICARE, SELFPAY ==
--- NOTE | 2021-10-14 09:45 | RAD_ITS ---
INDICATION: chronic cough EXAMINATION/TECHNIQUE: X-RAY - XR Chest 2 Views COMPARISON: 12/06/2020. FINDINGS: The lungs are clear. Hyperinflated lungs. Tortuous and calcified thoracic aorta. The heart is not enlarged. No pleural effusion or pneumothorax. Degenerative changes of the thoracic spine and shoulders. RAD/Chest PA and Lateral IMPRESSION: No acute radiographic abnormalities. COPD. Electronically Signed: Lev Biggs MD at 18:12 EDT ,
== END | disposition home or self-care (01) ==
LOC: MTRAD 09:45
PROVIDERS: PCP Internal Medicine; Referring Provider Internal Medicine; Visit Provider Internal Medicine
DX: J44.9 Chronic obstructive pulmonary disease, unspecified (principal); I50.22 Chronic systolic (congestive) heart failure; I77.1 Stricture of artery; R05.3 Chronic cough; R06.00 Dyspnea, unspecified
CPT/HCPCS: 71046

== ENCOUNTER → 2022-05-08 | Outpatient (CLI) | payer MEDICARE, SELFPAY ==
--- NOTE | 2022-05-08 13:03 | ECHOD_ITS ---
Reason For Study: CM Procedure This was a 2D Doppler, Color Flow transthoracic echocardiogram. Exam performed in department. Left Ventricle Normal LV size. Left ventricular systolic function is normal. The estimated ejection fraction is 55 %. No regional wall motion abnormalities noted. Right Ventricle Normal RV size. Normal systolic function. Atria The left atrium is moderately enlarged. The right atrium is severely enlarged. Tricuspid Valve Normal tricuspid valve. Mild (1+) tricuspid valve insufficiency. Pulmonary artery systolic pressure is 28 mmHg. Aortic Valve Trisinus/trileaflet aortic valve. Mild focal aortic valve calcification. Peak aortic valve gradient 9 mmHg. Mean aortic valve gradient 5 mmHg. Mild (1+) eccentric aortic valve insufficiency. Pulmonic Valve Normal pulmonic valve. Great Vessels Mildly dilated aortic root. The pulmonary artery is normal size. Normal inferior vena cava. Pericardium/Pleural No pericardial effusion. MMode/2D Measurements & Calculations LVIDd: 5.1 cm IVSd: 1.1 cm Ao root diam: 4.1 cm LVIDs: 3.7 cm LVPWd: 1.1 cm RVDd: 3.9 cm FS: 26.6 % LAV(MOD-bp): 118.5 ml LVAd ap4: 25.5 cm2 LVAd ap2: 24.4 cm2 LAV(MOD-bp) Indexed: 57.2 ml/m2 LVLd ap4: 7.0 cm LVLd ap2: 6.9 cm LAV(MOD-sp2): 115.8 ml EDV(MOD-sp4): 77.9 ml EDV(MOD-sp2): 73.1 ml LAV(MOD-sp4): 121.4 ml EDV(sp4-el): 78.9 ml EDV(sp2-el): 72.9 ml LVAs ap4: 16.7 cm2 LVAs ap2: 17.0 cm2 LVLs ap4: 6.3 cm LVLs ap2: 6.4 cm ESV(MOD-sp4): 37.5 ml ESV(MOD-sp2): 37.6 ml ESV(sp4-el): 37.2 ml ESV(sp2-el): 38.5 ml EF(MOD-sp4): 51.8 % EF(MOD-sp2): 48.7 % EF(sp4-el): 52.8 % SV(MOD-sp4): 40.4 ml SV(MOD-sp2): 35.6 ml SV(sp4-el): 41.7 ml LA dimension(2D): 5.0 cm LA A4 area: 33.5 cm2 RA A4 area: 26.7 cm2 Doppler Measurements & Calculations MV E max luz: 53.7 cm/sec Ao V2 max: 152.5 cm/sec AI max luz: 430.8 cm/sec Ao max P.5 mmHg AI max P.3 mmHg Ao V2 mean: 100.0 cm/sec AI dec slope: 172.1 cm/sec2 Ao mean P.8 mmHg AI P1/2t: 733.0 msec Ao V2 VTI: 28.3 cm LV V1 max: 61.9 cm/sec PA V2 max: 57.0 cm/sec PI end-d luz: 114.6 cm/sec LV V1 max P.6 mmHg TR max luz: 241.5 cm/sec TR max P.3 mmHg ECHO/Echo Complete Interpretation Summary Normal LV size. Left ventricular systolic function is normal. The estimated ejection fraction is 55 %. The left atrium is moderately enlarged. The right atrium is severely enlarged. Mild (1+) eccentric aortic valve insufficiency. Ordering Physician: Amisha Michelle Referring Physician: Yin Sweeney Performed By: Lanie Garza, OSIRIS, RVT
== END | disposition home or self-care (01) ==
LOC: CVS 13:02
PROVIDERS: PCP Internal Medicine; Visit Provider Nurse Practitioner Gerontology
DX: I42.8 Other cardiomyopathies (principal); I77.819 Aortic ectasia, unspecified site
CPT/HCPCS: 93306

== ENCOUNTER → 2022-07-03 | Outpatient (CLI) | payer MEDICARE, SELFPAY ==
--- NOTE | 2022-07-03 15:27 | RAD_ITS ---
EXAM: XR LEFT HAND COMPLETE, 3 OR MORE VIEWS CLINICAL INDICATION: Inflammatory polyarthropathy TECHNIQUE: Frontal, lateral and oblique views of the left hand. This report was created using [employer] report generation technology. COMPARISON: None. FINDINGS: BONES/JOINTS: Mineralization is normal. No periarticular osteoporosis is identified. The distal bradley are intact. There is mild degenerative narrowing of the second MCP joint with mottled periarticular soft tissue calcifications just palmar to the second metacarpal head. Mild degenerative spurring noted about the index through little finger DIP joints and about the little finger PIP joint. Mild degenerative narrowing of the first carpal-metacarpal articulation. There is severe degenerative narrowing of the navicular-trapezium articulation with subchondral sclerosis. The radiocarpal joint space is preserved. Extensive soft tissue calcification noted at the wrist including calcification within the triangular fibrocartilage. No acute fracture. No subluxation. Normal alignment. SOFT TISSUES: Atherosclerotic vascular calcification is present. RAD/Hand Min 3 Views IMPRESSION: No acute fracture or dislocation. Degenerative osteoarthritis. Cartilaginous calcification of the wrist including triangular fibrocartilage calcification, which can be degenerative or due to other etiologies such as calcium pyrophosphate deposition disease. No periarticular erosions. Electronically Signed: Abad Hampton MD at 2:16 EDT ,
--- NOTE | 2022-07-03 15:32 | RAD_ITS ---
EXAM: XR RIGHT HAND COMPLETE, 3 OR MORE VIEWS CLINICAL INDICATION: Inflammatory polyarthropathy TECHNIQUE: Frontal, lateral and oblique views of the right hand. This report was created using [employer] report generation technology. COMPARISON: Left hand radiographs of this date. FINDINGS: BONES/JOINTS: Mineralization is normal. No periarticular osteoporosis is identified. The distal bradley are intact. There is moderately severe degenerative narrowing of the index DIP joint with subchondral sclerosis and marginal osteophytes. There is minimal degenerative spurring about the right thumb interphalangeal joint. There is minimal degenerative narrowing of the first MCP joint. As on the left, there is severe degenerative narrowing of the navicular-trapezium articulation with subchondral sclerosis. No acute fracture or dislocation. No periarticular erosions. No subluxation. SOFT TISSUES: Atherosclerotic vascular calcification is present. OTHER FINDINGS: Calcification of the triangular fibrocartilage is noted, less severe than on the left. 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 [place] fibrocartilage calcification, typically degenerative but this can''t also be caused by other etiologies such as calcium pyrophosphate deposition disease. No periarticular erosions. Electronically Signed: Abad Hampton MD at 2:21 EDT ,
[2022-07-03 17:31] LABS: Absolute Lymphocyte Count 0.95 X10^3/uL (0.83-4.51); Absolute Neutrophil Count 5.3 X10^3/uL (2.0-7.7); Basophil# 0.05 X10^3/uL; Basophil% 0.7 % (0-1); Eosinophil# 0.04 X10^3/uL; Eosinophils% 0.6 % (0-5); Hemoglobin 13.1 g/dL (13.0-16.5); Lymphocyte # 0.95 X10^3/ul (0.83-4.51); Lymphocyte % 13.5 % (19-41); Mean Corp Hgb Conc 32.8 g/dL (32-36); Mean Corpuscular Hgb 32.4 pg (27.0-32.0); Mean Platelet Vol. 9.3 fl (6.2-12.0); Monocyte% 8.5 % (0-10); NRBC Flagged by Analyzer 0 % (0-5); Neutrophil # 5.27 X10^3/uL (2.7-7.7); Neutrophil % 74.9 % (47-70); Platelet Count 240 K/mm3 (150-450); RBC Distribution Width CV 14.9 % (11.6-14.6); RBC Distribution Width SD 53.7 fl (35.1-43.9); Red Blood Count 4.04 M/mm3 (4.6-6.2)
[2022-07-03 17:51] LABS: Vitamin B12 330 pg/mL (211-911); Vitamin D,25 Hydroxy 11.4 ng/mL
[2022-07-03 18:02] LABS: ALB/GLOB Ratio 1.2 RATIO (0.9-2.4); AST(SGOT) 14 U/L (15-37); Alanine Aminotransfer ALT/SGPT 18 U/L (16-61); Albumin, Serum 3.7 g/dL (3.2-5.0); Alkaline Phosphatase 55 U/L (45-117); Anion Gap 9 (5-15); BUN 25 mg/dL (7-18); BUN/Creat Ratio 23.4 RATIO (10-20); Calcium,Total 9.5 mg/dL (8.5-10.1); Chloride 102 mmol/L (98-107); Cholesterol 300 mg/dL (200); Creatinine, Serum 1.07 mg/dL (0.70-1.30); EST Glomerular Filtration Rate 70 mL/min (>60); Est Glom Filt Rate - Afr Amer 85 mL/min (>60); Globulin 3.2 g/dL (2.2-4.2); Glucose 99 mg/dL (74-106); High Density Lipoprotein 74 mg/dL; PSA,Total- Diagnostic < 0.01 ng/mL (0.0-4.0); Potassium 3.9 mmol/L (3.5-5.1); Protein, Total 6.9 g/dL (6.4-8.2); Sodium Level 139 mmol/L (136-145); Triglycerides 281 mg/dL; Very Low Density Lipoprotein 56 mg/dL (5-40)
== END | disposition home or self-care (01) ==
LOC: MTLAB 15:24
PROVIDERS: PCP Internal Medicine; Referring Provider Internal Medicine Rheumatology; Visit Provider Internal Medicine Rheumatology
DX: M06.4 Inflammatory polyarthropathy (principal); I42.8 Other cardiomyopathies; I73.9 Peripheral vascular disease, unspecified; Z79.899 Other long term (current) drug therapy; M19.041 Primary osteoarthritis, right hand; E55.9 Vitamin D deficiency, unspecified; R05.3 Chronic cough; I10 Essential (primary) hypertension; E78.5 Hyperlipidemia, unspecified; Z85.46 Personal history of malignant neoplasm of prostate
CPT/HCPCS: 36415; 73130; 80053; 80061; 82306; 82607; 84153; 84443; 85025

== ENCOUNTER → 2022-09-29 | Outpatient (CLI) | payer MEDICARE, SELFPAY ==
--- NOTE | 2022-09-29 11:34 | RAD_ITS ---
STUDY: X-RAY CHEST REASON FOR EXAM: Male, 82 years old. shortness of breath TECHNIQUE: Frontal and lateral views of the chest. COMPARISON: 10/14/2021. FINDINGS: There is hyperinflation of the lungs consistent with chronic obstructive lung disease (COPD). There is no demonstrated pleural abnormality. There is moderate cardiac enlargement. Normal mediastinum and pavithra. Normal visualized pulmonary arteries. There is atherosclerotic tortuosity of the aortic arch and descending thoracic aorta. There are diffuse degenerative changes of the visualized thoracic spine. Normal visualized ribs, clavicles, and shoulders. There is no demonstrated abnormality of the visualized soft tissue structures of the upper abdomen. RAD/Chest PA and Lateral IMPRESSION: There are findings consistent with COPD. There is no evidence of acute chest disease. Electronically Signed: Ruben Haas MD at 19:07 EDT ,
[2022-09-29 15:35] LABS: Absolute Lymphocyte Count 1.29 X10^3/uL (0.83-4.51); Absolute Neutrophil Count 5.8 X10^3/uL (2.0-7.7); Basophil# 0.07 X10^3/uL; Basophil% 0.9 % (0-1); Eosinophil# 0.14 X10^3/uL; Eosinophils% 1.7 % (0-5); Hematocrit 39.5 % (40-54); Hemoglobin 12.5 g/dL (13.0-16.5); Lymphocyte # 1.29 X10^3/ul (0.83-4.51); Lymphocyte % 15.9 % (19-41); Mean Corp Hgb Conc 31.6 g/dL (32-36); Mean Corpuscular Hgb 30.6 pg (27.0-32.0); Mean Corpuscular Volume 96.6 fL (80-94); Mean Platelet Vol. 9.2 fl (6.2-12.0); Monocyte# 0.67 X10^3/uL; Monocyte% 8.3 % (0-10); NRBC Flagged by Analyzer 0 % (0-5); Neutrophil # 5.82 X10^3/uL (2.7-7.7); Neutrophil % 71.8 % (47-70); Platelet Count 474 K/mm3 (150-450); RBC Distribution Width CV 14.1 % (11.6-14.6); RBC Distribution Width SD 50.4 fl (35.1-43.9); Red Blood Count 4.09 M/mm3 (4.6-6.2); White Blood Count 8.1 K/mm3 (4.4-11.0)
[2022-09-29 15:57] LABS: BNP,B-Type NATRIURETIC PEPTIDE 267.1 pg/mL (0-100)
[2022-09-29 16:06] LABS: ALB/GLOB Ratio 0.9 RATIO (0.9-2.4); AST(SGOT) 12 U/L (15-37); Alanine Aminotransfer ALT/SGPT 14 U/L (16-61); Albumin, Serum 3.3 g/dL (3.2-5.0); Alkaline Phosphatase 65 U/L (45-117); Anion Gap 9 (5-15); BUN 18 mg/dL (7-18); BUN/Creat Ratio 17.3 RATIO (10-20); Calcium,Total 9.9 mg/dL (8.5-10.1); Chloride 102 mmol/L (98-107); Creatinine, Serum 1.04 mg/dL (0.70-1.30); EST Glomerular Filtration Rate 72 mL/min (>60); Est Glom Filt Rate - Afr Amer 88 mL/min (>60); Globulin 3.7 g/dL (2.2-4.2); Glucose 120 mg/dL (74-106); Potassium 3.4 mmol/L (3.5-5.1); Sodium Level 139 mmol/L (136-145)
== END | disposition home or self-care (01) ==
LOC: MTLAB 11:34
PROVIDERS: PCP Internal Medicine; Referring Provider Nurse Practitioner Gerontology; Visit Provider Nurse Practitioner Gerontology
DX: M06.4 Inflammatory polyarthropathy (principal); I42.8 Other cardiomyopathies; I50.22 Chronic systolic (congestive) heart failure; I48.11 Longstanding persistent atrial fibrillation; Z79.899 Other long term (current) drug therapy; M17.0 Bilateral primary osteoarthritis of knee; R06.02 Shortness of breath; R05.3 Chronic cough; I51.3 Intracardiac thrombosis, not elsewhere classified
CPT/HCPCS: 36415; 71046; 80053; 83880; 85025; 85027

== ENCOUNTER → 2022-10-19 | Outpatient (CLI) | payer MEDICARE, SELFPAY ==
[2022-10-19 15:42] LABS: Anion Gap 7 (5-15); BUN 19 mg/dL (7-18); BUN/Creat Ratio 17.1 RATIO (10-20); Calcium,Total 8.7 mg/dL (8.5-10.1); Chloride 105 mmol/L (98-107); Creatinine, Serum 1.11 mg/dL (0.70-1.30); EST Glomerular Filtration Rate 67 mL/min (>60); Est Glom Filt Rate - Afr Amer 81 mL/min (>60); Glucose 107 mg/dL (74-106); Potassium 3.6 mmol/L (3.5-5.1); Sodium Level 138 mmol/L (136-145)
== END | disposition home or self-care (01) ==
LOC: MTLAB 14:02
PROVIDERS: PCP Internal Medicine; Referring Provider Nurse Practitioner Gerontology; Visit Provider Nurse Practitioner Gerontology
DX: R06.00 Dyspnea, unspecified (principal)
CPT/HCPCS: 36415; 80048

== ENCOUNTER → 2023-02-13 | Outpatient (CLI) | payer MEDICARE, SELFPAY ==
--- NOTE | 2023-02-13 10:16 | US_ITS ---
INDICATION: Abdominal swelling, r/o ascites EXAMINATION: Ultrasound US Abdomen Complete TECHNIQUE: Jin-scale and color Doppler imaging was performed of the abdomen. COMPARISON: CT scan of the abdomen and pelvis of 04/11/2019. FINDINGS: LIVER: 1.2 cm cyst in the left lobe of the liver unchanged. Mild hepatomegaly. The liver measures about 19 cm in length. The portal vein is patent with normal hepatopedal flow. No intrahepatic biliary ductal dilatation. There is no free fluid. GALLBLADDER AND BILIARY TREE: No shadowing gallstone, pericholecystic fluid or gallbladder wall thickening is demonstrated. The gallbladder wall measures 2 mm. The proximal common bile duct measures 3.4, which is within normal limits for the patient''s age. SONOGRAPHIC FENG''S SIGN: Negative. PANCREAS: Pancreas is obscured by bowel gas and not visualized. SPLEEN: Normal in size. Small calcifications/calcified granulomata. KIDNEYS: There is no hydronephrosis. Multiple bilateral renal cysts are seen, the largest in the right kidney measures about 2.2 cm and the left kidney measures about 1.4 cm. The right kidney measures 11.2 cm in length. The renal cortex measures 1.2 cm. The left kidney measures 11.2 cm in length. The renal cortex measures 1.1 cm. VESSELS: No evidence of abdominal aortic aneurysm. The inferior vena cava is 2 by bowel gas. US/Abdomen Complete IMPRESSION: 1. No evidence of gallstones. 2. Liver and bilateral renal cysts. Electronically Signed: Chris Denney MD at 12:55 EDT ,
[2023-02-13 11:37] LABS: Absolute Lymphocyte Count 1.11 X10^3/uL (0.83-4.51); Basophil# 0.05 X10^3/uL; Basophil% 0.9 % (0-1); Eosinophil# 0.11 X10^3/uL; Eosinophils% 1.9 % (0-5); Erythrocyte Sedimentation Rate 10 mm/hr (0-20); Hematocrit 39.7 % (40-54); Hemoglobin 12.5 g/dL (13.0-16.5); Lymphocyte # 1.11 X10^3/ul (0.83-4.51); Mean Corp Hgb Conc 31.5 g/dL (32-36); Mean Corpuscular Hgb 31.1 pg (27.0-32.0); Mean Corpuscular Volume 98.8 fL (80-94); Mean Platelet Vol. 9.6 fl (6.2-12.0); Monocyte# 0.52 X10^3/uL; Monocyte% 8.9 % (0-10); NRBC Flagged by Analyzer 0 % (0-5); Neutrophil % 68.6 % (47-70); Platelet Count 286 K/mm3 (150-450); RBC Distribution Width SD 51.3 fl (35.1-43.9); Red Blood Count 4.02 M/mm3 (4.6-6.2); White Blood Count 5.8 K/mm3 (4.4-11.0)
[2023-02-13 12:07] LABS: BNP,B-Type NATRIURETIC PEPTIDE 196.2 pg/mL (0-100)
[2023-02-13 12:09] LABS: Vitamin D,25 Hydroxy 39.8 ng/mL
[2023-02-13 12:18] LABS: ALB/GLOB Ratio 0.9 RATIO (0.9-2.4); AST(SGOT) 14 U/L (15-37); Alanine Aminotransfer ALT/SGPT 17 U/L (16-61); Albumin, Serum 3.4 g/dL (3.2-5.0); Alkaline Phosphatase 56 U/L (45-117); Anion Gap 5 (5-15); BUN 22 mg/dL (7-18); BUN/Creat Ratio 21.2 RATIO (10-20); Calcium,Total 9.2 mg/dL (8.5-10.1); Chloride 106 mmol/L (98-107); Cholesterol 250 mg/dL (200); Creatinine, Serum 1.04 mg/dL (0.70-1.30); EST Glomerular Filtration Rate 72 mL/min (>60); Est Glom Filt Rate - Afr Amer 87 mL/min (>60); Globulin 3.7 g/dL (2.2-4.2); Glucose 128 mg/dL (74-106); High Density Lipoprotein 60 mg/dL; PSA,Total- Diagnostic < 0.01 ng/mL (0.0-4.0); Potassium 3.8 mmol/L (3.5-5.1); Protein, Total 7.1 g/dL (6.4-8.2); Sodium Level 138 mmol/L (136-145); Thyroid Stim Hormone (TSH) 3.95 uIU/mL (0.358-3.74); Triglycerides 278 mg/dL; Very Low Density Lipoprotein 56 mg/dL (5-40)
[2023-02-14 11:49] LABS: Free T3 2.4 pg/mL (2.18-3.98)
== END | disposition home or self-care (01) ==
PROVIDERS: PCP Internal Medicine; Referring Provider Internal Medicine; Visit Provider Internal Medicine
DX: R19.07 Generalized intra-abdominal and pelvic swelling, mass and lump (principal); M05.9 Rheumatoid arthritis with rheumatoid factor, unspecified; I50.22 Chronic systolic (congestive) heart failure; I48.11 Longstanding persistent atrial fibrillation; R79.89 Other specified abnormal findings of blood chemistry; E55.9 Vitamin D deficiency, unspecified; R53.83 Other fatigue; R06.02 Shortness of breath; E78.5 Hyperlipidemia, unspecified; Z85.46 Personal history of malignant neoplasm of prostate; D64.9 Anemia, unspecified; I10 Essential (primary) hypertension; R22.0 Localized swelling, mass and lump, head
CPT/HCPCS: 36415; 76700; 80053; 80061; 82306; 83880; 84153; 84439; 84443; 84481; 85025; 85652; 86140

== ENCOUNTER → 2023-04-23 | Outpatient (CLI) | payer MEDICARE, SELFPAY ==
--- NOTE | 2023-04-23 15:23 | RAD_ITS ---
INDICATION: cough/uri/rales right post EXAMINATION/TECHNIQUE: X-RAY - XR Chest 2 Views COMPARISON: Prior study dated: 10/29/2022 FINDINGS: LINES/DEVICES: None. LUNGS: No consolidation, edema or effusion. No pneumothorax. MEDIASTINUM AND CARDIOVASCULAR STRUCTURES: Cardiac silhouette not enlarged. Atherosclerotic calcifications and tortuosity of the thoracic aorta. Central airways and mediastinal contour are unremarkable. BONES AND SOFT TISSUES: Surgical pins overlying the left humeral head. Degenerative changes of both shoulders. RAD/Chest PA and Lateral IMPRESSION: No radiographic evidence of acute cardiopulmonary disease. Electronically Signed: Chris Denney MD at 15:35 EST ,
== END | disposition home or self-care (01) ==
PROVIDERS: PCP Internal Medicine; Referring Provider Internal Medicine; Visit Provider Internal Medicine
DX: J22 Unspecified acute lower respiratory infection (principal)
CPT/HCPCS: 71046

== ENCOUNTER → 2023-12-12 | Outpatient (CLI) | payer MEDICARE, SELFPAY ==
[2023-12-12 14:07] LABS: Absolute Lymphocyte Count 1.32 X10^3/uL (0.83-4.51); Absolute Neutrophil Count 3.2 X10^3/uL (2.0-7.7); Basophil# 0.06 X10^3/uL; Basophil% 1.1 % (0-1); Eosinophil# 0.13 X10^3/uL; Eosinophils% 2.5 % (0-5); Hematocrit 35.8 % (40-54); Hemoglobin 11.5 g/dL (13.0-16.5); Lymphocyte # 1.32 X10^3/ul (0.83-4.51); Lymphocyte % 25.1 % (19-41); Mean Corp Hgb Conc 32.1 g/dL (32-36); Mean Corpuscular Hgb 29.9 pg (27.0-32.0); Mean Platelet Vol. 8.9 fl (6.2-12.0); Monocyte# 0.57 X10^3/uL; Monocyte% 10.8 % (0-10); NRBC Flagged by Analyzer 0 % (0-5); Neutrophil # 3.16 X10^3/uL (2.7-7.7); Neutrophil % 60.1 % (47-70); Platelet Count 228 K/mm3 (150-450); RBC Distribution Width CV 14.6 % (11.6-14.6); Red Blood Count 3.85 M/mm3 (4.6-6.2); White Blood Count 5.3 K/mm3 (4.4-11.0)
[2023-12-12 14:53] LABS: Anion Gap 7 (5-15); BUN 24 mg/dL (7-18); Calcium,Total 9.3 mg/dL (8.5-10.1); Chloride 106 mmol/L (98-107); EST Glomerular Filtration Rate 75 mL/min (>60); Est Glom Filt Rate - Afr Amer 91 mL/min (>60); Glucose 83 mg/dL (74-106); Potassium 3.5 mmol/L (3.5-5.1); Sodium Level 139 mmol/L (136-145); T4 Free Direct 1.15 ng/dL (0.76-1.46)
== END | disposition home or self-care (01) ==
LOC: LAB 13:33
PROVIDERS: PCP Internal Medicine; Referring Provider Nurse Practitioner Gerontology; Visit Provider Nurse Practitioner Gerontology
DX: R53.83 Other fatigue (principal)
CPT/HCPCS: 36415; 80048; 84439; 84443; 84481; 85025

== ENCOUNTER → 2024-03-05 | Outpatient (CLI) | payer MEDICARE, SELFPAY ==
[2024-03-05 14:46] LABS: Absolute Lymphocyte Count 1.58 X10^3/uL (0.83-4.51); Absolute Neutrophil Count 4.9 X10^3/uL (2.0-7.7); Basophil# 0.08 X10^3/uL; Basophil% 1.1 % (0-1); Eosinophil# 0.14 X10^3/uL; Eosinophils% 1.9 % (0-5); Hematocrit 37.1 % (40-54); Hemoglobin 11.9 g/dL (13.0-16.5); Lymphocyte # 1.58 X10^3/ul (0.83-4.51); Lymphocyte % 20.9 % (19-41); Mean Corp Hgb Conc 32.1 g/dL (32-36); Mean Corpuscular Hgb 30.2 pg (27.0-32.0); Mean Corpuscular Volume 94.2 fL (80-94); Mean Platelet Vol. 9.1 fl (6.2-12.0); Monocyte% 10.6 % (0-10); NRBC Flagged by Analyzer 0 % (0-5); Neutrophil # 4.92 X10^3/uL (2.7-7.7); Neutrophil % 65.1 % (47-70); Platelet Count 294 K/mm3 (150-450); RBC Distribution Width CV 13.7 % (11.6-14.6); RBC Distribution Width SD 47.5 fl (35.1-43.9); Red Blood Count 3.94 M/mm3 (4.6-6.2); White Blood Count 7.6 K/mm3 (4.4-11.0)
[2024-03-05 18:22] LABS: AST(SGOT) 13 U/L (15-37); Alanine Aminotransfer ALT/SGPT 13 U/L (16-61); Albumin, Serum 3.4 g/dL (3.2-5.0); Alkaline Phosphatase 71 U/L (45-117); Anion Gap 7 (5-15); BUN 20 mg/dL (7-18); BUN/Creat Ratio 16.3 RATIO (10-20); Calcium,Total 8.9 mg/dL (8.5-10.1); Chloride 106 mmol/L (98-107); Creatinine, Serum 1.23 mg/dL (0.70-1.30); EST Glomerular Filtration Rate 59 mL/min (>60); Est Glom Filt Rate - Afr Amer 72 mL/min (>60); Free T3 2.3 pg/mL (2.18-3.98); Globulin 3.4 g/dL (2.2-4.2); Glucose 97 mg/dL (74-106); Magnesium 2.3 mg/dL (1.6-2.6); PSA,Total- Diagnostic < 0.01 ng/mL (0.0-4.0); Potassium 3.1 mmol/L (3.5-5.1); Protein, Total 6.8 g/dL (6.4-8.2); Sodium Level 140 mmol/L (136-145); T4 Free Direct 1.13 ng/dL (0.76-1.46)
== END | disposition home or self-care (01) ==
LOC: MTLAB 13:57
PROVIDERS: PCP Internal Medicine; Referring Provider Internal Medicine; Visit Provider Internal Medicine
DX: J22 Unspecified acute lower respiratory infection (principal); I48.11 Longstanding persistent atrial fibrillation; I42.8 Other cardiomyopathies; I10 Essential (primary) hypertension; R05.9 Cough, unspecified; Z85.46 Personal history of malignant neoplasm of prostate
CPT/HCPCS: 36415; 80053; 83735; 84153; 84439; 84443; 84481; 85025

== ENCOUNTER → 2024-06-13 | Outpatient (CLI) | payer MEDICARE, SELFPAY ==
[2024-06-13 15:37] LABS: Anion Gap 13 (5-15); BUN 22 mg/dL (4-19); BUN/Creat Ratio 25.5 RATIO (10-20); Calcium 9.3 mg/dL (7.6-11.0); Carbon Dioxide 21.8 mmol/L (22.0-29.0); Chloride 102 mmol/L (96-108); Creatinine, Serum 0.85 mg/dL (0.70-1.20); EST Glomerular Filtration Rate 85 (>60); Glucose 95 mg/dL (70-99); Potassium 3.1 mmol/L (3.3-5.1); Sodium Level 137 mmol/L (133-145)
== END | disposition home or self-care (01) ==
LOC: LAB 13:37
PROVIDERS: PCP Internal Medicine; Referring Provider Internal Medicine; Visit Provider Internal Medicine
DX: I50.22 Chronic systolic (congestive) heart failure (principal); E87.6 Hypokalemia
CPT/HCPCS: 36415; 80048

== ENCOUNTER → 2025-02-12 | Outpatient (CLI) | payer MEDICARE, SELFPAY ==
--- NOTE | 2025-02-12 15:03 | RAD_ITS ---
PROCEDURE: RAD/Chest PA and Lateral
[2025-02-12 15:17] LABS: Hematocrit 40.0 % (40-54); Hemoglobin 13.2 g/dL (13.0-16.5); Immature Granulocytes Count 0.030 X10^3/uL (0.0-0.0); Mean Corp Hgb Conc 33.0 g/dL (32-36); Mean Corpuscular Volume 90.9 fL (80-94); Mean Platelet Vol. 9.3 fl (6.2-12.0); NRBC Flagged by Analyzer 0 % (0-5); Platelet Count 280 K/mm3 (150-450); RBC Distribution Width CV 13.5 % (11.6-14.6); RBC Distribution Width SD 45.3 fl (35.1-43.9); Red Blood Count 4.40 M/mm3 (4.6-6.2); White Blood Count 6.5 K/mm3 (4.4-11.0)
[2025-02-12 15:36] LABS: Pro- Brain NATRIURETIC PEPTIDE 507 pg/mL (<=1800)
[2025-02-12 15:51] LABS: Anion Gap 10 (5-15); BUN 25 mg/dL (4-19); BUN/Creat Ratio 22.2 RATIO (10-20); Calcium,Total 9.4 mg/dL (7.6-11.0); Carbon Dioxide 25.4 mmol/L (21.0-32.0); Chloride 103 mmol/L (98-108); Potassium 3.7 mmol/L (3.3-5.1)
[2025-02-12 15:58] LABS: Glucose 144 mg/dL (70-99)
== END | disposition home or self-care (01) ==
LOC: RAD 14:50
PROVIDERS: PCP Internal Medicine; Referring Provider Nurse Practitioner Family; Visit Provider Nurse Practitioner Family
DX: R06.02 Shortness of breath (principal); R05.3 Chronic cough; R53.83 Other fatigue
CPT/HCPCS: 36415; 71046; 80048; 83880; 85025